=== PATIENT | male | born 1975 | race Caucasian/White ===

== ENCOUNTER → 2017-02-01 | Outpatient (CLI) | payer OTHER ==
[~2017-02-01] MED LIST: ACET-1311 PO; CHN/1 PO; NAPR1TAB9 PO
[2017-02-01 17:30] LABS: BASO % 0.5 %; BASO ABS # 0.05 K/uL (0-0.2); COMPLETE YES; EOS % 1.6 %; HEMATOCRIT 46.5 % (42-52); IG% 0.2 %; LYMPH % 27.4 %; LYMPH ABS # 2.63 K/uL (1.2-3.4); MEAN CELL VOLUME 86.4 fL (80-100); MEAN CORPUSCULAR HEMOGLOBIN 30.7 pg (25-34); MEAN CORPUSCULAR HGB CONC 35.5 g/dl (32-36); MEAN PLATELET VOLUME 9.1 fL (7.4-10.4); MONO % 5.1 %; NEUT % 65.2 %; PLATELET COUNT 224 K/uL (130-400); RED BLOOD COUNT 5.38 M/uL (4.7-6.1)
[2017-02-01 18:12] LABS: ALKALINE PHOSPHATASE 113 U/L (45-117); ALT/SGPT 120 U/L (12-78); AST/SGOT 64 U/L (15-37); BLOOD UREA NITROGEN 6 mg/dl (7-18); BUN/CREATININE RATIO 6.4 (10-20); CALCIUM 8.5 mg/dl (8.5-10.1); CARBON DIOXIDE 25 mmol/L (21-32); CHLORIDE 105 mmol/L (98-107); CREATININE 0.91 mg/dl (0.60-1.40); GLUCOSE 105 mg/dl (70-99); POTASSIUM 3.8 mmol/L (3.5-5.1); SODIUM 140 mmol/L (136-145)
[2017-02-01 18:35] LABS: C-REACTIVE PROTEIN 0.75 mg/dl (0-0.29)
[2017-02-04 04:39] LABS: IGA SERUM 239 mg/dL (81-463); TIS TRANS IGA 1 U/mL (<4)
== END ==
LOC: C.LAB1850 16:54
PROVIDERS: ATTEND Registered Nurse
DX: R19.7 Diarrhea, unspecified (principal)

== ENCOUNTER → 2017-02-15 | Day surgery (SDC) | payer OTHER ==
[2017-02-05 10:13] VITALS: Ht 177.8 cm; Wt 131.8 kg
[~2017-02-15] VITALS: Ht 177.8 cm; Wt 131.8 kg
[~2017-02-15] MED LIST changes: -ACET-1311 PO; +ATROPINE SULFATE 0.1 MG/ML 5ML SYR IV PRN; -CHN/1 PO; +EpHEDrine SULFATE INJ 50 MG/ML AMP IV PRN; +LIDOCAINE HCL 2% 2 ML VIAL (20MG/ML) ONE; -NAPR1TAB9 PO; +PROPOFOL IV EMULSION 10 MG/ML 20 ML VIAL IV ONE; +SODIUM CHLORIDE 0.9% 500ML 500 ML IV ONE
--- NOTE | 2017-02-15 11:56 | Endo History and Physical ---
History & Physical Date of Service: Feb 15, 2017. Chief Complaint: Diarrhea Referring Physician: Dr. Haney History of Present Illness 41 yo CM who presents for colonoscopy secondary to diarrhea. Past Surgical History Hx Cardiac Surgery: No Hx Internal Defibrillator: No Hx Pacemaker: No Hx Abdominal Surgery: No Hx of Implantable Prosthesis: No Hx Post-Op Nausea and Vomiting: No Hx Cancer Surgery: No Hx Thoracic Surgery: No Hx Orthopedic: No Hx Urinary Tract Surgery: Yes (VASECTOMY) Family History None Social History Smoking Status: Former Smoker Hx Substance Use: No Hx Alcohol Use: No Allergies Coded Allergies: No Known Allergies (Unverified , 02/15/17) Current Medications Reported Home Medications Medications Dose Route/Sig Max Daily Dose Days Date Category No Active Prescriptions or Reported Medications Rx Vital Signs Weight (Kilograms): 131.82 Height (Feet): 5 Height (Inches): 10 Date Time Temp Pulse Resp B/P (MAP) Pulse Ox O2 Delivery O2 Flow Rate FiO2 02/15/17 10:57 36.5 84 20 149/92 (111) 96 Room Air Physical Exam General Appearance: WD/WN, no apparent distress Respiratory/Chest: Auscultation: breath sounds normal Cardiovascular: Heart Auscultation: RRR Abdomen: Bowel Sounds: normal Inspection & Palpation: soft, non-distended, no tenderness, guarding & rebound Assessment and Plan Assessment: 41 yo CM who presents for colonoscopy secondary to diarrhea. Plan: Proceed with colonoscopy.
--- NOTE | 2017-02-15 12:35 | GI REPORT ---
Procedure Date: 02/15/2017 12:03 PM Procedure: Colonoscopy Indications: Chronic diarrhea Medicines: Monitored Anesthesia Care Complications: No immediate complications. Estimated Blood Loss: Estimated blood loss: none. Procedure: Pre-Anesthesia Assessment: - Prior to the procedure, a History and Physical was performed, and patient medications and allergies were reviewed. The patient's tolerance of previous anesthesia was also reviewed. The risks and benefits of the procedure and the sedation options and risks were discussed with the patient. All questions were answered, and informed consent was obtained. Prior Anticoagulants: The patient has taken no previous anticoagulant or antiplatelet agents. ASA Grade Assessment: III - A patient with severe systemic disease. After reviewing the risks and benefits, the patient was deemed in satisfactory condition to undergo the procedure. After I obtained informed consent, the scope was passed under direct vision. Throughout the procedure, the patient's blood pressure, pulse, and oxygen saturations were monitored continuously. The scope was introduced through the anus and advanced to the terminal ileum. The colonoscopy was performed without difficulty. The patient tolerated the procedure well. The quality of the bowel preparation was good. The terminal ileum, ileocecal valve, appendiceal orifice, and rectum were photographed. Findings: Two sessile polyps were found in the rectum and in the transverse colon. The polyps were 5 to 7 mm in size. These polyps were removed with a hot snare. Resection and retrieval were complete. Non-bleeding internal hemorrhoids were found during retroflexion. The hemorrhoids were small. Several random biopsies were obtained with cold forceps for histology in the entire colon. Fluid aspiration for cytology was performed in the entire colon. Impression: - Two 5 to 7 mm polyps in the rectum and in the transverse colon, removed with a hot snare. Resected and retrieved. - Non-bleeding internal hemorrhoids. - Several random biopsies were obtained in the entire colon. - Fluid aspiration was performed. Recommendation: - Resume previous diet. - Continue present medications. - Await pathology results. - Repeat colonoscopy for surveillance based on pathology results. - Return to primary care physician as previously scheduled. Douglas Walters DO 02/15/2017 12:34:47 PM This report has been signed electronically. Note Initiated On: 02/15/2017 12:03 PM I attest to the content of the Intraoperative Record and orders documented therein, exceptions below
--- NOTE | 2017-02-15 12:50 | Anesthesiology Progress Note ---
Anesthesia Post Op Note Date & Time Feb 15, 2017 at 12:50 Vital Signs Pain Intensity: 0 Vital Signs Past 12 Hours Date Time Temp Pulse Resp B/P (MAP) Pulse Ox O2 Delivery O2 Flow Rate FiO2 02/15/17 12:40 70 18 118/86 (97) 97 Room Air 02/15/17 12:25 76 18 119/65 (83) 95 Room Air 02/15/17 12:25 76 18 119/65 (83) 96 Room Air 02/15/17 10:57 36.5 84 20 149/92 (111) 96 Room Air Notes Mental Status: alert / awake / arousable, participated in evaluation Pt Amnestic to Procedure: Yes Nausea / Vomiting: adequately controlled Pain: adequately controlled Airway Patency, RR, SpO2: stable & adequate BP & HR: stable & adequate Hydration State: stable & adequate Anesthetic Complications: no major complications apparent
--- NOTE | 2017-02-15 12:58 | Discharge Instructions ---
Endoscopy Patient Instructions Date / Procedure(s) Performed Feb 15, 2017. Colonoscopy Allergy Information Coded Allergies: No Known Allergies (Unverified , 02/15/17) Discharge Date / Findings Feb 15, 2017. Colon polyps Internal Hemorrhoids Random colon biopsies Stool studies collected Medication Instructions OK to resume all medications today as prescribed Reported Home Medications Medications Dose Route/Sig Max Daily Dose Days Date Category No Active Prescriptions or Reported Medications Rx Provider Instructions Activity Restrictions - No exercising or heavy lifting for 24 hours. - Do not drink alcohol the day of the procedure. - Do not drive a car or operate machinery until the day after the procedure. - Do not make any important decisions or sign important papers in 24 hours after the procedure. Following Day: - Return to full activity which may include returning to work/school. Diet Start your diet with liquids and light foods (jello, soup, juice, toast). Then eat your usual diet if not nauseated. Treatment For Common After Affects For mild abdominal pain, bloating, or excessive gas: - Rest - Eat lightly - Lie on right side Follow-Up Information Follow-up with Dr. Haney as scheduled Anesthesia Information What You Should Know You have had a procedure that required some medicine to reduce anxiety and discomfort. This treatment is called moderate sedation. After receiving the treatment, you may be sleepy, but you will be able to breathe on your own. The effects of the treatment may last for several hours. Follow these instructions along with Activity/Diet recommendations noted above: * Do NOT do anything where dizziness or clumsiness would be dangerous. * Rest quietly at home today, then you can be up and about tomorrow. * Have a responsible person stay with you the rest of today. * You may have had an I.V. today. If so, you may take the dressing off later today. Recommendations Call your doctor if: * Trouble breathing * Continuous vomiting for more than 24 hours * Temperature above 101 degrees * Severe abdominal pain or bloating * Pain not relieved by pain medicine ordered * There is increased drainage or redness from any incision * A large amount of rectal bleeding greater than 2-3 tablespoons. (If you had a polyp/s removed or have hemorrhoids, a small amount of blood - from the rectum is to be expected.) * You have any unanswered questions or concerns. IN THE EVENT OF A SERIOUS EMERGENCY, GO TO THE NEAREST EMERGENCY ROOM Your discharge instructions were prepared by provider Douglas Walters. Patient Instructions Signature Page Kwaku Santiago Patient (or Guardian) Signature/Date: I have read and understand the instructions given to me by my caregivers. Caregiver/RN/Doctor Signature/Date: The above-named patient and/or guardian has received patient instructions on this date. + Original Patient Signature Page (only) stays with chart. Please make copy for patient.
[2017-02-15 13:00] VITALS: BP 127/72; PULSE 70; O2SAT 98
== END | disposition home or self-care (01) ==
LOC: C.GI 10:37
PROVIDERS: ATTEND Internal Medicine
DX: K52.9 Noninfective gastroenteritis and colitis, unspecified (principal); K62.1 Rectal polyp; D12.3 Benign neoplasm of transverse colon; K64.8 Other hemorrhoids; E78.5 Hyperlipidemia, unspecified; H40.9 Unspecified glaucoma; Z87.891 Personal history of nicotine dependence; Z98.52 Vasectomy status; Z98.818 Other dental procedure status; E66.9 Obesity, unspecified; Z68.41 Body mass index [BMI] 40.0-44.9, adult

== ENCOUNTER 2017-11-02 09:12 | Emergency (ER) | payer OTHER ==
[~2017-11-02] VITALS: Ht 177.8 cm; Wt 130.8 kg
[2017-11-02 09:27] VITALS: O2SAT 90
[2017-11-02 09:28] VITALS: TEMP 36.7; Ht 177.8 cm; Wt 130.8 kg
--- NOTE | 2017-11-02 09:42 | EMERGENCY ROOM VISIT NOTE ---
History Report prepared by Leeann: Mary Spence Under the Supervision of: Dr. Santhosh iSmpson D.O. First contact with patient: 09:23 Chief Complaint: CHEST PAIN Stated Complaint: CHEST PAIN Nursing Triage Summary: pt reports awaking around 0630 - 0700 and having episodes of severe chest pain lasting seconds coming every couple mins, center of chest non radiating pain takes breath away nausea with pain History of Present Illness The patient is a 41 year old male who presents to the Emergency Room with complaints of intermittent left chest pain since 0700 this morning. He feels short of breath. He reports nausea. He notes the chest pain went away and then came back. The pain does not radiate. He describes the pain as sharp. The pain is not worsened by any movement or breathing. He states that he has never had these symptoms before. He has not seen his PCP for these symptoms. He does not take any medications. He denies any history of HTN, DM, or history of cardiac problems. He denies any family history of CAD. He denies any issues with eating or drinking. He denies any alcohol use. He is a former smoker. Source of History: patient Onset: 0700 this morning Position: chest Quality: sharp Timing: intermittent Associated Symptoms: + nausea Review of Systems See HPI for pertinent positives & negatives. A total of 10 systems reviewed and were otherwise negative. Past Medical & Surgical Medical Problems: (1) No Known Active Medical Problems Family History No significant family history Social History Smoking Status: Former Smoker Smokeless Tobacco Use: No Alcohol Use: none Drug Use: none Occupation Status: employed Current/Historical Medications Scheduled Omeprazole (Prilosec), 20 MG PO DAILY Allergies Coded Allergies: BEE STING (Unverified Allergy, Unknown, SWELLING, 11/02/17) Physical Exam Vital Signs Date Time Temp Pulse Resp B/P (MAP) Pulse Ox O2 Delivery O2 Flow Rate FiO2 11/02/17 13:01 66 18 118/77 94 Room Air 11/02/17 11:41 65 18 138/76 93 Room Air 11/02/17 09:59 72 20 140/92 92 Room Air 11/02/17 09:34 82 11/02/17 09:28 Room Air 11/02/17 09:28 36.7 80 20 144/89 92 Room Air 11/02/17 09:27 90 Room Air Physical Exam GENERAL: Patient is awake, alert, and in no acute distress. Patient is resting comfortably and showing no signs of anxiety EYES: The conjunctivae are clear. The pupils are round and reactive. EARS, NOSE, MOUTH AND THROAT: The nose is without any evidence of any deformity. Mucous membranes are moist tongue is midline NECK: The neck is nontender and supple. RESPIRATORY: Normal respiratory effort is noted there is no evidence of wheezing rhonchi or rales CARDIOVASCULAR: Regular rate and rhythm noted there no murmurs rubs or gallops normal S1 normal S2 GASTROINTESTINAL: The abdomen is soft. Bowel sounds are present in all quadrants. Abdomen is nontender MUSCULOSKELETAL/EXTREMITIES: There is no evidence of gross deformity full range of motion is noted in the hips and shoulders SKIN: There is no obvious evidence of any rash. There are no petechiae, pallor or cyanosis noted. NEUROLOGIC: Patient is awake alert and oriented x3. Medical Decision & Procedures ER Provider Diagnostic Interpretation: Radiology results as stated below per my review and radiologist interpretation: CHEST ONE VIEW PORTABLE CLINICAL HISTORY: CHEST PAIN pain COMPARISON STUDY: 2013 FINDINGS: Mild cardiomegaly. Lungs are clear. Diaphragms smooth. IMPRESSION: Mild cardiomegaly. Otherwise negative study. The above report was generated using voice recognition software. It may contain grammatical, syntax or spelling errors. Electronically signed by: Pedro English M.D. 11/02/2017 10:00 AM Dictated Date/Time: 11/02/2017 10:00 AM Laboratory Results 11/02/17 09:25 Red Blood Count 5.75, Mean Corpuscular Volume 84.9, Mean Corpuscular Hemoglobin 30.6, Mean Corpuscular Hemoglobin Concent 36.1, Mean Platelet Volume 8.8, Neutrophils (%) (Auto) 62.2, Lymphocytes (%) (Auto) 28.6, Monocytes (%) (Auto) 5.7, Eosinophils (%) (Auto) 2.6, Basophils (%) (Auto) 0.7, Neutrophils # (Auto) 5.36, Lymphocytes # (Auto) 2.46, Monocytes # (Auto) 0.49, Eosinophils # (Auto) 0.22, Basophils # (Auto) 0.06 11/02/17 09:25 Test 11/02/17 09:25 11/02/17 11:40 White Blood Count 8.61 K/uL (4.8-10.8) Red Blood Count 5.75 M/uL (4.7-6.1) Hemoglobin 17.6 g/dL (14.0-18.0) Hematocrit 48.8 % (42-52) Mean Corpuscular Volume 84.9 fL (80-100) Mean Corpuscular Hemoglobin 30.6 pg (25-34) Mean Corpuscular Hemoglobin Concent 36.1 g/dl (32-36) Platelet Count 217 K/uL (130-400) Mean Platelet Volume 8.8 fL (7.4-10.4) Neutrophils (%) (Auto) 62.2 % Lymphocytes (%) (Auto) 28.6 % Monocytes (%) (Auto) 5.7 % Eosinophils (%) (Auto) 2.6 % Basophils (%) (Auto) 0.7 % Neutrophils # (Auto) 5.36 K/uL (1.4-6.5) Lymphocytes # (Auto) 2.46 K/uL (1.2-3.4) Monocytes # (Auto) 0.49 K/uL (0.11-0.59) Eosinophils # (Auto) 0.22 K/uL (0-0.5) Basophils # (Auto) 0.06 K/uL (0-0.2) RDW Standard Deviation 41.3 fL (36.4-46.3) RDW Coefficient of Variation 13.5 % (11.5-14.5) Immature Granulocyte % (Auto) 0.2 % Immature Granulocyte # (Auto) 0.02 K/uL (0.00-0.02) Prothrombin Time 10.7 SECONDS (9.0-12.0) Prothromb Time International Ratio 1.0 (0.9-1.1) Activated Partial Thromboplast Time 26.0 SECONDS (21.0-31.0) Partial Thromboplastin Ratio 1.0 D-Dimer 230 ug/L FEU (0-500) Anion Gap 6.0 mmol/L (3-11) Est Creatinine Clear Calc Drug Dose 128.2 ml/min Estimated GFR () 105.1 Estimated GFR (Non- 90.7 BUN/Creatinine Ratio 5.0 (10-20) Calcium Level 9.1 mg/dl (8.5-10.1) Total Bilirubin 0.5 mg/dl (0.2-1) Direct Bilirubin 0.1 mg/dl (0-0.2) Aspartate Amino Transf (AST/SGOT) 46 U/L (15-37) Alanine Aminotransferase (ALT/SGPT) 74 U/L (12-78) Alkaline Phosphatase 119 U/L (45-117) Total Protein 7.7 gm/dl (6.4-8.2) Albumin 4.0 gm/dl (3.4-5.0) Lipase 168 U/L (73-393) Troponin I < 0.015 ng/ml (0-0.045) Laboratory results per my review. ECG Per My Interpretation Indication: chest pain Rate (beats per minute): 83 Rhythm: normal sinus Findings: no acute ischemic change, no ectopy (No PVCs) Change: Repeat ECG: Normal Sinus Rhythm 66 bpm Findings: No ectopy. No acute ischemic changes. No changes from prior. ED Course 0936: The patient was evaluated in room A4B. A complete history and physical examination were performed. 1226: I reassessed the patient at this time. He is feeling better and resting comfortably. I discussed the results and treatment plan with the patient. I answered all pertaining questions that he had. He expressed understanding and verbalized agreement. The patient will be discharged home. Medical Decision Prior records/ancillary studies reviewed. Triage Nursing notes reviewed. The patient's history was concerning for chest pain. Differential diagnosis: Etiologies such as cardiac ischemia, aortic dissection, pulmonary embolism, pneumonia, pneumothorax, musculoskeletal, infections, pericarditis, myocarditis , esophageal rupture, gastrointestinal, as well as others were entertained. The patient is a 41-year-old male who presented to the emergency department for evaluation of chest pain. The patient has had ongoing chest pain through the day. The patient had serial EKGs as well as serial troponin measurements in the emergency department. I discussed the patient's laboratory and radiographic studies with him. I also discussed the limitations of the emergency department workup for chest pain with him. At this time I feel his likelihood of acute coronary syndrome is low. I have recommended that he rest and avoid any strenuous activity. He was also encouraged to continue all medications as prescribed and follow-up with his primary care physician as soon as possible. Otherwise he was encouraged to return the emergency department immediately if symptoms change worsen or the need arises. Medication Reconcilliation Current Medication List: was personally reviewed by me Blood Pressure Screening Patient's blood pressure: Elevated blood pressure Blood pressure disposition: Elevated BP felt to be situational Impression Primary Impression: Left sided chest pain Scribe Attestation The scribe's documentation has been prepared under my direction and personally reviewed by me in its entirety. I confirm that the note above accurately reflects all work, treatment, procedures, and medical decision making performed by me. Departure Information Dispostion Home / Self-Care Prescriptions Omeprazole (Prilosec) 20 Mg Capcr 20 MG PO DAILY, #30 CAP Prov: Santhosh Simpson, DO 11/02/17 Referrals Santhosh Haney M.D. (PCP) Forms Call Back Authorization, HOME CARE DOCUMENTATION FORM, IMPORTANT VISIT INFORMATION Patient Instructions ED Chest Pain Atypical Unkn Cause, My [facility] Additional Instructions Continue all medications as prescribed. Consider using Maalox or Mylanta as directed for symptomatic relief. Avoid any strenuous activity. Call your family doctor to schedule a follow-up appointment. You may require further studies such as a stress test to further evaluate the cause of your discomfort. Return to the emergency department immediately if symptoms change worsening the need arises.
[2017-11-02 09:44] LABS: BASO % 0.7 %; BASO ABS # 0.06 K/uL (0-0.2); EOS % 2.6 %; EOS ABS # 0.22 K/uL (0-0.5); HEMATOCRIT 48.8 % (42-52); HEMOGLOBIN 17.6 g/dL (14.0-18.0); IG# 0.02 K/uL (0.00-0.02); LYMPH % 28.6 %; LYMPH ABS # 2.46 K/uL (1.2-3.4); MEAN CELL VOLUME 84.9 fL (80-100); MEAN CORPUSCULAR HEMOGLOBIN 30.6 pg (25-34); MEAN CORPUSCULAR HGB CONC 36.1 g/dl (32-36); MEAN PLATELET VOLUME 8.8 fL (7.4-10.4); MONO % 5.7 %; MONO ABS # 0.49 K/uL (0.11-0.59); NEUT % 62.2 %; NEUT ABS # 5.36 K/uL (1.4-6.5); PLATELET COUNT 217 K/uL (130-400); RED CELL DISTRIBUTION WIDTH CV 13.5 % (11.5-14.5); RED CELL DISTRIBUTION WIDTH SD 41.3 fL (36.4-46.3); WHITE BLOOD COUNT 8.61 K/uL (4.8-10.8)
--- NOTE | 2017-11-02 10:01 | DIAGNOSTIC IMAGING REPORT ---
CHEST ONE VIEW PORTABLE CLINICAL HISTORY: CHEST PAIN pain COMPARISON STUDY: 2013 FINDINGS: Mild cardiomegaly. Lungs are clear. Diaphragms smooth. IMPRESSION: Mild cardiomegaly. Otherwise negative study. The above report was generated using voice recognition software. It may contain grammatical, syntax or spelling errors. Electronically signed by: Pedro English M.D. 11/02/2017 10:00 AM Dictated Date/Time: 11/02/2017 10:00 AM
[2017-11-02 10:08] LABS: CALCIUM 9.1 mg/dl (8.5-10.1); CREATININE 1.01 mg/dl (0.60-1.40); POTASSIUM 3.7 mmol/L (3.5-5.1)
[2017-11-02 10:10] LABS: TOTAL PROTEIN 7.7 gm/dl (6.4-8.2)
[2017-11-02] MEDS ORDERED: OMEP20CA59 PO (12:21)
[2017-11-02 13:01] VITALS: BP 118/77; PULSE 66; O2SAT 94
== END 2017-11-02 13:04 | disposition home or self-care (01) ==
LOC: C.EDB 09:13 → C.EDA 13:04
DX: R07.9 Chest pain, unspecified (principal); Z87.891 Personal history of nicotine dependence; Z91.030 Bee allergy status

== ENCOUNTER 2019-03-24 05:14 | Inpatient (IN) ==
[2019-03-24] MEDS ORDERED: SUCCINYLCHOLINE CHLORIDE 20 MG/ML 10 ML VIAL IV ONE (05:15)
[2019-03-24] MEDS ORDERED: LIDOCAINE 2% 20 MG/ML 5 ML SYR IV ONE (05:15)
[2019-03-24] MEDS ORDERED: VECURONIUM BROMIDE 10 MG VIAL IV ONE (05:15)
[2019-03-24] MEDS ORDERED: AMIODARONE HCL INJ 50 MG/ML 3 ML VIAL IV ONE (05:15)
[2019-03-24] MEDS ORDERED: ETOMIDATE 2 MG/ML 20 ML VIAL IV ONE (05:15)
[2019-03-24] MEDS ORDERED: fentaNYL citrate 100 MCG/2 ML CARP IV ONE (05:15)
[2019-03-24] MEDS ORDERED: MIDAZOLAM HCL 5 MG/ML VIAL IV ONE (05:15)
[2019-03-24] MEDS ORDERED: SODIUM BICARBONATE 8.4% INJ 50 MEQ/50 ML VIAL IV ONE (05:15)
[2019-03-24] MEDS ORDERED: MAG SULFATE 50% 1GM/2ML VIAL IV ONE (05:15)
[2019-03-24] MEDS ORDERED: NITROGLYCERIN SL 0.4 MG/TAB TAB SL PRN (05:17)
[2019-03-24] MEDS ORDERED: NITROGLYCERIN SL 0.4 MG/TAB TAB ONE (05:18)
[2019-03-24 05:23] LABS: Basophils # (auto) 0.08 K/uL (0-0.2); Basophils % (auto) 0.8 %; Eosinophils % (auto) 3.1 %; Hematocrit (blood only) 47.8 % (42-52); Hemoglobin 17.1 g/dL (14.0-18.0); Immature Granulocytes # (auto) 0.04 K/uL (0.00-0.02); Immature Granulocytes % (auto) 0.4 %; Lymphocytes # (auto) 3.54 K/uL (1.2-3.4); Lymphocytes % (auto) 36.4 %; Mean Corpuscular Hgb Conc 35.8 g/dL (32-36); Mean Corpuscular Volume 83.7 fL (80-100); Mean Platelet Volume 9.5 fL (7.4-10.4); Monocytes # (auto) 0.75 K/uL (0.11-0.59); Monocytes % (auto) 7.7 %; Neutrophils # (auto) 5.01 K/uL (1.4-6.5); Neutrophils % (auto) 51.6 %; Platelet Count 200 K/uL (130-400); RDW Coefficient of Variation 13.7 % (11.5-14.5); RDW Standard Deviation 41.8 fL (36.4-46.3); Red Blood Count 5.71 M/uL (4.7-6.1); White Blood Count 9.72 K/uL (4.8-10.8)
[2019-03-24] MEDS ORDERED: RAPID SEQUENCE INDUCTION BAG ONE ×2 (05:26→07:09)
[2019-03-24] MEDS ORDERED: AMIODARONE 360MG / 200ML D5W IV ONE (05:29)
[2019-03-24] MEDS ORDERED: HEPARIN (PORCINE) 1000 UNIT/ML 10 ML (CATH LAB USE ONLY) ONE ×2 (05:31→08:53)
[2019-03-24] MEDS ORDERED: fentaNYL citrate 100 MCG/2 ML VIAL ONE (05:31)
[2019-03-24] MEDS ORDERED: NiCARDipine HCL INJ 2.5 MG/ML 10 ML AMP ONE (05:31)
[2019-03-24] MEDS ORDERED: MIDAZOLAM HCL 1 MG/ML 2ML VIAL ONE (05:31)
[2019-03-24] MEDS ORDERED: NITROGLYCERIN/D5W 100MCG/ML 20ML SYR ONE (05:32)
[2019-03-24] MEDS ORDERED: MIDAZOLAM HCL 5 MG/ML 1 ML VIAL IV STA (05:39)
[2019-03-24] MEDS ORDERED: fentaNYL citrate 100 MCG/2 ML VIAL IV STA (05:39)
[2019-03-24] MEDS ORDERED: PROPOFOL IV EMULSION 10 MG/ML 100 ML VIAL IV ONE (05:40)
[2019-03-24] MEDS ORDERED: PROPOFOL 1,000 MG/100 ML VIAL IV SCH (05:45)
[2019-03-24 05:49] LABS: iSTAT Creatinine 1.1 mg/dl (0.6-1.3); iSTAT Hemoglobin 19.7 g/dl (14.0-18.0); iSTAT Ionized Calcium 1.07 mmol/l (1.12-1.32); iSTAT Potassium 3.1 mEq/L (3.3-5.0)
--- NOTE | 2019-03-24 05:52 | Pre Anesthesia Assessment ---
Date of Service March 24, 2019 Pre Sedation Assessment Vital Signs Temp Pulse Resp BP BP Pulse Ox 03/24/19 05:46 121 H 22 95/69 L 100 03/24/19 05:01 36.5 C 20 175/119 H 95 Cardiovascular RRR, no murmur, no edema Respiratory normal respiratory effort, lungs clear to auscultation Pre-Sedation Airway Assessment Smoking Status: Current every day smoker Hx Sleep Apnea: No Hx Difficult Intubation: No Short, Thick Neck: No Thyromental Distance: > or= 3.5 Finger Breadths Oral Cavity: + WNL Mallampati Class: III Procedure Planning Contraindications for Sedation: none Current Medications Reviewed: Yes Notes The planned sedation has been discussed with the patient. Informed Consent was obtained. I have identified the patient, determined the appropriateness of sedation and have assessed the patient immediately prior to the procedure. All medicine(s) and interventions are by my order.
--- NOTE | 2019-03-24 05:56 | Cardiology Consultation ---
Date of Consultation March 24, 2019 Assessment & Plan (1) STEMI (ST elevation myocardial infarction): Presentation consistent with inferior STEMI complicated by cardiac arrest in ED. Recommend proceeding with emergent cardiac catheterization and likely primary PCI. No apparent contraindications to procedure. Further recommendations pending findings of coronary angiography. History of Present Illness History of Present Illness 43-year-old man here with acute chest pain and ECG concerning for acute PA. Patient seen emergently in the ED after heart alert activated from the field. In the ED after receiving nitroglycerin had V. fib arrest requiring defibrillation x2. Subsequently intubated and started on amiodarone. No prior cardiac history. Cardiac risk factors include morbid obesity. No other known medical issues. Chest pain reportedly woke patient from sleep. Given aspirin in route. Chest pain at time of arrival 03/01. Initially hemodynamically stable. EKG showed inferior ST elevations. Allergies Allergy/AdvReac Type Severity Reaction Status Date / Time bee venom protein (honey bee) Allergy Unknown SWELLING Unverified 03/24/19 05:21 Home Medications Home Medications Medication Instructions Recorded Confirmed Type buspirone 10 mg tablet 10 mg PO Q12H 30 Days #60 tab 01/31/19 03/24/19 Rx Patient History Medical History No pertinent past medical history No significant past surgical history No chronic diseases present Family History Other Family history non-contributory Social History Preferred Language: Guamanian Feels Safe at Home: Yes Smoking Status: Current every day smoker Review of Systems Review of Systems: Not obtained as intubated, emergent situation Physical Exam Constitutional: Intubated Eyes: + anicteric sclerae Respiratory: + respiratory distress Auscultation: no crackles Cardiovascular: Rate/Rhythm: regular rhythm and + tachycardic Gastrointestinal (Abdomen): Inspection/Auscultation: + abdomen distended Skin: no rashes, warm and dry Psychiatric: Intubated sedated Results & Data Vital Signs (Past 12 Hours) Vital Signs Temp Pulse Resp BP BP Pulse Ox 03/24/19 05:46 121 H 22 95/69 L 100 03/24/19 05:01 36.5 C 20 175/119 H 95 PG Care Time/CCT Total # of Minutes Spent Total Time Spent with Patient: Total time spent is greater than 50% in coordination of care (as documented) at patient's floor/unit and/or counseling patient:
[2019-03-24 06:00] LABS: Partial Thromboplastin Time 27.5 Seconds (21.0-31.0); Prothrombin Time 10.6 Seconds (9.0-12.0)
[2019-03-24 06:00] LABS: Albumin Level 4.1 gm/dl (3.4-5.0); BUN Creatinine Ratio 7.6 (10-20); Calcium 8.8 mg/dl (8.5-10.1); Creatinine Clr Calc Pharmacy 117.7 ml/min; Est GFR (African American) 96.7; Est GFR (Non-African American) 83.4; Magnesium 1.9 mg/dl (1.8-2.4); Potassium 4.4 mmol/L (3.5-5.1)
[2019-03-24 06:12] LABS: Albumin Globulin Ratio 1.3 (0.9-2); Bilirubin,Total 0.5 mg/dl (0.2-1); Creatine Kinase MB 3.2 ng/ml (0.5-3.6); Globulin 3.1 gm/dl (2.5-4.0); Total Protein 7.2 gm/dl (6.4-8.2); Troponin I 0.019 ng/ml (0-0.045)
[2019-03-24] MEDS ORDERED: EPINEPHrine INJ 1 MG/ML AMP ONE (06:14)
--- NOTE | 2019-03-24 06:34 | XRay Report ---
XR chest 1V portable CLINICAL HISTORY: Atypical chest pain COMPARISON STUDY: 11/02/2017 FINDINGS: The heart is borderline enlarged. There is no failure. There is no focal pulmonary consolid ation. There are no pleural effusions.[ IMPRESSION: No active disease in the chest. Electronically signed by: Raleigh Morfin M.D. 03/24/2019 6:32 AM
--- NOTE | 2019-03-24 06:35 | XRay Report ---
XR chest 1V portable CLINICAL HISTORY: Respiratory failure COMPARISON STUDY: 03/24/2019 FINDINGS: There is an endotracheal tube position 51 mm above the dayna. The heart is borderline enla rged. There are bilateral pulmonary airspace opacities. Diagnostic considerations include pulmonary e arsen versus aspiration.[ IMPRESSION: 1. Interval development of bilateral pulmonary airspace opacities. Likely diagnostic considerations i nclude pulmonary edema versus aspiration 2. Endotracheal tube 51 mm above the dayna Electronically signed by: Raleigh Morfin M.D. 03/24/2019 6:33 AM
[2019-03-24] MEDS ORDERED: SODIUM BICARBONATE 8.4% 150 MEQ in DEXTROSE 5% 1,000 ML IV SCH ×2 (07:15→07:30)
--- NOTE | 2019-03-24 07:31 | Emergency Department Note ---
Entered by Camilla Solis acting as a scribe for Melanie Sheppard MD History of Present Illness General Chief complaint: Chest Pain Stated complaint: CHEST PAIN Time Seen by Provider: 03/24/19 05:17 Source: patient Mode of arrival: EMS History of Present Illness Onset (ago): hour(s) 1 Location: chest Radiation: extremity (left arm) Severity: severe Pain Consistency: + other (Sudden) Current Pain Intensity: 7 Quality: + other (Chest pain) Associated symptoms: + chest pain and + shortness of breath Treatments prior to arrival: aspirin The patient is a 43 year old male presenting to the Emergency Department via EMS complaining of sudden chest pain starting 1 hour ago. The patient reports that he has severe chest pain. He currently rates this pain 03/01. He states that he has never experienced this type of pain before. He notes that he regularly smokes about a pack of cigarettes per day. He adds that he has no cardiac hi story and that he has no family cardiac history. EMS reports that the patient was at rest and began to experience sudden chest pain. They state that this chest pain radiated to the patients left arm. They explain that the patient was short of breath. They note that the patient reported that he had no past medical history, past surgical history or allergies. They add that it is unknown if the patient follows with a PCP. Home Medications Home Medications Medication Instructions Recorded Confirmed Type buspirone 10 mg tablet 10 mg PO Q12H 30 Days #60 tab 01/31/19 03/24/19 Rx Allergies Allergy/AdvReac Type Severity Reaction Status Date / Time bee venom protein (honey bee) Allergy Unknown SWELLING Unverified 03/24/19 05:21 Past Med/Surg History Medical History No pertinent past medical history No significant past surgical history No chronic diseases present Family History Other Family history non-contributory Social History Preferred Language: Mauritian Feels Safe at Home: Yes Smoking Status: Current every day smoker Review of Systems See HPI for pertinent positives & negatives. and A total of 10 systems reviewed and were otherwise negative Physical Exam Vital Signs Vital Signs - 24 hr 03/24/19 05:01 08/02/19 05:46 03/24/19 06:57 Temperature 36.5 C Temperature Source Oral Sepsis Recent Fever Within 48 Hours No Sepsis Action Taken by Nursing No Action Required Pulse Rate [Left Apical] 121 H Pulse Rhythm Regular Respiratory Rate 20 22 24 Respiratory Effort / Characteristics Normal for Patient Blood Pressure 175/119 H Blood Pressure [Left Arm] 95/69 L Blood Pressure Mean 137 Blood Pressure Mean [Left Arm] 77 Blood Pressure Position Lying Blood Pressure Position [Left Arm] Lying Pulse Oximetry 95 100 Oxygen Delivery Method Room Air Fraction of Inspired Oxygen 100 Vital signs reviewed. General: Critically ill-appearing 43 year old male. HEENT: No scleral icterus, PERRLA, neck supple. Atraumatic. Cardiovascular: Regular rate and rhythm, no extra sounds. Pulmonary: Clear to auscultation bilaterally, normal work of breathing. Abdomen: Soft, nontender, nondistended, positive bowel sounds. Obese abdomen. Musculoskeletal: Atraumatic, no peripheral edema. Neurologic: Patient awake alert and oriented x 3. Skin: Warm, dry, no rash Procedures Intubation Time out performed: Yes sedative: Etomidate Mg Given: 20 paralytic: Succinylcholine Mg Given: 100 Laryngoscope: fiber optic video scope ET Tube Size: 7.5 ET Tube Uncuffed: No Tube Secured Depth (cm): 23 Tube Secured Location: lips Tube Placement Confirmation: visualized tube passing through cords, equal breath sounds bilaterally and no breath sounds over epigastrium Patient Tolerated Procedure: well Course 0513: The patient was evaluated in room B1, and a complete history and physical examination were performed. 0519: The patient went into cardiac arrest at this time. 0521: Shock administered at this time. 0522: Epinephrine administered. 0523: Shock administered at this time. 0524: The patient regained his pulse at this time. 0525: Magnesium 2g IV 0526: Patient's rhythm V. fib, 88% O2 saturation 0527: The patients case was discussed with Dr. Horn interventional cardiology at the bedside, patient will be taken to the Armature Inspector. 0530: Etomidate 20 mg and 100 mg of succinylcholine IV 0531: I intubated the patient at this time. 0541: Fentanyl 100 mcg IV 0543: Versed 4mg IV 0548: The patient left the Emergency Department at this time and was taken to the cardiac catheterization lab. 0630: I called the patient's at this time and informed her of the patient's situation. Consultations Consultation #1: I discussed the patients case with Dr. Horn Evening Sitter. He will evaluate the patient for further admission. Time: 05:27 Administered Medications Discontinued Medications Amiodarone HCl/Dextrose (Nexterone / D5w) Confirm Administered Dose 360 mg IV .STK-MED ONE Stop: 03/24/19 05:30 Last Admin: 03/24/19 05:38 Dose: 360 mg Documented by: [id number] Cosigned by: [id number] Miscellaneous () Confirm Administered Dose 1 ea .ROUTE .STK-MED ONE Stop: 03/24/19 05:27 Last Admin: 03/24/19 05:37 Dose: 1 ea Documented by: [id number] Nitroglycerin (Nitrostat) Confirm Administered Dose 1.2 mg .ROUTE .STK-MED ONE Stop: 03/24/19 05:19 Last Admin: 03/24/19 05:36 Dose: 0.4 mg Documented by: [id number] Propofol (Diprivan) Confirm Administered Dose 1,000 mg IV .STK-MED ONE Stop: 03/24/19 05:41 Last Admin: 03/24/19 05:48 Dose: 1,000 mg Documented by: [id number] Cosigned by: [id number] Medical Decision Making Differential Diagnosis Differential diagnoses includes acute coronary syndrome, pulmonary embolus, aortic dissection, musculoskeletal pain, pneumonia, pleural effusion, pneumothorax, gastritis, peptic ulcer disease amongst others. Medical Records Attestation: I reviewed the patient's medical records. Home Medications Current Medication List: was personally reviewed by wv Laboratory Data Attestation: I reviewed the patient's lab results. Result diagrams: 03/24/19 05:05 03/24/19 05:05 Lab Results 03/24/19 03/24/19 03/24/19 Range/Units 05:05 05:05 05:34 WBC 9.72 (4.8-10.8) K/uL RBC 5.71 (4.7-6.1) M/uL Hgb 17.1 (14.0-18.0) g/dL POC Hgb 19.7 H (14.0-18.0) g/dl Hct 47.8 (42-52) % POC Hct 58 H (42-52) % MCV 83.7 (80-100) fL MCH 29.9 (25-34) pg MCHC 35.8 (32-36) g/dL RDW Std Deviation 41.8 (36.4-46.3) fL RDW Coeff of Mynor 13.7 (11.5-14.5) % Plt Count 200 (130-400) K/uL MPV 9.5 (7.4-10.4) fL Immature Gran % (Auto) 0.4 % Neut % (Auto) 51.6 % Lymph % (Auto) 36.4 % Hettinger % (Auto) 7.7 % Eos % (Auto) 3.1 % Baso % (Auto) 0.8 % Immature Gran # (Auto) 0.04 H (0.00-0.02) K/uL Neut # (Auto) 5.01 (1.4-6.5) K/uL Lymph # (Auto) 3.54 H (1.2-3.4) K/uL Hettinger # (Auto) 0.75 H (0.11-0.59) K/uL Eos # (Auto) 0.30 (0-0.5) K/uL Baso # (Auto) 0.08 (0-0.2) K/uL PT (9.0-12.0) Seconds INR (0.9-1.1) APTT (21.0-31.0) Seconds PTT Ratio POC Sodium 139 (135-144) mEq/L Sodium 137 (136-145) mmol/L POC Potassium 3.1 L (3.3-5.0) mEq/L Potassium 4.4 (3.5-5.1) mmol/L POC Chloride 103 (101-112) mEq/L Chloride 103 (98-107) mmol/L Carbon Dioxide 25 (21-32) mmol/L POC Total CO2 14 L (24-31) mEq/l Anion Gap 9.0 (3-11) POC Anion Gap 25.0 (16-25) mmol/L POC BUN 9 (7-18) mg/dl BUN 8 (7-18) mg/dl Creatinine 1.07 (0.6-1.4) mg/dl POC Creatinine 1.1 (0.6-1.3) mg/dl Est Cr Clr Drug Dosing 117.7 ml/min Est GFR ( Amer) 96.7 Est GFR (Non-Af Amer) 83.4 BUN/Creatinine Ratio 7.6 L (10-20) Glucose 152 H (70-99) mg/dl POC Glucose (other) 166 H (70-99) mg/dl Calcium 8.8 (8.5-10.1) mg/dl POC Ioniz Calcium Nino 1.07 L (1.12-1.32) mmol/l Magnesium 1.9 (1.8-2.4) mg/dl Total Bilirubin 0.5 (0.2-1) mg/dl AST 20 (15-37) U/L ALT 28 (12-78) U/L Alkaline Phosphatase 143 H (45-117) U/L Total Creatine Kinase 178 (39-308) U/L CK-MB (CK-2) 3.2 (0.5-3.6) ng/ml CK/CKMB % Calc 1.8 (0-3.0) POC Troponin I (0-0.045) ng/ml Troponin I 0.019 (0-0.045) ng/ml Total Protein 7.2 (6.4-8.2) gm/dl Albumin 4.1 (3.4-5.0) gm/dl Globulin 3.1 (2.5-4.0) gm/dl Albumin/Globulin Ratio 1.3 (0.9-2) Lipase 196 (73-393) U/L TSH 3.220 (0.300-4.500) uIu/ml Specimen Hemolysis 03/24/19 03/24/19 Range/Units 05:36 05:40 WBC (4.8-10.8) K/uL RBC (4.7-6.1) M/uL Hgb (14.0-18.0) g/dL POC Hgb (14.0-18.0) g/dl Hct (42-52) % POC Hct (42-52) % MCV (80-100) fL MCH (25-34) pg MCHC (32-36) g/dL RDW Std Deviation (36.4-46.3) fL RDW Coeff of Mynor (11.5-14.5) % Plt Count (130-400) K/uL MPV (7.4-10.4) fL Immature Gran % (Auto) % Neut % (Auto) % Lymph % (Auto) % Hettinger % (Auto) % Eos % (Auto) % Baso % (Auto) % Immature Gran # (Auto) (0.00-0.02) K/uL Neut # (Auto) (1.4-6.5) K/uL Lymph # (Auto) (1.2-3.4) K/uL Hettinger # (Auto) (0.11-0.59) K/uL Eos # (Auto) (0-0.5) K/uL Baso # (Auto) (0-0.2) K/uL PT 10.6 (9.0-12.0) Seconds INR 1.0 (0.9-1.1) APTT 27.5 (21.0-31.0) Seconds PTT Ratio 1.0 POC Sodium (135-144) mEq/L Sodium (136-145) mmol/L POC Potassium (3.3-5.0) mEq/L Potassium (3.5-5.1) mmol/L POC Chloride (101-112) mEq/L Chloride (98-107) mmol/L Carbon Dioxide (21-32) mmol/L POC Total CO2 (24-31) mEq/l Anion Gap (3-11) POC Anion Gap (16-25) mmol/L POC BUN (7-18) mg/dl BUN (7-18) mg/dl Creatinine (0.6-1.4) mg/dl POC Creatinine (0.6-1.3) mg/dl Est Cr Clr Drug Dosing ml/min Est GFR ( Amer) Est GFR (Non-Af Amer) BUN/Creatinine Ratio (10-20) Glucose (70-99) mg/dl POC Glucose (other) (70-99) mg/dl Calcium (8.5-10.1) mg/dl POC Ioniz Calcium Nino (1.12-1.32) mmol/l Magnesium (1.8-2.4) mg/dl Total Bilirubin (0.2-1) mg/dl AST (15-37) U/L ALT (12-78) U/L Alkaline Phosphatase (45-117) U/L Total Creatine Kinase (39-308) U/L CK-MB (CK-2) (0.5-3.6) ng/ml CK/CKMB % Calc (0-3.0) POC Troponin I < 0.03 (0-0.045) ng/ml Troponin I (0-0.045) ng/ml Total Protein (6.4-8.2) gm/dl Albumin (3.4-5.0) gm/dl Globulin (2.5-4.0) gm/dl Albumin/Globulin Ratio (0.9-2) Lipase (73-393) U/L TSH (0.300-4.500) uIu/ml Specimen Hemolysis Imaging Data Radiologist's Impression: Radiology results as stated below per my review and the radiologist's interpretation: XR chest 1V portable CLINICAL HISTORY: Atypical chest pain COMPARISON STUDY: 11/02/2017 FINDINGS: The heart is borderline enlarged. There is no failure. There is no focal pulmonary consolidation. There are no pleural effusions.[ IMPRESSION: No active disease in the chest. Electronically signed by: Raleigh Morfin M.D. 03/24/2019 6:32 AM XR chest 1V portable CLINICAL HISTORY: Respiratory failure COMPARISON STUDY: 03/24/2019 FINDINGS: There is an endotracheal tube position 51 mm above the dayna. The heart is borderline enlarged. There are bilateral pulmonary airspace opacities. Diagnostic considerations include pulmonary edema versus aspiration.[ IMPRESSION: 1. Interval development of bilateral pulmonary airspace opacities. Likely diagnostic considerations include pulmonary edema versus aspiration 2. Endotracheal tube 51 mm above the dayna Electronically signed by: Raeligh Morfin M.D. 03/24/2019 6:33 AM ECG Data Attestation: I personally reviewed and interpreted this ECG as follows: Indication: chest pain Rate (beats per minute): 87 Rhythm: normal sinus Findings: + ST depression (anteriorly) and + ST elevation (in inferior leads) Blood Pressure Blood Pressure Findings: Low blood pressure Blood Pressure Disposition: further management by hospitalist TRIP Thorne This patient was evaluated and appeared to be in no significant distress. IV access was obtained and laboratory work was drawn. The patient was placed on a raw material planner. Patient did receive aspirin prior to arrival. EKG prehospital and on arrival confirms an inferior ST elevation IA. Patient was given 1 sublingual tablet of nitroglycerin. He had a sudden V. fib cardiac arrest witnessed in the emergency department. CPR was initiated immediately. Patient was given 1 amp of epi and placed on the defibrillator. Patient was shocked x2 and converted to a sinus tachycardia with significant irregularity. Patient did receive 2 g of IV magnesium. Patient had palpable pulses. He was given 150 mg of IV amiodarone and placed on a drip. After intubation, patient was sedated with IV Versed and fentanyl. He was placed on a propofol drip and given a 50 mg bolus by myself. Patient was taken to the catheterization lab by Dr. Horn. I did contact the patient's letting her know his critical state. She states she is on her way to the hospital. RAMÍREZ URRUTIA was called in the Armature Inspector. I responded and was asked to help arrange transfer to [facility]. Dr. Horn was at the patient's side continuing his interventions and ACLS protocols. Compressions were in progress. Another call was made to the patient's , Joselien, advising her of the plans for transfer to [facility]. Impression & Plan STEMI (ST elevation myocardial infarction), Cardiac arrest with ventricular fibrillation Critical Care Time Critical Care Time: Yes Total Critical Care Time: 60 I have personally spent 80 minutes of critical care time in the direct management of this patient. This includes bedside care, interpretation of diagnostic studies, and testing, discussion with consultants, patient, and family members, and other required patient management activities. This 80 minutes is in excess of all separately billable procedures. Discharge Plan Visit Data *Final* Discharge Date/Time: 03/24/19 05:50 Chief Complaint: Chest Pain Stated Complaint: CHEST PAIN ED Provider: Melanie Sheppard Discharge Problem: STEMI (ST elevation myocardial infarction), Cardiac arrest with ventricular fibrillation Patient Disposition: Admitted As Inpatient Discharge Instructions Interventions: ED Discharge Assessment Last Done: 03/24/19 05:50 Forms Stand Alone Forms: Call Back Authorization, [facility] Prescriptions Prescriptions: No Action buspirone 10 mg tablet 10 mg PO Q12H 30 Days Qty: 60 RF: 3 Referrals Referrals: Santhosh Haney MD [Primary Care Provider] - Discharge Problem: STEMI (ST elevation myocardial infarction) Qualifiers: Involved coronary artery: unspecified coronary artery Qualified Code(s): I21.3 - ST elevation (STEMI) myocardial infarction of unspecified site The scribe's documentation has been prepared under my direction and personally reviewed by me in its entirety. I confirm that the note above accurately reflects all work, treatment, procedures, and medical decision making performed by me.
--- NOTE | 2019-03-24 07:36 | Critical Care Consultation ---
Date of Consultation March 24, 2019 Assessment & Plan (1) Cardiac arrest with ventricular fibrillation: Reason Critically Ill: Mr. Kwaku Santiago is a 43 y/o male with ECG STEMI consistent with inferior infarct, cardiac arrest from cardiogenic shock with ventricular fibrillation, CPR/ALCS performed, PCI performed with stent placed to 100% occluded RCA with return to spontaneous circulation. Patient was transferred to [facility] by helicopter transport. Neuro: Sedation was given Midazolam Also received fentanyl Patient is also under neuromuscular blockade with rocuronium Patient packed in ice to neck, axilla, groin. Cardiac Hx of smoking and obesity for cardiac risk factors. Had ASA in route and NTG in ED STEMI consistent with inferior infarct Cardiac cath Findings: * LM -large caliber vessel no significant disease * LAD -moderate caliber vessel, proximal mid luminal irregularities, mild distal diffuse disease and extends to apex * Circumflex -moderate caliber vessel, luminal irregularities, 30-40% proximal OM 2 * RCA -dominant, 100% proximal RCA occlusion Cardiac arrest in ED with CPR/ALCS that was refractory to multiple shocks and epi. Received a total of 15 shocks. On Epi, Norepi, Amio drips echocardio performed at bedside in cardiac cardiac cath tech Heparin and Ticagrelor was started in ED. Resp Intubated in ED with mechanical ventilation PEEP 10, FiO2 80% 749 peep dropped to 5 Renal/lytes Lytes ordered at bedside Endo: No known history of DM or thyorid dz GI No active concerns No active concerns Heme No obvious source of bleeding outside of iatrogenic surgical access sites ID No current concerns Lines: 14 Fr right common femoral artery, 6 Fr right common femoral vein, 6 Fr left common femoral artery, 7 Fr left common femoral vein Catheters: JR4 guide, diagnostic JL4 (2) STEMI (ST elevation myocardial infarction): Supervising Physician Co-Signing Physician Notes Dr. Ashton was resident physician during care of patient. I separately evaluated patient for mckeon portions of the history and the exam. I was present during the critical portion of medical decision making, and I discussed the case with the resident. I generally agree with the findings and plan. Patient critically ill due to acute ST elevation PA with subsequent ventricular fibrillation, respiratory failure. I arrived at the cardiac Hospital Supervisor at 0700 and managed the ventilator and vasoactive medication until 0745 Patient is being transferred to [facility]. We have initiated cooling procedures with ice in the axilla groin and neck area. He had an extended episode of ventricular fibrillation of at least 30 minutes to approximately 60 minutes, he likely will require continuous EEG monitoring for concern of status epilepticus secondary to anoxic brain injury. History of Present Illness Reason for Consultation: Cardiac Arrest History of Present Illness Mr. Kwaku Santiago is a 43 y/o male who presented to [facility] ED with complaints of chest pain. According to ER report, patient woke up around 4am with sudden onset of chest pain that radiated to left arm. Patient arrived to [facility] ED by EMS. ASA received en route. Chest pain was described as severe according to report. He is a current smoker. But had no cardiac history or family history. An ECG showed stemi consistent with inferior infarct. He was given NTG in ED. Then had cardiac arrest with v. fib at approximately 0519. CPR/ALCS was started and received defibrillation x2. He was given IV heparin and Ticagrelor 180mg in ED. He was taken to cardiac cardiac cath tech for PCI with 100% occlusion. VF refractory to multiple shocks and rounds of epinephrine. Stent was placed to RCA which then patient developed perfusing wide-complex rhythm and CPR stopped. He was then placed on epinephrine, nor epi drips. In total received 15 shock. Maintained adequate maps with Impella support and pressors weaned off. Allergies Allergy/AdvReac Type Severity Reaction Status Date / Time bee venom protein (honey bee) Allergy Unknown SWELLING Unverified 03/24/19 05:21 Home Medications Home Medications Medication Instructions Recorded Confirmed Type buspirone 10 mg tablet 10 mg PO Q12H 30 Days #60 tab 01/31/19 03/24/19 Rx Patient History Medical History No pertinent past medical history No significant past surgical history No chronic diseases present Family History Other Family history non-contributory Social History Preferred Language: Cypriot Feels Safe at Home: Yes Smoking Status: Current every day smoker Review of Systems Review of Systems: Unobtainable due to endotracheal tube Physical Exam Constitutional: + mechanically ventilated Eyes: + eyelid abnormality (edema bilaterally) Neck: trachea midline Respiratory: mechanical ventilation Cardiovascular: Rate/Rhythm: + tachycardic Extremities: + vascular access device Musculoskeletal: Head/Neck/Chest: normocephalic and head atraumatic Extremities: extremities normal to inspection Skin: no rashes, warm and dry Neurologic: + not awake unable to assess Psychiatric: unable to assess Results & Data Vital Signs (Past 12 Hours) Vital Signs Temp Pulse Resp BP BP Pulse Ox 03/24/19 06:57 24 03/24/19 05:46 121 H 22 95/69 L 100 03/24/19 05:01 36.5 C 20 175/119 H 95 Laboratory Results Laboratory Results - last 24 hr 03/24/19 03/24/19 03/24/19 05:05 05:05 05:34 WBC 9.72 RBC 5.71 Hgb 17.1 POC Hgb 19.7 H Hct 47.8 POC Hct 58 H MCV 83.7 MCH 29.9 MCHC 35.8 RDW Std Deviation 41.8 RDW Coeff of Mynor 13.7 Plt Count 200 MPV 9.5 Immature Gran % (Auto) 0.4 Neut % (Auto) 51.6 Lymph % (Auto) 36.4 [place] % (Auto) 7.7 Eos % (Auto) 3.1 Baso % (Auto) 0.8 Immature Gran # (Auto) 0.04 H Neut # (Auto) 5.01 Lymph # (Auto) 3.54 H [place] # (Auto) 0.75 H Eos # (Auto) 0.30 Baso # (Auto) 0.08 PT INR APTT PTT Ratio Activ Coag Time Kaolin POC pH POC pCO2 POC pO2 POC HCO3 POC Base Excess POC ABG O2 Sat POC Sodium 139 Sodium 137 POC Potassium 3.1 L Potassium 4.4 POC Chloride 103 Chloride 103 Carbon Dioxide 25 POC Total CO2 14 L Anion Gap 9.0 POC Anion Gap 25.0 POC BUN 9 BUN 8 Creatinine 1.07 POC Creatinine 1.1 Est Cr Clr Drug Dosing 117.7 Est GFR ( Amer) 96.7 Est GFR (Non-Af Amer) 83.4 BUN/Creatinine Ratio 7.6 L Glucose 152 H POC Glucose (other) 166 H Calcium 8.8 POC Ioniz Calcium Nino 1.07 L Magnesium 1.9 Total Bilirubin 0.5 AST 20 ALT 28 Alkaline Phosphatase 143 H Total Creatine Kinase 178 CK-MB (CK-2) 3.2 CK/CKMB % Calc 1.8 POC Troponin I Troponin I 0.019 Total Protein 7.2 Albumin 4.1 Globulin 3.1 Albumin/Globulin Ratio 1.3 Lipase 196 TSH 3.220 Specimen Hemolysis 03/24/19 03/24/19 03/24/19 05:36 05:40 06:17 WBC RBC Hgb POC Hgb Hct POC Hct MCV MCH MCHC RDW Std Deviation RDW Coeff of Mynor Plt Count MPV Immature Gran % (Auto) Neut % (Auto) Lymph % (Auto) [place] % (Auto) Eos % (Auto) Baso % (Auto) Immature Gran # (Auto) Neut # (Auto) Lymph # (Auto) [place] # (Auto) Eos # (Auto) Baso # (Auto) PT 10.6 INR 1.0 APTT 27.5 PTT Ratio 1.0 Activ Coag Time Kaolin 191 H POC pH POC pCO2 POC pO2 POC HCO3 POC Base Excess POC ABG O2 Sat POC Sodium Sodium POC Potassium Potassium POC Chloride Chloride Carbon Dioxide POC Total CO2 Anion Gap POC Anion Gap POC BUN BUN Creatinine POC Creatinine Est Cr Clr Drug Dosing Est GFR ( Amer) Est GFR (Non-Af Amer) BUN/Creatinine Ratio Glucose POC Glucose (other) Calcium POC Ioniz Calcium Nino Magnesium Total Bilirubin AST ALT Alkaline Phosphatase Total Creatine Kinase CK-MB (CK-2) CK/CKMB % Calc POC Troponin I < 0.03 Troponin I Total Protein Albumin Globulin Albumin/Globulin Ratio Lipase TSH Specimen Hemolysis 03/24/19 03/24/19 03/24/19 06:48 07:03 07:43 WBC RBC Hgb POC Hgb Hct POC Hct MCV MCH MCHC RDW Std Deviation RDW Coeff of Mynor Plt Count MPV Immature Gran % (Auto) Neut % (Auto) Lymph % (Auto) [place] % (Auto) Eos % (Auto) Baso % (Auto) Immature Gran # (Auto) Neut # (Auto) Lymph # (Auto) [place] # (Auto) Eos # (Auto) Baso # (Auto) PT INR APTT PTT Ratio Activ Coag Time Kaolin 307 H POC pH 7.05 L* 7.08 L* POC pCO2 66 H 68 H POC pO2 114 H 51 L POC HCO3 18 L 20 POC Base Excess -12.0 L -10.0 L POC ABG O2 Sat 96.0 H 70.0 L POC Sodium Sodium POC Potassium Potassium POC Chloride Chloride Carbon Dioxide POC Total CO2 20 L 22 L Anion Gap POC Anion Gap POC BUN BUN Creatinine POC Creatinine Est Cr Clr Drug Dosing Est GFR ( Amer) Est GFR (Non-Af Amer) BUN/Creatinine Ratio Glucose POC Glucose (other) Calcium POC Ioniz Calcium Nino Magnesium Total Bilirubin AST ALT Alkaline Phosphatase Total Creatine Kinase CK-MB (CK-2) CK/CKMB % Calc POC Troponin I Troponin I Total Protein Albumin Globulin Albumin/Globulin Ratio Lipase TSH Specimen Hemolysis 03/24/19 03/24/19 08:26 08:31 WBC RBC Hgb POC Hgb 16.3 Hct POC Hct 48 MCV MCH MCHC RDW Std Deviation RDW Coeff of Mynor Plt Count MPV Immature Gran % (Auto) Neut % (Auto) Lymph % (Auto) [place] % (Auto) Eos % (Auto) Baso % (Auto) Immature Gran # (Auto) Neut # (Auto) Lymph # (Auto) [place] # (Auto) Eos # (Auto) Baso # (Auto) PT INR APTT PTT Ratio Activ Coag Time Kaolin POC pH 7.25 L POC pCO2 52 H POC pO2 64 L POC HCO3 23 POC Base Excess -4.0 POC ABG O2 Sat 88.0 L POC Sodium 140 Sodium POC Potassium 3.5 Potassium POC Chloride 99 L Chloride Carbon Dioxide POC Total CO2 24 22 L Anion Gap POC Anion Gap 24.0 POC BUN 8 BUN Creatinine POC Creatinine 1.1 Est Cr Clr Drug Dosing Est GFR ( Amer) Est GFR (Non-Af Amer) BUN/Creatinine Ratio Glucose POC Glucose (other) 439 H* Calcium POC Ioniz Calcium Nino 1.04 L Magnesium Total Bilirubin AST ALT Alkaline Phosphatase Total Creatine Kinase CK-MB (CK-2) CK/CKMB % Calc POC Troponin I Troponin I Total Protein Albumin Globulin Albumin/Globulin Ratio Lipase TSH Specimen Hemolysis PG Care Time/CCT Total # of Minutes Spent Total Time Spent with Patient: Total time spent is greater than 50% in production cook rdination of care (as documented) at patient's floor/unit and/or counseling patient: Critical Care Time: Yes Total Critical Care Time: 45 Resident Activity Tracking Resident Involvement: Resident Care Provided Care Provided: Adult Hospital Medicine (ICU) (1) STEMI (ST elevation myocardial infarction) Involved coronary artery: unspecified coronary artery Qualified Code(s): I21.3 - ST elevation (STEMI) myocardial infarction of unspecified site
--- NOTE | 2019-03-24 07:36 | Cardiac Catheterization ---
[facility] Data: Physician Relations Representative Cardiac Status Clinical evaluation leading to the procedure CAD Presenation: STEMI Anginal Classification: CCS IV Heart Failure: No Cardiogenic Shock within 24 Hours: Yes Cardiac Arrest within 24 Hours: Yes Diagnostic Physicians Name: Jack Horn MD Status: Emergency Closure Device Percutaneous Entry Location: Radial Closure Device: Radial Band Recommendations: None PCI Indication: Immediate PCI for STEMI First Noted: First EKG Reason For Delay in PCI:: Difficult vascular access Lesion Segment Name: proximal RCA Culprit Artery: Yes Stenosis Prior to Rx (%): 100 Pre-Procedure CHARLA Flow: 0 Previously Treated Lesion: No Lesion Complexity: Non-High/Non-C Lesion Length (mm): 15 Thrombus Present: Yes Bifurcation Lesion: No Guidewire Across Lesion: Stenosis Post-Procedure (%): 0 Post-Procedure CHARLA Flow: 3 Devices(s) Deployed: Yes Yes Intraprocedure Events Significant Disection: No Perforation: No
[2019-03-24] MEDS ORDERED: TICAGRELOR 90 MG TAB PO ONE (07:59)
[2019-03-24] MEDS ORDERED: HEPARIN 25000 UNIT/500 ML D5W IV ONE (08:02)
--- NOTE | 2019-03-24 08:25 | Cardiac Catheterization ---
ACC Data: Director Translational Cardiac Status Clinical evaluation leading to the procedure Diagnostic Physicians Name: Jack Horn MD Closure Device Recommendations: None
--- NOTE | 2019-03-24 08:27 | Post Operative Brief Note ---
Cardiology Brief Post Op Date of Surgery March 24, 2019 Pre & Post Diagnosis Operation Date: 03/24/19 17:25 <No data on this case meets the specified criteria> Procedure -- Log Snaker Jack Horn MD Product Safety Technical Assistant Deshaun Estimated Blood Loss 30 Findings Consistent with Post-Op Diagnosis Indication: STEMI/Heart Alert Access: 14 Fr right common femoral artery, 6 Fr right common femoral vein, 6 Fr left common femoral artery, 7 Fr left common femoral vein Catheters: JR4 guide, diagnostic JL4 Findings: LM -large caliber vessel no significant disease LAD -moderate caliber vessel, proximal mid luminal irregularities, mild distal diffuse disease and extends to apex Circumflex -moderate caliber vessel, luminal irregularities, 30-40% proximal OM 2 RCA -dominant, 100% proximal RCA occlusion Hospital course Patient brought to ED via EMS with inferior ST elevations on EKG in route Endorsed 7-10 chest pain on arrival prior to VF arrest requiring defibrillation x2 with ROSC. Patient intubated in ED. Upon arrival to Truck Trailer Mechanic patient had VF arrest. CPR begun, VF refractory to multiple shocks and rounds of epinephrine. Right common femoral artery access under ultrasound guidance with confirmation of suitable iliac for Impella Impella placed and started P8. Cardiac arrest continued with ongoing compressions, Holger device Left common femoral artery access obtained and RCA accessed with JR4 guide Occluded proximal RCA crossed with BMW wire Proximal RCA dilated with 2.5 balloon with reestablished flow RCA stented with 3.0 x 22 mm [place] drug-eluting stent With reestablish flow developed perfusing wide-complex rhythm and CPR stopped Patient placed on epinephrine, nor epi drips In total received 15 shocks Post procedure maintaining adequate maps with Impella support and pressors weaned off 6 Fr left JACQUARD TWINE POLISHER OPERATOR sheath kinked and removed. Radial artery catheter placed for monitoring. Sheath sutured in place Ticagrelor administered Summary: 1. Inferior STEMI STEMI/Occluded proximal RCA 2. Cardiac arrest, cardiogenic shock 3. Successful PCI of proximal RCA with single drug-eluting stent (3.0 x 22 Donnie) Recommendations: Transfer to [facility] for continued hemodynamic support
[2019-03-24] MEDS ORDERED: EPINEPHrine 4 MG in DEXTROSE 5% BRADYCARDIA IV SCH (08:45)
[2019-03-24] MEDS ORDERED: SODIUM BICARB 8.4% INJ 50 MEQ/50 ML SYR ONE (08:48)
[2019-03-24 09:05] LABS: iSTAT Arterial Blood Gas HCO3 18 meg/L (19-24); iSTAT Arterial Blood Gas pCO2 66 mmHg (35-46); iSTAT Arterial Blood Gas pH 7.05 (7.35-7.45); iSTAT Carbon Dioxide 20 mEq/l (24-31)
[2019-03-24 09:05] LABS: iSTAT Arterial Blood Gas HCO3 23 meg/L (19-24); iSTAT Arterial Blood Gas pCO2 52 mmHg (35-46); iSTAT Arterial Blood Gas pH 7.25 (7.35-7.45); iSTAT Carbon Dioxide 24 mEq/l (24-31)
[2019-03-24 09:05] LABS: iSTAT Creatinine 1.1 mg/dl (0.6-1.3); iSTAT Hemoglobin 16.3 g/dl (14.0-18.0); iSTAT Ionized Calcium 1.04 mmol/l (1.12-1.32); iSTAT Potassium 3.5 mEq/L (3.3-5.0)
[2019-03-24 09:05] LABS: iSTAT Arterial Blood Gas HCO3 20 meg/L (19-24); iSTAT Arterial Blood Gas pCO2 68 mmHg (35-46); iSTAT Arterial Blood Gas pH 7.08 (7.35-7.45); iSTAT Carbon Dioxide 22 mEq/l (24-31)
--- NOTE | 2019-03-24 11:35 | Cardiac Catheterization ---
[facility] Data: Gre Instructor Cardiac Status Clinical evaluation leading to the procedure CAD Presenation: STEMI Anginal Classification: CCS IV Heart Failure: NYHA Class: CCS II Cardiogenic Shock within 24 Hours: Yes Cardiac Arrest within 24 Hours: Yes Imaging Studies Past 6 Months: No Stress Studies Past 6 Months: No Diagnostic Physicians Name: Jack Horn MD Status: Emergency Closure Device Percutaneous Entry Location: Femoral Recommendations: None PCI Indication: Immediate PCI for STEMI First Noted: First EKG Reason For Delay in PCI:: Difficult vascular access Lesion Segment Name: proximal RCA Culprit Artery: Yes Stenosis Prior to Rx (%): 100 Chronic Total Occlusion: No IVUS: No FFR: No Pre-Procedure CHARLA Flow: 0 Previously Treated Lesion: No Lesion Complexity: Non-High/Non-C Lesion Length (mm): 12 Thrombus Present: Yes Bifurcation Lesion: No Guidewire Across Lesion: Stenosis Post-Procedure (%): 0 Post-Procedure CHARLA Flow: 3 Devices(s) Deployed: Yes Yes Intraprocedure Events Significant Disection: No Perforation: No Cardiac Cath Procedure Full Procedure Date March 24, 2019 Pre-Procedure Diagnosis Pre-Procedure Diagnosis: STEMI AUC Score AUC Score: 9 Post-Procedure Diagnosis Post-Procedure Diagnosis: Severe CAD, Successful PCI, Decreased LV Systolic Function and Normal Intracardiac Pressures Procedure(s) Performed Procedure(s) Performed: Coronary Angiography, Left Heart Cath, Right Heart Cath, Drug Eluting Stent, Temporary Pacemaker, Ultrasound Guided Vascular Access, CPR, Defibrillation, Femoral Artery Angiography and Procedure (Impella) Title Vehicle Service Attendant Jack Horn MD Aligner Barrel And Receiver(s) eDshaun Estimated Blood Loss Estimated Blood Loss: 25 Medication(s) Medication(s): Epinephrine, Fentanyl, Heparin, Lidocaine 1% and Norepinephrine Medication(s): Ticagrelor Summary of Findings Indication: STEMI/Heart Alert Access: 14 Fr right common femoral artery (impella), 6 Fr right common femoral vein (transvenous pacer), 6 Fr left common femoral artery (PCI), 7 Fr left common femoral vein (swan). Catheters: JR4 guide, diagnostic JL4 Findings: LM -large caliber vessel no significant disease LAD -moderate caliber vessel, proximal mid luminal irregularities, mild distal diffuse disease and extends to apex Circumflex -moderate caliber vessel, luminal irregularities, 30-40% proximal OM 2 RCA -dominant, 100% proximal RCA occlusion Hospital course Patient brought to ED via EMS with inferior ST elevations on EKG in route Endorsed 7/10 chest pain on arrival before VF arrest in ED requiring defibrillation x2 with ROSC. Patient intubated in ED. Upon arrival to Gre Instructor patient had VF arrest. CPR begun, VF refractory to multiple shocks and rounds of epinephrine. Right common femoral artery access under ultrasound guidance with confirmation of suitable iliac for Impella Impella placed and started P8. Cardiac arrest continued with ongoing CPR and eventual Holger device Left common femoral artery access obtained under ultrasound guidance and RCA accessed with JR4 guide Occluded proximal RCA crossed with BMW wire Proximal RCA dilated with 2.5 balloon with reestablished flow. In total received 15 shocks before ROSC RCA stented with 3.0 x 22 mm [place] drug-eluting stent With reestablished flow developed slow, perfusing wide-complex rhythm and CPR stopped. Transvenous pacemaker placed via R CFV Patient placed on epinephrine, nor epi drips JL4 used to cannulate LM. No significant left system disease with CHARLA 3 flow throughout. [place] placed via 7Fr sheath in LT CFV PA 30/20(29); PCW 18; PaSat 72% Post procedure maintaining adequate maps with Impella support and pressors weaned off 6 Fr left DEPUTY BUILDING GUARD sheath kinked and removed. RT Radial artery catheter placed for monitoring. Sheaths sutured in place Ticagrelor administered Summary: 1. Inferior STEMI STEMI/Occluded proximal RCA 2. VF Cardiac arrest 3. Cardiogenic shock 4. Successful PCI of proximal RCA with single drug-eluting stent (3.0 x 22 Donnie) 5. Successful Impella CP mechanical support catheter placement Recommendations: Transfer to [facility] for continued hemodynamic support Hemodynamics Rest Ao:: Final Ao: 110/78 LV: -- Recommendations Recommendations: None Specimens Specimens: None Radiation Exposure (mGy) 2369 Contrast (mls) 60 Fluids (cc crystalloids) Fluids (cc crystalloids): 1800 Drains Drains: none Anesthesia moderate Procedural Complication(s) None Disposition To [facility] via [facility]
--- NOTE | 2019-03-24 11:53 | Discharge Summary ---
Date of Service March 24, 2019 Discharge Data Consultations 03/24/19 06:41 ED Decision to Admit Stat Procedures Performed Operation Date: 03/24/19 17:25 Actual Procedures p Aspiration/PCI w/ANA for Stemi - MD migdalia Mg Impella Insertion - MD migdalia Mg Cardiopulmonary Resuscitation(Not Applicable) - MD migdalia Mg Ultrasound Vascular Access - MD migdalia Mg Insert/Replace Temorary Pacemaker - MD migdalia Mg Cath, Right Heart with Cors - Preston Horn MD Hospital Course (1) STEMI (ST elevation myocardial infarction): Patient brought to ED via EMS with inferior ST elevations on EKG in route Endorsed 7/10 chest pain on arrival before VF arrest in ED requiring defibrillation x2 with ROSC. Patient intubated in ED. Upon arrival to Java Tech patient had VF arrest. CPR begun, VF refractory to multiple shocks and rounds of epinephrine. Right common femoral artery access under ultrasound guidance with confirmation of suitable iliac for Impella Impella placed and started P8. Cardiac arrest continued with ongoing CPR and eventual Holger device Left common femoral artery access obtained under ultrasound guidance and RCA accessed with JR4 guide Occluded proximal RCA crossed with BMW wire Proximal RCA dilated with 2.5 balloon with reestablished flow. In total received 15 shocks before ROSC RCA stented with 3.0 x 22 mm Donnie drug-eluting stent With reestablished flow developed slow, perfusing wide-complex rhythm and CPR stopped. Transvenous pacemaker placed via R CFV Patient placed on epinephrine, norepinephrine JL4 used to cannulate LM. No significant left system disease with CHARLA 3 flow throughout. [place] placed via 7Fr sheath in LT CFV PA 30/20(29); PCW 18; PaSat 72% Post procedure maintaining adequate maps with Impella support and pressors weaned off [address] REPORTER sheath kinked and removed. RT Radial artery catheter placed for monitoring. Sheaths sutured in place [facility].
[2019-03-27 06:51] LABS: iSTAT Arterial Blood Gas HCO3 13 meg/L (19-24); iSTAT Arterial Blood Gas pCO2 74 mmHg (35-46); iSTAT Arterial Blood Gas pH 6.85 (7.35-7.45); iSTAT Carbon Dioxide 15 mEq/l (24-31)
[2019-03-27 06:52] LABS: iSTAT Arterial Blood Gas HCO3 20 meg/L (19-24); iSTAT Arterial Blood Gas pCO2 74 mmHg (35-46); iSTAT Arterial Blood Gas pH 7.03 (7.35-7.45); iSTAT Carbon Dioxide 22 mEq/l (24-31)
[2019-03-27 06:52] LABS: iSTAT Creatinine 1.2 mg/dl (0.6-1.3); iSTAT Hemoglobin 15.3 g/dl (14.0-18.0); iSTAT Ionized Calcium 1.11 mmol/l (1.12-1.32); iSTAT Potassium 3.7 mEq/L (3.3-5.0)
== END 2019-03-24 08:50 | disposition short-term general hospital (02) | DRG 215 ==
LOC: ED 05:14 → 1E 07:10
PROC: CLB.CPR (2019-03-24 17:25)

== ENCOUNTER 2024-10-27 10:33 | Inpatient (IN) ==
--- NOTE | 2024-10-27 11:33 | Emergency Department Note ---
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 Patient states that he has been having intermittent episodes over the past 2 to 3 weeks time. Patient states that it was in his lower extremities. Patient states now over the past 2 to 3 days that has been constant just above his bellybutton down throughout both legs bilaterally. Patient states it feels like someone injected Novocain into his skin. Patient denies any recent illnesses in the past month's time. Patient denies any trauma. Patient denies any current headache or back pain. Patient seen by primary care physician 2 to 3 days prior had screening blood work and was referred to neurology but patient has not been able to see them yet. PAST MEDICAL HISTORY: See Below PAST SURGICAL HISTORY: See Below SOCIAL HISTORY: See Below HOME MEDICATIONS: See Below ALLERGIES: See Below VITALS: See Below PHYSICAL EXAMINATION: GENERAL: Well appearing, well nourished, NAD, non-toxic. EYE EXAM: Normal conjunctiva. OROPHARYNX: Moist mucus membranes. Grossly normal dentition. NECK: Supple, LUNGS: Clear to auscultation. Normal chest wall mechanics. HEART: NSR ABDOMEN: Abdomen soft, non-tender, normo-active bowel sounds, no masses, no rebound or guarding BACK: No tenderness of cervical thoracic or lumbar spine SKIN: No rashes and no bruising. UPPER EXTREMITIES: Upper extremities are grossly normal LOWER EXTREMITIES: Grossly normal, no edema. NEURO EXAM: A&O x3,, patient cranial nerves II through XII intact, patient has 5 out of 5 muscle strength of the upper extremities with intact sensation in the upper extremities bilaterally, patient about 4 to 5 cm above the umbilicus down to the lower extremities has numbness present with decreased sensation but no decrease in muscle strength. Patient claims he feels like his legs are heavier than usual. PSYCH: Cooperative MEDICAL DECISION MAKING: History obtained from: Patient ER Course: Patient is a 48-year-old male presenting with complaint of numbness from upper abdomen down both legs. Patient states the symptoms were intermittent for the past 2 to 3 weeks time. Patient states over the past 2 to 3 days time they have become constant. Approximately 5 cm above his umbilicus is where numbness starts. Patient denies any recent trauma. Patient denies any back pain. Patient denies any rashes or fevers. Patient states over the past 2 to 3 weeks time he has been having shortness of breath or chest pain with exertion. Patient does have a history of a prior [place]. Patient's EKG shows left bundle branch block today. Patient has elevated troponin. Patient has no active chest pain on exam. Patient had CT scan of the head which is negative for intracranial hemorrhage or mass. Patient had MRIs of cervical and thoracic spine. Patient's MRI cervical spine clear. Patient's MRI thoracic spine shows lipamatosis at T7 with mild to moderate central canal stenosis. After discussion with on-call spine patient ordered IV Decadron. Patient admitted to hospital service for further treatment and evaluation. Labs (independently interpreted) are significant for: elevated troponin x'2, МАРИНА Imaging results (independently interpreted): Chest x-ray without pneumonia EKG interpretation (independently interpreted): Normal sinus rhythm left bundle branch block no ST segment elevation Medications given: Normal saline bolus Consultants: [facility] neurology team, discussed patient's presentation and upon arrival in the emergency room to get guidance on further workup. Recommended MRI with and without contrast of the thoracic spine. If normal could be discharged home with follow-up outpatient if abnormal admission to hospital Dr. Felipe of spine, discussed patient's MRI of thoracic spine with T7 abnormality. Recommends giving IV Decadron and will see patient in consult. Discussion with hospitalist service who agreed to accept the patient to their service further treatment and evaluation Triage Nursing notes reviewed and agree them. Vital Signs: reviewed and remarkable for: no significant abnormalities Past Med/Surg History Problem List (Updated 10/27/24 @ 17:53 by Camden Marin DO) Abnormal MRI, thoracic spine (Acute) Numbness (Acute) МАРИНА (acute kidney injury) (Acute) Elevated troponin (Acute) Elevated troponin Acute kidney injury Bilateral leg weakness Bilateral leg paresthesia Bilateral leg numbness Current use of proton pump inhibitor Bloating Gastric ulcer Esophageal dysphagia Nocturia Urinary frequency History of colon polyps Obesity Abnormal finding on lung imaging Hypersomnia Marijuana use Exertional shortness of breath COPD with emphysema Ex-smoker Screening for colon cancer Anxiety Elevated LFTs Type 2 diabetes mellitus Abscess of right thigh Back pain (Acute) Back pain (Acute) S/P right coronary artery (RCA) stent placement (Acute) [facility] 1 STENT 03/24/2019 CAD (coronary atherosclerotic disease) (Acute) follows with Dr. Pandey Medical History Gastric ulcer Acid reflux Anxiety History of COVID-19 08/2021 > resolved Diabetes mellitus, type 2 Seizure hx as child, none since age 8 Chronic obstructive pulmonary disease no recent use of inhaler, controlled Cerebral hemorrhage HX-03/2019 CAD (coronary atherosclerotic disease) follows with Dr. Pandey STEMI (ST elevation myocardial infarction) 2019 Surgical History History of colonoscopy History of esophagogastroduodenoscopy (EGD) S/P vasectomy H/O oral surgery Family History Mother Brain cancer Other Family history non-contributory Denies family history of Prostate cancer Colorectal cancer Social History Smoking Status: Current every day smoker Tobacco Type: E-cigarettes / Vaping Second Hand Exposure: No; Do You Dip or Chew Tobacco: No; Hx Alcohol Use: No Hx Substance Use: Yes Last Used Substance Other:: 10/13/2023 Substance Use Type Other:: medical card >2x per week approx Preferred Language: Estonian Communication Ability: Effective Visual Impairment: No Limitations Hearing Ability: Normal Trimming Inspector Required: No Beliefs That Will Affect Care: None marital status: Current Living Situation: Spouse current occupational status: employed current occupation: Nurse [employer] Feels Safe at Home: Yes Assistive Devices: CPAP, Denture - Upper and Glasses Allergies Allergies Allergy/AdvReac Type Severity Reaction Status Date / Time bee venom protein (honey bee) Allergy Intermediate SWELLING Verified 10/23/24 15:41 Home Meds Home Medications Medication Instructions Recorded Confirmed aspirin 81 mg chewable tablet 81 mg PO QAM 05/24/19 10/27/24 tamsulosin 0.4 mg capsule 0.4 mg PO HS 10/13/23 10/27/24 Medical Marijuana 1 dose PO DIRECTED PRN Anxiety 12/06/23 10/27/24 omeprazole 20 mg tablet,delayed 20 mg PO DAILY 10/27/24 10/27/24 release Previous Rx's Medication Instructions Recorded semaglutide 0.25 mg or 0.5 mg (2 0.5 mg (0.736 mL) subcut WK #3 mL 12/29/23 mg/3 mL) subcutaneous pen injector (Ozempic) metoclopramide HCl 5 mg tablet 5 mg PO TID #90 tabs 08/28/24 (Reglan) epinephrine 0.3 mg/0.3 mL 0.3 mg (0.3 mL) IM Q4H PRN 10/23/24 injection, auto-injector anaphylaxis #2 ea losartan 25 mg tablet 12.5 mg (1/2 x 25 mg) PO QAM #30 10/23/24 tabs metoprolol succinate 25 mg 12.5 mg (1/2 x 25 mg) PO HS #30 10/23/24 tablet,extended release 24 hr tabs Results & Data (ED) Vital Signs Vital Signs - 24 hr 10/27/24 10:38 10/27/24 11:22 10/27/24 11:22 Temperature 36.6 C Temperature Source Skin Pulse Rate 107 H Pulse Rate [Apical] 102 H Pulse Rhythm Pulse Rhythm [Apical] Regular Pulse Strength [Apical] Normal Respiratory Rate 20 18 Respiratory Effort / Characteristics Non-Labored Spontaneous Non-Labored Spontaneous Respiratory Depth Normal Normal Respiratory Pattern Regular Regular Blood Pressure 132/70 Blood Pressure [Right Arm] 116/44 L Blood Pressure Mean 90 Blood Pressure Mean [Right Arm] 68 Blood Pressure Position [Right Arm] Lying Pulse Oximetry 97 96 95 Oxygen Delivery Method Room Air Room Air Room Air Oxygen Flow Rate Sepsis Recent Fever Within 48 Hours No Sepsis New/Unexplained Change in Mental Status N/A Sepsis Action Taken by Nursing No Action Required 10/27/24 11:26 10/27/24 11:56 10/27/24 14:09 Temperature Temperature Source Pulse Rate 101 H 96 H Pulse Rate [Apical] 95 H Pulse Rhythm Pulse Rhythm [Apical] Regular Pulse Strength [Apical] Normal Respiratory Rate 20 24 Respiratory Effort / Characteristics Non-Labored Spontaneous Respiratory Depth Normal Respiratory Pattern Regular Blood Pressure Blood Pressure [Right Arm] 117/41 L Blood Pressure Mean Blood Pressure Mean [Right Arm] 66 Blood Pressure Position [Right Arm] Sitting Pulse Oximetry 95 91 Oxygen Delivery Method Room Air Room Air Oxygen Flow Rate Sepsis Recent Fever Within 48 Hours Sepsis New/Unexplained Change in Mental Status Sepsis Action Taken by Nursing 10/27/24 14:34 10/27/24 14:35 10/27/24 15:17 Temperature 36.8 C Temperature Source Oral Pulse Rate 93 H 93 H Pulse Rate [Apical] 93 H Pulse Rhythm Regular Pulse Rhythm [Apical] Regular Pulse Strength [Apical] Normal Respiratory Rate 30 H 32 H 23 Respiratory Effort / Characteristics Non-Labored Spontaneous Respiratory Depth Normal Respiratory Pattern Regular Blood Pressure Blood Pressure [Right Arm] 112/51 L Blood Pressure Mean Blood Pressure Mean [Right Arm] 71 Blood Pressure Position [Right Arm] Sitting Pulse Oximetry 88 L 94 97 Oxygen Delivery Method Room Air Nasal Cannula Nasal Cannula Oxygen Flow Rate 2 2 Sepsis Recent Fever Within 48 Hours Sepsis New/Unexplained Change in Mental Status Sepsis Action Taken by Nursing 10/27/24 15:55 10/27/24 17:00 Temperature Temperature Source Pulse Rate 93 H Pulse Rate [Apical] 89 Pulse Rhythm Pulse Rhythm [Apical] Regular Pulse Strength [Apical] Normal Respiratory Rate 18 Respiratory Effort / Characteristics Non-Labored Spontaneous Respiratory Depth Normal Respiratory Pattern Regular Blood Pressure Blood Pressure [Right Arm] 119/64 Blood Pressure Mean Blood Pressure Mean [Right Arm] 82 Blood Pressure Position [Right Arm] Lying Pulse Oximetry 93 Oxygen Delivery Method Room Air Oxygen Flow Rate Sepsis Recent Fever Within 48 Hours Sepsis New/Unexplained Change in Mental Status Sepsis Action Taken by Nursing Laboratory Data 10/27/24 10:56 10/27/24 10:56 Lab Results 10/27/24 10/27/24 10/27/24 Range/Units 10:56 14:13 16:45 WBC 9.51 (4.8-10.8) K/ul RBC 4.64 L (4.70-6.10) M/uL Hgb 13.5 L (14.0-18.0) g/dl Hct 40.3 L (42.0-52.0) % MCV 86.9 (80.0-100.0) fL MCH 29.1 (25.0-34.0) pg MCHC 33.5 (32.0-36.0) g/dL RDW Std Deviation 42.5 (36.4-46.3) fL RDW Coeff of Mynor 13.5 (11.5-14.5) % Plt Count 269 (130-400) K/uL MPV 9.1 L (9.4-12.4) fL Immature Gran % (Auto) 0.4 % Neut % (Auto) 75.8 % Lymph % (Auto) 13.9 % [place] % (Auto) 7.9 % Eos % (Auto) 1.3 % Baso % (Auto) 0.7 % Neut # (Auto) 7.21 H (1.40-6.50) K/uL Lymph # (Auto) 1.32 (1.20-3.40) K/uL [place] # (Auto) 0.75 H (0.11-0.59) K/uL Eos # (Auto) 0.12 (0.00-0.50) K/uL Baso # (Auto) 0.07 (0.00-0.20) K/uL Immature Gran # (Auto) 0.04 (0.01-0.20) K/uL ESR 14 (0-20) mm/hr Sodium 133 L (136-145) mmol/L Potassium 4.2 (3.5-5.1) mmol/L Chloride 102 (98-107) mmol/L Carbon Dioxide 17 L (21-32) mmol/L Anion Gap 14 H (3-11) BUN 13 (6-23) mg/dl Creatinine 1.48 H (0.6-1.4) mg/dl Est Cr Clr Drug Dosing 74.9 ml/min eGFR 57.28 BUN/Creatinine Ratio 8.8 L (10-20) Glucose 151 H (70-99(Fasting)) mg/dl Calcium 10.1 (8.6-10.3) mg/dl Total Bilirubin 0.8 (0.2-1.0) mg/dl AST 43 H (13-39) U/L ALT 32 (7-52) U/L Alkaline Phosphatase 68 (34-104) U/L Troponin I High Sens 38.9 H 67.6 H* D (0-20) pg/ml C-Reactive Protein 0.62 H (0-0.5) mg/dl Total Protein 7.6 (6.0-8.3) gm/dl Albumin 4.6 (3.4-5.0) gm/dl Globulin 3.0 (2.5-4.0) gm/dl Albumin/Globulin Ratio 1.5 (0.9-2) Vitamin B12 290 (180-914) pg/ml Folate 4.51 L (>5.38) ng/ml TSH 1.942 (0.300-4.500) uIu/ml Urine Color Yellow Urine Appearance Clear (Clear) Urine pH 5.0 (4.5-7.5) Ur Specific [place] 1.025 (1.000-1.030) Urine Protein Negative (Negative) Urine Glucose (UA) Negative (Negative) Urine Ketones Negative (Negative) Urine Blood Negative (Negative) Urine Nitrite Negative (Negative) Urine Bilirubin Negative (Negative) Urine Urobilinogen Negative (Negative) Ur Leukocyte Esterase Negative (Negative) Administered Medications Discontinued Medications Dexamethasone (Dexamethasone Sod Inj 4 Mg/Ml Vial) 10 mg IV NOW STA Stop: 10/27/24 15:18 Last Admin: 10/27/24 15:26 Dose: 10 mg Documented By: CLAUDETTE Gadobutrol (Gadobutrol 30ml Vial) 11 ml IV ONCE ONE Stop: 10/27/24 14:11 Last Admin: 10/27/24 14:10 Dose: 11 ml Documented By: CLAYTON Imaging Data Radiologist's Impression: Chest X-Ray 10/27/24 11:26 XR chest 1V portable CLINICAL HISTORY: sob w/ exertion COMPARISON STUDY: 06/30/2023 FINDINGS: Stable mild cardiomegaly without pulmonary vascular congestion. There are faint reticular and patchy opacities at the left mid and lower lung. No other consolidation or pleural effusion. No pneumothorax. IMPRESSION: Faint opacities at the left lung could represent artifact or early pneumonia. ACT 112: Negative or not required by law. Electronically signed by: Kwaku Bailey M.D. 10/27/2024 11:49 AM Cervical Spine MRI 10/27/24 11:39 MR cervical spine wo/w con CLINICAL HISTORY: Numbness just above umbilicus down b/l LE's COMPARISON STUDY: Neck CT of 12/11/2018 FINDINGS: There is motion artifact. Spinal cord has normal signal and contour. No fracture or subluxation. No significant disc bulge seen. No significant central canal or neuroforaminal narrowing. No abnormal enhancement seen. IMPRESSION: Motion limited exam with no significant finding seen. ACT 112: Negative or not required by law. Electronically signed by: Kwaku Bailey M.D. 10/27/2024 2:[address] 10/27/24 11:39 CT OF THE HEAD WITHOUT CONTRAST CLINICAL HISTORY: numbness from just above umbilicus down COMPARISON STUDY: No previous studies for comparison. CT DOSE: 625.8 mGy.cm TECHNIQUE: Helical axial images of the head were obtained without IV contrast. Automated exposure control was utilized for the study. A dose lowering technique was utilized adhering to the principles of ALARA. FINDINGS: No acute intracranial hemorrhage, midline shift or mass effect is present. The ventricular system is unremarkable. The basal cisterns are patent. No extra-axial collections are present. There are no findings to suggest acute dural sinus thrombosis or acute territorial infarct. No significant calvarial abnormalities are present. Visualized portions of the sinuses and mastoid air cells are clear. IMPRESSION: No acute intracranial findings. ACT 112: Negative or not required by law. Electronically signed by: Gómez Moreno M.D. 10/27/2024 12:28 PM Thoracic Spine MRI 10/27/24 11:39 MR thoracic spine wo/w con HISTORY: 48 years-old Male Numbness from just above umbilicus down lower ext acute mid to low back pain. No reported trauma COMPARISON: MRI cervical spine of same day, CTA chest 03/27/2014 TECHNIQUE: Multiplanar multisequence MRI of the thoracic spine was obtained with and without IV contrast. FINDINGS: Mild to moderate spondylitic spurring of the mid to lower thoracic spine. Multilevel intervertebral disc space narrowing, moderate at T6-T7, T7-T8, T8-T9 and T9-T10. There is a subcentimeter T8 vertebral body hemangioma. No acute fracture, subluxation, endplate erosion or marrow replacing process. Normal signal within the thoracic spinal cord. Study is motion degraded which limits evaluation of the central canal and neural foramen. Posterior epidural lipomatosis, most pronounced in the mid thoracic spine. T7-T8: Posterior annular disc bulge. Right paracentral disc protrusion measures 10 x 3 mm on image 13 series 24. AP dimension of the thecal sac measures 7 mm. There is mild deformity upon the thoracic spinal cord resulting in mild to moderate central canal stenosis. No significant neural foraminal narrowing identified. T8-T9: Posterior epidural lipomatosis with post renal disc bulge. The central canal and left neural foramen are generally patent. Mild right foraminal narrowing. IMPRESSION: 1. Motion degraded exam without acute fracture, subluxation or bone marrow edema. 2. No abnormal enhancement. 3. Posterior epidural lipomatosis is most pronounced within the mid thoracic spine. 4. Disc protrusion at T7-T8 in conjunction with the epidural lipomatosis causes mild to moderate central canal stenosis. 5. Normal signal of the thoracic spinal cord. ACT 112: Negative or not required by law. The above report was generated using voice recognition software. It may contain grammatical, syntax or spelling errors. Electronically signed by: Brooks Meneses M.D. 10/27/2024 2:37 PM Discharge Plan Visit Data Chief Complaint: Neuro Symptoms/Deficit Stated Complaint: NUMBNESS IN LEGS, SOB WHEN WALKING ED Provider: Camden Marin Discharge Problem: Elevated troponin, МАРИНА (acute kidney injury), Numbness, Abnormal MRI, thoracic spine Forms Stand Alone Forms: My [facility] [employer] Prescriptions Prescriptions: No Action Ozempic 0.25 mg or 0.5 mg (2 mg/3 mL) pen injector 0.5 mg SUBCUT WK Qty: 3 3RF Patient Comments: takes on Fridays, last dose was 12/03/23 > pt not taking more till after dos Rx Instructions: FRIDAYS metoclopramide HCl [Reglan] 5 mg tablet 5 mg PO TID Qty: 90 2RF Hold Instructions: Home Medication placed on hold at Doctor's office aspirin 81 mg tablet,chewable 81 mg PO QAM metoprolol succinate 25 mg tablet extended release 24 hr 12.5 mg PO HS Qty: 30 1RF losartan 25 mg tablet 12.5 mg PO QAM Qty: 30 1RF epinephrine 0.3 mg/0.3 mL auto-injector 0.3 mg IM Q4H PRN (Reason: anaphylaxis) Qty: 2 0RF Medical Marijuana 1 dose PO DIRECTED PRN (Reason: Anxiety) omeprazole 20 mg Tablet,Delayed Release (Dr/Ec) 20 mg PO DAILY tamsulosin 0.4 mg capsule 0.4 mg PO HS Referrals Referrals: Pro,Santhosh Kelley MD [Primary Care Provider] -
[2024-10-27 11:45] LABS: Basophils # (auto) 0.07 K/uL (0.00-0.20); Basophils % (auto) 0.7 %; Eosinophils # (auto) 0.12 K/uL (0.00-0.50); Eosinophils % (auto) 1.3 %; Hematocrit (blood only) 40.3 % (42.0-52.0); Hemoglobin 13.5 g/dl (14.0-18.0); Immature Granulocytes # (auto) 0.04 K/uL (0.01-0.20); Immature Granulocytes % (auto) 0.4 %; Lymphocytes # (auto) 1.32 K/uL (1.20-3.40); Lymphocytes % (auto) 13.9 %; Mean Corpuscular Hemoglobin 29.1 pg (25.0-34.0); Mean Corpuscular Hgb Conc 33.5 g/dL (32.0-36.0); Mean Corpuscular Volume 86.9 fL (80.0-100.0); Mean Platelet Volume 9.1 fL (9.4-12.4); Monocytes # (auto) 0.75 K/uL (0.11-0.59); Monocytes % (auto) 7.9 %; Neutrophils # (auto) 7.21 K/uL (1.40-6.50); Neutrophils % (auto) 75.8 %; Platelet Count 269 K/uL (130-400); RDW Coefficient of Variation 13.5 % (11.5-14.5); RDW Standard Deviation 42.5 fL (36.4-46.3); Red Blood Count 4.64 M/uL (4.70-6.10); White Blood Count 9.51 K/ul (4.8-10.8)
--- NOTE | 2024-10-27 11:51 | XRay Report ---
XR chest 1V portable CLINICAL HISTORY: sob w/ exertion COMPARISON STUDY: 06/30/2023 FINDINGS: Stable mild cardiomegaly without pulmonary vascular congestion. There are faint reticular a nd patchy opacities at the left mid and lower lung. No other consolidation or pleural effusion. No pn eumothorax. IMPRESSION: Faint opacities at the left lung could represent artifact or early pneumonia. ACT 112: Negative or not required by law. Electronically signed by: Kwaku Bailey M.D. 10/27/2024 11:49 AM
[2024-10-27 11:58] LABS: Albumin Level 4.6 gm/dl (3.4-5.0); Bilirubin,Total 0.8 mg/dl (0.2-1.0); Calcium 10.1 mg/dl (8.6-10.3); Potassium 4.2 mmol/L (3.5-5.1)
[2024-10-27 12:04] LABS: Albumin Globulin Ratio 1.5 (0.9-2); BUN Creatinine Ratio 8.8 (10-20); Creatinine Clr Calc Pharmacy 74.9 ml/min; Total Protein 7.6 gm/dl (6.0-8.3)
[2024-10-27 12:07] LABS: Troponin I High Sensitivity 38.9 pg/ml (0-20)
[2024-10-27 12:16] LABS: Thyroid Stimulating Hormone 1.942 uIu/ml (0.300-4.500)
--- NOTE | 2024-10-27 12:24 | Electrocardiogram Report ---
Test Reason : Blood Pressure : */* mmHG Vent. Rate : 106 BPM Atrial Rate : 106 BPM P-R Int : 146 ms QRS Dur : 114 ms QT Int : 358 ms P-R-T Axes : 37 1 150 degrees QTcB Int : 475 ms Sinus tachycardia Left bundle branch block Abnormal ECG When compared with ECG of 13-Oct-2023 12:06, Vent. rate has increased by 41 bpm Confirmed by Isael Ferrell ([id number]) on 10/27/2024 12:24:15 PM Referred By: REFERRED SELF Confirmed By: Isael Ferrell
--- NOTE | 2024-10-27 12:29 | CT Scan Report ---
CT OF THE HEAD WITHOUT CONTRAST CLINICAL HISTORY: numbness from just above umbilicus down COMPARISON STUDY: No previous studies for comparison. CT DOSE: 625.8 mGy.cm TECHNIQUE: Helical axial images of the head were obtained without IV contrast. Automated exposure con trol was utilized for the study. A dose lowering technique was utilized adhering to the principles o f ALARA. FINDINGS: No acute intracranial hemorrhage, midline shift or mass effect is present. The ventricular system is unremarkable. The basal cisterns are patent. No extra-axial collections are present. There are no findings to suggest acute dural sinus thrombosis or acute territorial infarct. No significant calvarial abnormalities are present. Visualized portions of the sinuses and mastoid air cells are [place] ar. IMPRESSION: No acute intracranial findings. ACT 112: Negative or not required by law. Electronically signed by: Gómez Moreno M.D. 10/27/2024 12:28 PM
[2024-10-27 12:31] LABS: C Reactive Protein 0.62 mg/dl (0-0.5)
[2024-10-27 12:41] LABS: Folate (Folic Acid),Ser orPlas 4.51 ng/ml (>5.38)
[2024-10-27] MEDS: GADOBUTROL 30ML VIAL IV ONE (14:10)
--- NOTE | 2024-10-27 14:27 | Magnetic Resonance Report ---
MR cervical spine wo/w con CLINICAL HISTORY: Numbness just above umbilicus down b/l LE's COMPARISON STUDY: Neck CT of 12/11/2018 FINDINGS: There is motion artifact. Spinal cord has normal signal and contour. No fracture or subluxa tion. No significant disc bulge seen. No significant central canal or neuroforaminal narrowing. No ab normal enhancement seen. IMPRESSION: Motion limited exam with no significant finding seen. ACT 112: Negative or not required by law. Electronically signed by: Kwaku Bailey M.D. 10/27/2024 2:26 PM
--- NOTE | 2024-10-27 14:39 | Magnetic Resonance Report ---
MR thoracic spine wo/w con HISTORY: 48 years-old Male Numbness from just above umbilicus down lower ext acute mid to low back p ain. No reported trauma COMPARISON: MRI cervical spine of same day, CTA chest 03/27/2014 TECHNIQUE: Multiplanar multisequence MRI of the thoracic spine was obtained with and without IV contr ast. FINDINGS: Mild to moderate spondylitic spurring of the mid to lower thoracic spine. Multilevel intervertebral d isc space narrowing, moderate at T6-T7, T7-T8, T8-T9 and T9-T10. There is a subcentimeter T8 vertebra l body hemangioma. No acute fracture, subluxation, endplate erosion or marrow replacing process. Norm al signal within the thoracic spinal cord. Study is motion degraded which limits evaluation of the ce ntral canal and neural foramen. Posterior epidural lipomatosis, most pronounced in the mid thoracic s pine. T7-T8: Posterior annular disc bulge. Right paracentral disc protrusion measures 10 x 3 mm on image 13 series 24. AP dimension of the thecal sac measures 7 mm. There is mild deformity upon the thoracic s catina cord resulting in mild to moderate central canal stenosis. No significant neural foraminal narr owing identified. T8-T9: Posterior epidural lipomatosis with post renal disc bulge. The central canal and left neural f oramen are generally patent. Mild right foraminal narrowing. IMPRESSION: 1. Motion degraded exam without acute fracture, subluxation or bone marrow edema. 2. No abnormal enhancement. 3. Posterior epidural lipomatosis is most pronounced within the mid thoracic spine. 4. Disc protrusion at T7-T8 in conjunction with the epidural lipomatosis causes mild to moderate cent ral canal stenosis. 5. Normal signal of the thoracic spinal cord. ACT 112: Negative or not required by law. The above report was generated using voice recognition software. It may contain grammatical, syntax o r spelling errors. Electronically signed by: Brooks Meneses M.D. 10/27/2024 2:37 PM
[2024-10-27] MEDS: DEXAMETHASONE SOD INJ 4 MG/ML VIAL IV STA (15:26)
--- NOTE | 2024-10-27 17:12 | History & Physical Report ---
Date of Service October 27, 2024 Assessment & Plan (1) Bilateral leg numbness: Plan: Acute and progressive over the past 2-3 weeks, unclear etiology - Admit to med tele - Diabetic diet - VS per unit protocol - MRI thoracic spine with T7 lipomatosis, suspicious that this could be contributing to symptoms, given dose of Decadron 10mg IV x1 - Consult orthospine, Dr. Felipe, appreciate assistance - PT/OT eval - Fall precautions - May require neurology consult depending on eval by Dr. Felipe - Vitamin B12 low at 290, folate 4.5. Ordered dose of cyanocobalamin 1000mg IM x1 (2) Acute kidney injury: Plan: Acute - Baseline creatinine 1.1, today 1.48 - Hydate with 500 cc of NSS x1 - Hold losartan - Trend creatinine in AM (3) Elevated troponin: Plan: Acute - No chest pain, EKG without acute ST-T wave changes - First trop 38.9 and repeat 67.6 - Repeat another 4 hour HS trop - Obtain echocardiogram - Continue aspirin and metoprolol - Will be on monitored unit, obtain EKG prn chest pain (4) Type 2 diabetes mellitus: Plan: Chronic - On ozempic chronically as outpatient - Diabetic diet ordered, ha1c 5.4% on 10/23/24 - Accuchecks ac and hs ordered in setting of IV steroid administration, may require insulin coverage if continues on IV steroids Plan Other chronic medical problems: 1. Gastric ulcer history - change omeprazole to protonix per hospital formulary 2. BPH - continue tamsulosin Lovenox has been ordered for DVT ppx. AM labs ordered. Above plan of care has been d/w Dr. Lou. Further orders will be implemented as clinically warranted. History of Present Illness Chief Complaint: Numbness of both legs Primary Care Provider: Santhosh Haney MD Kwaku is a 48 yo M with a pmhx of obesity, CAD s/p [place] in 2019 s/p PCI and stenting, COPD, HTN, DMT2, GERD, and BPH who presents to the ER today c/o 2-3 weeks of progressively worsening sensory changes and heaviness in his bilateral lower extremities. He denies any history of recent viral illnesses or recent vaccinations. He states that he feels as if someone injected novocaine in his legs and just about the level of his umbilicus. He denies back pain or injury. He reports legs feel heavy but doesn't necessarily endorse weakness. He denies any falls. While walking to work today, he began feeling increasingly short of breath. He denies any chest pain. He does have a cough which is "slight" denies fever or other URI symptoms. He contacted his PCP who referred him to neurology but was informed if his symptoms became constant to come to the ER. He has not yet been able to get in with neurology but the symptoms continue to get worse and he sought care in the ER today when he began experiencing the increased dyspnea. His w/u in the ER demonstrated a normal CBC, slightly low Na of 133 which is his baseline, bumped creatinine of 1.48 which is new for him and an elevated troponin of 38.9 with a repeat of 67.6. He is also noted to have a vitamin b12 of 290 and a folate of 4.5. Incidentally, on his CXR, he had a left lower lobe opacity. Case was d/w neurology who did not feel his symptoms represented GBS. MRI of thoracic spine noted a lipomatosis at T7 with mild to moderate central canal stenosis. Case d/w Dr. Felipe who will see patient in consult and recommended Decadron. Pt received a dose of IV dexamethasone 10mg x1 in the ER and has been referred for hospital admission. Allergies Allergy/AdvReac Type Severity Reaction Status Date / Time bee venom protein (honey bee) Allergy Intermediate SWELLING Verified 10/23/24 15:41 Home Medications Medication Instructions Recorded Confirmed Type aspirin 81 mg chewable tablet 81 mg PO QAM 05/24/19 10/27/24 History tamsulosin 0.4 mg capsule 0.4 mg PO HS 10/13/23 10/27/24 History Medical Marijuana 1 dose PO DIRECTED PRN Anxiety 12/06/23 10/27/24 History semaglutide 0.25 mg or 0.5 mg (2 0.5 mg (0.736 mL) subcut WK #3 mL 12/29/23 10/27/24 Rx mg/3 mL) subcutaneous pen injector (Ozempic) metoclopramide HCl 5 mg tablet 5 mg PO TID #90 tabs 08/28/24 10/27/24 Rx (Reglan) epinephrine 0.3 mg/0.3 mL 0.3 mg (0.3 mL) IM Q4H PRN 10/23/24 10/27/24 Rx injection, auto-injector anaphylaxis #2 ea losartan 25 mg tablet 12.5 mg (1/2 x 25 mg) PO QAM #30 10/23/24 10/27/24 Rx tabs metoprolol succinate 25 mg 12.5 mg (1/2 x 25 mg) PO HS #30 10/23/24 10/27/24 Rx tablet,extended release 24 hr tabs omeprazole 20 mg tablet,delayed 20 mg PO DAILY 10/27/24 10/27/24 History release Past Med/Surg History Problem List (Updated 10/27/24 @ 17:53 by Camden Marin DO) Abnormal MRI, thoracic spine (Acute) Numbness (Acute) МАРИНА (acute kidney injury) (Acute) Elevated troponin (Acute) Elevated troponin Acute kidney injury Bilateral leg weakness Bilateral leg paresthesia Bilateral leg numbness Current use of proton pump inhibitor Bloating Gastric ulcer Esophageal dysphagia Nocturia Urinary frequency History of colon polyps Obesity Abnormal finding on lung imaging Hypersomnia Marijuana use Exertional shortness of breath COPD with emphysema Ex-smoker Screening for colon cancer Anxiety Elevated LFTs Type 2 diabetes mellitus Abscess of right thigh Back pain (Acute) Back pain (Acute) S/P right coronary artery (RCA) stent placement (Acute) [facility] 1 STENT 03/24/2019 CAD (coronary atherosclerotic disease) (Acute) follows with Dr. Pandey Medical History Gastric ulcer Acid reflux Anxiety History of COVID-19 08/2021 > resolved Diabetes mellitus, type 2 Seizure hx as child, none since age 8 Chronic obstructive pulmonary disease no recent use of inhaler, controlled Cerebral hemorrhage HX-03/2019 CAD (coronary atherosclerotic disease) follows with Dr. Pandey STEMI (ST elevation myocardial infarction) 2019 Surgical History History of colonoscopy History of esophagogastroduodenoscopy (EGD) S/P vasectomy H/O oral surgery Family History Mother Brain cancer Other Family history non-contributory Denies family history of Prostate cancer Colorectal cancer Social History Smoking Status: Current every day smoker Tobacco Type: E-cigarettes / Vaping Second Hand Exposure: No; Do You Dip or Chew Tobacco: No; Hx Alcohol Use: No Hx Substance Use: Yes Last Used Substance Other:: 10/13/2023 Substance Use Type Other:: medical card >2x per week approx Preferred Language: Indonesian Communication Ability: Effective Visual Impairment: No Limitations Hearing Ability: Normal Lapel Baster Required: No Beliefs That Will Affect Care: None marital status: Current Living Situation: Spouse current occupational status: employed current occupation: Nurse [employer] Feels Safe at Home: Yes Assistive Devices: CPAP, Denture - Upper and Glasses Review of Systems 2 Review of Systems: All systems reviewed and are unremarkable except as noted in HPI and below. Denies fever, chills, fatigue, headache, nasal congestion, sore throat, cough, chest pain, shortness of breath, palpitations, orthopnea, PND, abdominal pain, n/v/d, constipation, dysuria, hematuria, frequency, back pain, joint pain or swelling, easy bruising or bleeding, skin lesions or rashes. Physical Exam 2 Physical Exam: GENERAL: 48 yo obese middle aged WM. No distress. EYES: EOMI. PERRLA. Anicteric. HENT: Moist mucous membranes. No cervical lymphadenopathy. LUNGS: Clear to auscultation bilaterally. No accessory muscle use. Crackles LLL. No wheezes or rhonchi. CARDIOVASCULAR: Regular rate and rhythm. No M/G/R. No JVD. ABDOMEN: Soft, non-tender and non-distended. Bowel sounds normoactive x 4 quad. EXTREMITIES: No edema. Non-tender. Peripheral pulses +2/4. +2 to 3/5 strength bilateral LE. NEUROLOGIC: A&O x3. Sensorineural changes noted anteriorly at level of middle of abdomen and below. PSYCHIATRIC: Cooperative. Appropriate mood and affect. SKIN: Warm, dry, intact. No rashes or lesions. Results & Data Results & Data Vital Signs (Past 12 Hours) Vital Signs Temp Pulse Pulse Resp BP BP Pulse Ox 10/27/24 15:55 93 H 10/27/24 15:17 36.8 C 93 H 23 112/51 L 97 10/27/24 14:35 93 H 32 H 94 10/27/24 14:34 93 H 30 H 88 L 10/27/24 14:09 95 H 24 117/41 L 91 10/27/24 11:56 96 H 10/27/24 11:26 101 H 20 95 10/27/24 11:22 102 H 18 116/44 L 95 10/27/24 11:22 96 10/27/24 10:38 36.6 C 107 H 20 132/70 97 O2 Del Method O2 Flow Rate 10/27/24 15:55 10/27/24 15:17 Nasal Cannula 2 10/27/24 14:35 Nasal Cannula 2 10/27/24 14:34 Room Air 10/27/24 14:09 Room Air 10/27/24 11:56 10/27/24 11:26 Room Air 10/27/24 11:22 Room Air 10/27/24 11:22 Room Air 10/27/24 10:38 Room Air Laboratory Results 10/27/24 10:56 10/27/24 10:56 Diagnostic Findings Chest X-Ray 10/27/24 11:26 XR chest 1V portable CLINICAL HISTORY: sob w/ exertion COMPARISON STUDY: 06/30/2023 FINDINGS: Stable mild cardiomegaly without pulmonary vascular congestion. There are faint reticular and patchy opacities at the left mid and lower lung. No other consolidation or pleural effusion. No pneumothorax. IMPRESSION: Faint opacities at the left lung could represent artifact or early pneumonia. ACT 112: Negative or not required by law. Electronically signed by: Kwaku Bailey M.D. 10/27/2024 11:49 AM Cervical Spine MRI 10/27/24 11:39 MR cervical spine wo/w con CLINICAL HISTORY: Numbness just above umbilicus down b/l LE's COMPARISON STUDY: Neck CT of 12/11/2018 FINDINGS: There is motion artifact. Spinal cord has normal signal and contour. No fracture or subluxation. No significant disc bulge seen. No significant central canal or neuroforaminal narrowing. No abnormal enhancement seen. IMPRESSION: Motion limited exam with no significant finding seen. ACT 112: Negative or not required by law. Electronically signed by: Kwaku Bailey M.D. 10/27/2024 2:[address] 10/27/24 11:39 CT OF THE HEAD WITHOUT CONTRAST CLINICAL HISTORY: numbness from just above umbilicus down COMPARISON STUDY: No previous studies for comparison. CT DOSE: 625.8 mGy.cm TECHNIQUE: Helical axial images of the head were obtained without IV contrast. Automated exposure control was utilized for the study. A dose lowering technique was utilized adhering to the principles of ALARA. FINDINGS: No acute intracranial hemorrhage, midline shift or mass effect is present. The ventricular system is unremarkable. The basal cisterns are patent. No extra-axial collections are present. There are no findings to suggest acute dural sinus thrombosis or acute territorial infarct. No significant calvarial abnormalities are present. Visualized portions of the sinuses and mastoid air cells are clear. IMPRESSION: No acute intracranial findings. ACT 112: Negative or not required by law. Electronically signed by: Gómez Moreno M.D. 10/27/2024 12:28 PM Thoracic Spine MRI 10/27/24 11:39 MR thoracic spine wo/w con HISTORY: 48 years-old Male Numbness from just above umbilicus down lower ext acute mid to low back pain. No reported trauma COMPARISON: MRI cervical spine of same day, CTA chest 03/27/2014 TECHNIQUE: Multiplanar multisequence MRI of the thoracic spine was obtained with and without IV contrast. FINDINGS: Mild to moderate spondylitic spurring of the mid to lower thoracic spine. Multilevel intervertebral disc space narrowing, moderate at T6-T7, T7-T8, T8-T9 and T9-T10. There is a subcentimeter T8 vertebral body hemangioma. No acute fracture, subluxation, endplate erosion or marrow replacing process. Normal signal within the thoracic spinal cord. Study is motion degraded which limits evaluation of the central canal and neural foramen. Posterior epidural lipomatosis, most pronounced in the mid thoracic spine. T7-T8: Posterior annular disc bulge. Right paracentral disc protrusion measures 10 x 3 mm on image 13 series 24. AP dimension of the thecal sac measures 7 mm. There is mild deformity upon the thoracic spinal cord resulting in mild to moderate central canal stenosis. No significant neural foraminal narrowing identified. T8-T9: Posterior epidural lipomatosis with post renal disc bulge. The central canal and left neural foramen are generally patent. Mild right foraminal narrowing. IMPRESSION: 1. Motion degraded exam without acute fracture, subluxation or bone marrow edema. 2. No abnormal enhancement. 3. Posterior epidural lipomatosis is most pronounced within the mid thoracic spine. 4. Disc protrusion at T7-T8 in conjunction with the epidural lipomatosis causes mild to moderate central canal stenosis. 5. Normal signal of the thoracic spinal cord. ACT 112: Negative or not required by law. The above report was generated using voice recognition software. It may contain grammatical, syntax or spelling errors. Electronically signed by: Brooks Meneses M.D. 10/27/2024 2:37 PM Code Status & VTE Plan Code Status Full code VTE Prophylaxis Plan VTE Prophylaxis will be ordered: Yes PG Care Time/CCT Total # of Minutes Spent Total Time Spent with Patient: Total time spent is greater than 50% in coordination of care (as documented) at patient's floor/unit and/or counseling patient: 80 minutes Coding Level of Care Code 67223 INT INP/OBS CARE 3/75MIN Diagnoses Bilateral leg numbness R20.0 Acute kidney injury N17.9 Elevated troponin R79.89 Type 2 diabetes mellitus E11.9
[2024-10-27 17:38] LABS: Appearance Urine Clear (Clear); Bilirubin Urine Negative (Negative); Blood Urine Negative (Negative); Color Urine Yellow; Glucose Urine UA Negative (Negative); Ketones Urine Negative (Negative); Leukocyte Esterase Urine Negative (Negative); Nitrite Urine Negative (Negative); Protein Urine Negative (Negative); Specific Gravity Urine 1.025 (1.000-1.030); Urobilinogen Urine Negative (Negative)
[2024-10-27 18:01] LABS: Amphetamines+Metham, Urine Neg (Neg); Barbiturates, Urine Neg (Neg); Benzodiazepine, Urine Neg (Neg); Cocaine, Urine Neg (Neg); Fentanyl, Urine Neg (Neg); MDMA (Ecstacy), Urine Neg (Neg); Marijuana, Urine Pos (Neg); Methadone, Urine Neg (Neg); Opiate, Urine Neg (Neg); Phencyclidine, Urine Neg (Neg)
--- NOTE | 2024-10-27 18:17 | Orthopedic Consultation ---
Date of Service October 27, 2024 History of Present Illness Reason for Consultation: Numbness lower extremities. Thoracic stenosis. Requesting Physician: . 48 yo M with a pmhx of obesity, CAD s/p [place] in 2019 s/p PCI and stenting, COPD, HTN, DMT2, GERD, and BPH who presents to the ER today c/o 2-3 weeks of progressively worsening sensory changes and heaviness in his bilateral lower extremities. He denies any history of recent viral illnesses or recent vaccinations. He states that he feels as if someone injected novocaine in his legs and just about the level of his umbilicus. He denies back pain or injury. He reports legs feel heavy but doesn't necessarily endorse weakness. He denies any falls. While walking to work today, he began feeling increasingly short of breath. He denies any chest pain. He does have a cough which is "slight" denies fever or other URI symptoms. He contacted his PCP who referred him to neurology but was informed if his symptoms became constant to come to the ER. He has not yet been able to get in with neurology but the symptoms continue to get worse and he sought care in the ER today when he began experiencing the increased dyspnea. His w/u in the ER demonstrated a normal CBC, slightly low Na of 133 which is his baseline, bumped creatinine of 1.48 which is new for him and an elevated troponin of 38.9 with a repeat of 67.6. He is also noted to have a vitamin b12 of 290 and a folate of 4.5. Incidentally, on his CXR, he had a left lower lobe opacity. Case was d/w neurology who did not feel his symptoms represented GBS. MRI of thoracic spine noted a lipomatosis at T7 with mild to moderate central canal stenosis. In talking with the patient, he relates that he did not really feel any significant change in the strength in his legs until in the last week and it was subtle and its appearance. He denies any significant axial symptomatology. Exam reveals the patient to not have demonstrated any pain to palpation lumbar spine. Motor exam reveals him to have what I thought was relatively symmetric EHL strength, perhaps slightly weaker on the left with 4+, plantarflexion was intact 5/5, bilateral knee extension strength was in the 4+ range, rest knee flexion appeared to be intact at 5/5 as was hip flexion. No notable reflexes for knee or ankle, no clonus. Sensation to light touch demonstrated change just above the umbilicus and roughly diffuse throughout the remainder of the lower abdomen and lower extremities. MR thoracic spine wo/w con October 27, 2024 HISTORY: 48 years-old Male Numbness from just above umbilicus down lower ext acute mid to low back pain. No reported trauma COMPARISON: MRI cervical spine of same day, CTA chest 03/27/2014 TECHNIQUE: Multiplanar multisequence MRI of the thoracic spine was obtained with and without IV contrast. FINDINGS: Mild to moderate spondylitic spurring of the mid to lower thoracic spine. Multilevel intervertebral disc space narrowing, moderate at T6-T7, T7-T8, T8-T9 and T9-T10. There is a subcentimeter T8 vertebral body hemangioma. No acute fracture, subluxation, endplate erosion or marrow replacing process. Normal signal within the thoracic spinal cord. Study is motion degraded which limits evaluation of the central canal and neural foramen. Posterior epidural lipomatosis, most pronounced in the mid thoracic spine. T7-T8: Posterior annular disc bulge. Right paracentral disc protrusion measures 10 x 3 mm on image 13 series 24. AP dimension of the thecal sac measures 7 mm. There is mild deformity upon the thoracic spinal cord resulting in mild to moderate central canal stenosis. No significant neural foraminal narrowing identified. T8-T9: Posterior epidural lipomatosis with post renal disc bulge. The central canal and left neural foramen are generally patent. Mild right foraminal narr owing. IMPRESSION: 1. Motion degraded exam without acute fracture, subluxation or bone marrow edema. 2. No abnormal enhancement. 3. Posterior epidural lipomatosis is most pronounced within the mid thoracic spine. 4. Disc protrusion at T7-T8 in conjunction with the epidural lipomatosis causes mild to moderate central canal stenosis. 5. Normal signal of the thoracic spinal cord. Review of cervical and thoracic MRI images from October 27, 2024, this is my separate review, this reveals the patient to have some limited changes involving the distance he 6 7, T7-8 and T8-9, there is central right disc protrusion at T7-8 resulting in moderate canal stenosis, there is no signal change in the cord, there is an increase in epidural lipomatosis posteriorly at T7 and T8. Impression: Development of numbness from the lower abdomen inferiorly involving both lower extremities and some lower extremity symptomatology from a motor aspect as noted, no recent trauma, findings as noted with stenosis at the T7-8 level due to a combination of disc protrusion in combination with epidural lipomatosis. Plan: I talked with the patient at length and explained the findings on the imaging studies, and explained that at this time I think the origin of the symptoms is from the T7-8 findings. I relayed to the patient that certainly we can pursue some medical management with a trial of steroids, but with this we will monitor how he is doing over the next day or 2. I related though that surgical considerations should be made relative to addressing the areas of stenosis, specifically I discussed with him the surgical plan of posterior decompression at T7 and T8 along with posterior instrumentation and fusion T6- T9. I discussed with him the technical details of how surgery is performed, potential risk complication including but not exclusive chances of infection, neurologic injury, and postoperative healing. At this time we have agreed upon monitoring his situation over the next day or 2 depending on any changes in his exam and then plan accordingly. Recommend continue Decadron every 8 4 more doses along with some pregabalin 75 mg every 8. Will reassess over the weekend with potential surgery next week. Allergies Allergy/AdvReac Type Severity Reaction Status Date / Time bee venom protein (honey bee) Allergy Intermediate SWELLING Verified 10/23/24 15:41 Home Medications Medication Instructions Recorded Confirmed Type aspirin 81 mg chewable tablet 81 mg PO QAM 05/24/19 10/27/24 History tamsulosin 0.4 mg capsule 0.4 mg PO HS 10/13/23 10/27/24 History Medical Marijuana 1 dose PO DIRECTED PRN Anxiety 12/06/23 10/27/24 History semaglutide 0.25 mg or 0.5 mg (2 0.5 mg (0.736 mL) subcut WK #3 mL 12/29/23 10/27/24 Rx mg/3 mL) subcutaneous pen injector (Ozempic) metoclopramide HCl 5 mg tablet 5 mg PO TID #90 tabs 08/28/24 10/27/24 Rx (Reglan) epinephrine 0.3 mg/0.3 mL 0.3 mg (0.3 mL) IM Q4H PRN 10/23/24 10/27/24 Rx injection, auto-injector anaphylaxis #2 ea losartan 25 mg tablet 12.5 mg (1/2 x 25 mg) PO QAM #30 10/23/24 10/27/24 Rx tabs metoprolol succinate 25 mg 12.5 mg (1/2 x 25 mg) PO HS #30 10/23/24 10/27/24 Rx tablet,extended release 24 hr tabs omeprazole 20 mg tablet,delayed 20 mg PO DAILY 10/27/24 10/27/24 History release Past Med/Surg History Problem List (Updated 10/27/24 @ 17:53 by Camden Marin DO) Abnormal MRI, thoracic spine (Acute) Numbness (Acute) МАРИНА (acute kidney injury) (Acute) Elevated troponin (Acute) Elevated troponin Acute kidney injury Bilateral leg weakness Bilateral leg paresthesia Bilateral leg numbness Current use of proton pump inhibitor Bloating Gastric ulcer Esophageal dysphagia Nocturia Urinary frequency History of colon polyps Obesity Abnormal finding on lung imaging Hypersomnia Marijuana use Exertional shortness of breath COPD with emphysema Ex-smoker Screening for colon cancer Anxiety Elevated LFTs Type 2 diabetes mellitus Abscess of right thigh Back pain (Acute) Back pain (Acute) S/P right coronary artery (RCA) stent placement (Acute) [facility] 1 STENT 03/24/2019 CAD (coronary atherosclerotic disease) (Acute) follows with Dr. Pandey Medical History Gastric ulcer Acid reflux Anxiety History of COVID-19 08/2021 > resolved Diabetes mellitus, type 2 Seizure hx as child, none since age 8 Chronic obstructive pulmonary disease no recent use of inhaler, controlled Cerebral hemorrhage HX-03/2019 CAD (coronary atherosclerotic disease) follows with Dr. Pandey STEMI (ST elevation myocardial infarction) 2019 Surgical History History of colonoscopy History of esophagogastroduodenoscopy (EGD) S/P vasectomy H/O oral surgery Family History Mother Brain cancer Other Family history non-contributory Denies family history of Prostate cancer Colorectal cancer Social History Smoking Status: Former smoker Tobacco Type: E-cigarettes / Vaping Second Hand Exposure: No; Do You Dip or Chew Tobacco: No; Hx Alcohol Use: No Hx Substance Use: No Preferred Language: Tajik Communication Ability: Effective Visual Impairment: No Limitations Hearing Ability: Normal Mysql Database Developer Required: No Beliefs That Will Affect Care: None marital status: Current Living Situation: Spouse current occupational status: employed current occupation: Nurse [employer] Feels Safe at Home: Yes Safety Concerns: Feels Safe At This Time Assistive Devices: Denture - Upper and Glasses Review of Systems All systems reviewed & are unremarkable except as noted in HPI & below. Physical Exam . Results & Data Results & Data Laboratory Results . Diagnostic Findings . PG Care Time/CCT Total # of Minutes Spent Total Time Spent with Patient: Total time spent is greater than 50% in coordination of care (as documented) at patient's floor/unit and/or counseling patient: Coding Level of Care Code 23498 IN/OBS CONSULT LVL 5,80M
[2024-10-27] MEDS ORDERED: ONDANSETRON INJ 2 MG/ML 2 ML VIAL IV PRN (19:19)
[2024-10-27] MEDS ORDERED: MAGNESIUM HYDROXIDE SUSP 30 ML UDC PO PRN (19:19)
[2024-10-27] MEDS ORDERED: CARBOHYDRATES FOR HYPOGLYCEMIA PO PRN (19:19)
[2024-10-27] MEDS ORDERED: GLUCAGON FOR INJ 1 MG VIAL SQ PRN (19:19)
[2024-10-27] MEDS ORDERED: POLYETHYLENE (MIRALAX) 17 GM PACK PO PRN (19:19)
[2024-10-27] MEDS ORDERED: GLUCOSE 40% GEL 15 GM TUBE PO PRN (19:19)
[2024-10-27] MEDS ORDERED: GLUCOSE 10 TAB/TUBE PO PRN (19:19)
[2024-10-27] MEDS ORDERED: ALUMINUM/MAGNESIUM SUSP 30 ML UDC PO PRN (19:19)
[2024-10-27] MEDS ORDERED: DEXTROSE 50% 50 ML SYRINGE IV PRN (19:19)
[2024-10-27] MEDS: SODIUM CHLORIDE 0.9% 500 ML IV SCH (19:33)
[2024-10-27] MEDS: CYANOCOBALAMIN 1000 MCG/ML VIAL IM SCH (19:39)
[2024-10-27] MEDS: ENOXAPARIN INJ 40 MG/0.4 ML SYR SQ SCH (20:50)
[2024-10-27] MEDS: PREGABALIN 75 MG CAP PO SCH (20:50)
[2024-10-27] MEDS: METOPROLOL SUCC 25MG EXT REL TAB PO SCH (20:51)
[2024-10-27] MEDS: METOCLOPRAMIDE HCL 5 MG TABLET PO SCH (20:51)
[2024-10-27] MEDS: TAMSULOSIN HCL 0.4 MG CAP PO SCH (20:51)
[2024-10-27] MEDS: dexAMETHasone 10 MG in SYRINGE 0 ML IV SCH (23:34)
[2024-10-28 06:26] LABS: Basophils # (auto) 0.01 K/uL (0.00-0.20); Basophils % (auto) 0.2 %; Eosinophils # (auto) 0.01 K/uL (0.00-0.50); Eosinophils % (auto) 0.2 %; Hematocrit (blood only) 39.2 % (42.0-52.0); Hemoglobin 13.1 g/dl (14.0-18.0); Immature Granulocytes # (auto) 0.02 K/uL (0.01-0.20); Immature Granulocytes % (auto) 0.3 %; Lymphocytes # (auto) 0.69 K/uL (1.20-3.40); Lymphocytes % (auto) 11.4 %; Mean Corpuscular Hemoglobin 28.9 pg (25.0-34.0); Mean Corpuscular Hgb Conc 33.4 g/dL (32.0-36.0); Mean Corpuscular Volume 86.5 fL (80.0-100.0); Mean Platelet Volume 9.2 fL (9.4-12.4); Monocytes # (auto) 0.09 K/uL (0.11-0.59); Monocytes % (auto) 1.5 %; Neutrophils # (auto) 5.25 K/uL (1.40-6.50); Neutrophils % (auto) 86.4 %; Platelet Count 241 K/uL (130-400); RDW Coefficient of Variation 13.5 % (11.5-14.5); Red Blood Count 4.53 M/uL (4.70-6.10); White Blood Count 6.07 K/ul (4.8-10.8)
[2024-10-28 06:44] LABS: BUN Creatinine Ratio 10.4 (10-20); Calcium 9.4 mg/dl (8.6-10.3); Creatinine Clr Calc Pharmacy 71.5 ml/min; Magnesium 1.9 mg/dl (1.7-2.4); Potassium 4.8 mmol/L (3.5-5.1)
[2024-10-28] MEDS: ASPIRIN 81 MG CHEW PO SCH (08:05)
[2024-10-28] MEDS: PANTOprazole 40 MG TAB PO SCH (08:05)
[2024-10-28] MEDS ORDERED: ENOXAPARIN INJ 40 MG/0.4 ML SYR SQ SCH (09:00)
--- NOTE | 2024-10-28 09:55 | Orthopedic Progress Note ---
Date of Service October 28, 2024 Subjective Patient reports no change in his symptoms, does not have any progression in weakness or numbness. No changes in examination relative to motor strength. Impression/plan: I talked with the patient related that we will see how he does overnight, there are cardiac issues still being addressed with him having undergone an echo. We rediscussed the possibility of surgical intervention relative to the thoracic stenosis, he is in agreement with this plan. Review of Systems All systems reviewed & are unremarkable except as noted in HPI & below. Physical Exam . Results & Data Results & Data Laboratory Results . Diagnostic Findings . PG Care Time/CCT Total # of Minutes Spent Total Time Spent with Patient: Total time spent is greater than 50% in coordination of care (as documented) at patient's floor/unit and/or counseling patient: Coding Level of Care Code 52936 SUB INP/OBS CARE 09/16MIN
--- NOTE | 2024-10-28 10:50 | XCELERA ---
[id number]
[2024-10-28] MEDS ORDERED: PHARMACY GLYCEMIC MGMT CONSULT PRN (12:43)
[2024-10-28] MEDS: LANTUS PER UNIT CHARGE SC ONE (13:23)
[2024-10-28] MEDS: SODIUM CHLORIDE 0.9% 500 ML IV SCH (13:23)
--- NOTE | 2024-10-28 13:32 | Pharmacy Report ---
Pharmacy Glycemic Short Note 2 - Date of Service October 28, 2024 - Glycemic Short BSG Results (Last 24 hours): 10/27/24 10/28/24 10/28/24 20:09 05:54 07:05 Glucose 173 H POC Glucose 174 H 242 H 10/28/24 11:06 Glucose POC Glucose 197 H OUTPATIENT ANTIDIABETIC REGIMEN: * Ozempic 0.5mg SQ weekly HbA1c: 5.4% on 10-23-24 ASSESSMENT: * 48year old male admitted 10/27 for bilateral LE numbness. Pharmacy has been consulted for glycemic management while he is admitted as he was started on routine iv steroids * Fasting BSG was 242mg/dL this morning and was 197mg/dL at lunch today. Lantus 10 units SQ x 1 was ordered for this afternoon. A weight based (using adjusted body weight) bolus insulin regimen with a stress between 1 and 2 was also ordered. * Steroids are scheduled to stop after the dose this evening, so it is expected that he will require much less insulin tomorrow. PLAN FOR INPATIENT GLYCEMIC CONTROL: * Hold outpatient diabetes medications * Basal insulin * Lantus 10 units SQ x 1, further need will be assessed with additional BSGs * Bolus insulin * NovoLog per scale ACHS or Q6hrs while NPO * Goal Range: Low 110 mg/dL - High 140 mg/dL * Correction Factor: 35 mg/dL/unit * Nutritional / Prandial insulin per carb ratio of 1 unit per 20 grams CHO consumed
[2024-10-28] MEDS: INSULIN ASPART PER UNIT CHARGE SC SCH (13:57)
--- NOTE | 2024-10-28 15:19 | Hospitalist Progress Note ---
Date of Service October 28, 2024 Assessment & Plan (1) Bilateral leg numbness: Plan: Acute and progressive over the past 2-3 weeks, unclear etiology - Diabetic diet - VS per unit protocol - MRI thoracic spine with T7 lipomatosis, suspicious that this could be contributing to symptoms -Orthospine involved. Anticipating tentative surgery next week. Until then, treat with Decadron - PT/OT eval - Fall precautions - Vitamin B12 low at 290, folate 4.5. Ordered dose of cyanocobalamin 1000mg IM x1 (2) Acute kidney injury: Plan: Acute - Baseline creatinine 1.1, today 1.5 - Hydate further with IV fluids - Hold losartan - Trend creatinine (3) Elevated troponin: Plan: Acute - No chest pain, EKG without acute ST-T wave changes -Troponin peaked at 67 -Echocardiogram shows hypokinesis of inferior wall which is old. Likely demand ischemia - Continue aspirin and metoprolol - Will be on monitored unit, obtain EKG prn chest pain (4) Type 2 diabetes mellitus: Plan: Chronic - On ozempic chronically as outpatient - Diabetic diet ordered, ha1c 5.4% on 10/23/24 - Accuchecks ac and hs ordered in setting of IV steroid administration, Fingersticks running high. Will add sliding scale insulin. Pharmacy consulted Plan Other chronic medical problems: 1. Gastric ulcer history - change omeprazole to protonix per hospital formulary 2. BPH - continue tamsulosin Lovenox has been ordered for DVT ppx. Admission and Anticipated Discharge Date Admission Date: October 27, 2024 Subjective Patient was seen and examined at 11:55 AM. He was accompanied by his significant other at the bedside. Denied chest pain or shortness of breath. Says that his legs still feel like rubber. The nurse informed me that his sugars are running high and he does not have any covering insulin written for. Review of Systems Review of Systems: All systems reviewed & are unremarkable except as noted in Subjective Physical Exam Physical Exam: General: Awake, conversant. Obese patient Heart: S1, S2/regular rate and rhythm, no murmur rubs or gallops Lungs: Clear to auscultation bilaterally. Normal effort Abdomen: Soft/nontender/nondistended. No hepatosplenomegaly Extremities: No clubbing/cyanosis. No edema Behavior: Appropriate, cooperative Results & Data Results & Data Vital Signs (Past 12 Hours) Vital Signs Temp Pulse Pulse Resp BP Pulse Ox O2 Del Method 10/28/24 14:03 91 H 10/28/24 10:58 37.2 C 87 18 94/53 L 95 Room Air 10/28/24 07:00 36.8 C 89 20 132/54 L 91 Room Air PG Care Time/CCT Total # of Minutes Spent Total Time Spent with Patient: Total time spent is greater than 50% in coordination of care (as documented) at patient's floor/unit and/or counseling patient: Coding Level of Care Code 21250 SUB INP/OBS CARE 2/35MIN Diagnoses Bilateral leg numbness R20.0 Acute kidney injury N17.9 Elevated troponin R79.89 Type 2 diabetes mellitus E11.9
[2024-10-28] MEDS: SODIUM CHLORIDE 0.9% 1,000 ML IV SCH (16:44)
[2024-10-29] MEDS: LANTUS PER UNIT CHARGE SC ONE (09:10)
[2024-10-29] MEDS: dexAMETHasone 10 MG in SYRINGE 0 ML IV SCH (09:11)
--- NOTE | 2024-10-29 11:39 | Orthopedic Progress Note ---
Date of Service October 29, 2024 Subjective Patient seen and examined, he notes no improvement with the steroid treatment that was employed relative to his symptomatology. He feels similar weakness, perhaps slightly worse with numbness not improved. Exam reveals some weakness with knee extension strength bilaterally hip flexion still in the 4+ range. Impression/plan: Thoracic spinal stenosis. Patient is scheduled for operative posterior decompression fusion instrumentation tomorrow. I reviewed with him the nature of the operation hospital postoperative course noting that he might need rehab postoperatively, he is in agreement with this plan. Review of Systems All systems reviewed & are unremarkable except as noted in HPI & below. Physical Exam . Results & Data Results & Data Laboratory Results . Diagnostic Findings . PG Care Time/CCT Total # of Minutes Spent Total Time Spent with Patient: Total time spent is greater than 50% in coordination of care (as documented) at patient's floor/unit and/or counseling patient: Coding Level of Care Code 28387 SUB INP/OBS CARE 2/35MIN
--- NOTE | 2024-10-29 14:59 | Hospitalist Progress Note ---
Date of Service October 29, 2024 Assessment & Plan (1) Bilateral leg numbness: Plan: Acute and progressive over the past 2-3 weeks, unclear etiology - Diabetic diet - VS per unit protocol - MRI thoracic spine with T7 lipomatosis, suspicious that this could be contributing to symptoms -Orthospine involved. Scheduled for OR tomorrow. Until then, treat with Decadron. Stop Decadron after today - PT/OT eval - Fall precautions - Vitamin B12 low at 290, folate 4.5. Ordered dose of cyanocobalamin 1000mg IM x1 (2) Acute kidney injury: Plan: Acute - Baseline creatinine 1.1, 1.5 on admission - Hydate further with IV fluids - Hold losartan -Check BMP stat (3) Elevated troponin: Plan: Acute - No chest pain, EKG without acute ST-T wave changes -Troponin peaked at 67 -Echocardiogram shows hypokinesis of inferior wall which is an old finding. Likely demand ischemia - Continue aspirin and metoprolol - Will be on monitored unit, obtain EKG prn chest pain (4) Type 2 diabetes mellitus: Plan: Chronic - On ozempic chronically as outpatient - Diabetic diet ordered, ha1c 5.4% on 10/23/24 - Accuchecks ac and hs ordered in setting of IV steroid administration, Fingersticks running high. Will add sliding scale insulin. Pharmacy consulted Plan Other chronic medical problems: 1. Gastric ulcer history - change omeprazole to protonix per hospital formulary 2. BPH - continue tamsulosin Lovenox has been ordered for DVT ppx. Admission and Anticipated Discharge Date Admission Date: October 27, 2024 Subjective Patient was seen and examined at 11:25 AM. Denies chest pain or shortness of breath. He tells me that he has been scheduled for OR tomorrow Review of Systems Review of Systems: All systems reviewed & are unremarkable except as noted in Subjective Physical Exam Physical Exam: General: Awake, conversant. Obese patient Heart: S1, S2/regular rate and rhythm, no murmur rubs or gallops Lungs: Clear to auscultation bilaterally. Normal effort Abdomen: Soft/nontender/nondistended. No hepatosplenomegaly Extremities: No clubbing/cyanosis. No edema Behavior: Appropriate, cooperative Results & Data Results & Data Vital Signs (Past 12 Hours) Vital Signs Temp Pulse Resp BP Pulse Ox O2 Del Method 10/29/24 10:55 36.3 C L 92 H 20 125/67 98 Room Air 10/29/24 07:00 36.6 C 98 H 16 113/63 94 Room Air 10/29/24 04:03 36.7 C 74 18 123/67 94 Room Air Laboratory Results Abnormal lab results 10/28/24 10/28/24 10/28/24 Range/Units 16:04 17:34 20:23 POC Glucose 141 H 160 H 138 H (70-99) mg/dl 10/29/24 10/29/24 Range/Units 07:00 11:05 POC Glucose 179 H 163 H (70-99) mg/dl PG Care Time/CCT Total # of Minutes Spent Total Time Spent with Patient: Total time spent is greater than 50% in coordination of care (as documented) at patient's floor/unit and/or counseling patient: Coding Level of Care Code 15917 SUB INP/OBS CARE 2/35MIN Diagnoses Bilateral leg numbness R20.0 Acute kidney injury N17.9 Elevated troponin R79.89 Type 2 diabetes mellitus E11.9
[2024-10-29 15:42] LABS: BUN Creatinine Ratio 21.3 (10-20); Calcium 8.8 mg/dl (8.6-10.3); Creatinine Clr Calc Pharmacy 54.5 ml/min; Potassium 4.8 mmol/L (3.5-5.1)
[2024-10-29] MEDS: SODIUM CHLORIDE 0.9% 500 ML IV ONE (17:02)
--- NOTE | 2024-10-29 17:41 | Ultrasound Report ---
EXAM: US Retroperitoneal Limited Renal INDICATION: Acute renal insufficiency. TECHNIQUE: Real-time limited ultrasound of the kidneys and bladder with image documentation. COMPARISON: No relevant prior studies available. FINDINGS: Right kidney: 11.4 cm long. Cortical thickness and echotexture maintained. No stones. No solid mass. No hydronephrosis. Left kidney: 12.2 cm long. Cortical thickness and echotexture maintained. No stones. No solid mass. No hydronephrosis. Bladder: No significant abnormality noted. IMPRESSION: Normal sonographic appearance of the kidneys and bladder. ACT 112: N/A Electronically signed by Sally Valderrama 10-29-2024 5:40 PM
[2024-10-29] MEDS: ACETAMINOPHEN 325 MG TAB PO PRN (21:01)
[2024-10-30] MEDS: LORazepam 2 MG/1 ML VIAL IV PRN (01:00)
[2024-10-30] MEDS ORDERED: Nursing to Pharmacy Communication SCH (05:00)
[2024-10-30] MEDS: INSULIN ASPART PER UNIT CHARGE SC SCH (06:07)
[2024-10-30 06:22] LABS: Hematocrit (blood only) 39.1 % (42.0-52.0); Hemoglobin 13.2 g/dl (14.0-18.0); Mean Corpuscular Hemoglobin 28.7 pg (25.0-34.0); Mean Corpuscular Hgb Conc 33.8 g/dL (32.0-36.0); Mean Platelet Volume 8.8 fL (9.4-12.4); Platelet Count 346 K/uL (130-400); RDW Coefficient of Variation 13.7 % (11.5-14.5); RDW Standard Deviation 41.5 fL (36.4-46.3); White Blood Count 18.32 K/ul (4.8-10.8)
[2024-10-30 06:41] LABS: Anion Gap 17 (3-11); BUN Creatinine Ratio 23.9 (10-20); Blood Urea Nitrogen 56 mg/dl (6-23); Calcium 8.4 mg/dl (8.6-10.3); Carbon Dioxide 12 mmol/L (21-32); Chloride 96 mmol/L (98-107); Creatinine Clr Calc Pharmacy 47.1 ml/min; Glucose 177 mg/dl (70-99(Fasting)); Sodium 125 mmol/L (136-145)
[2024-10-30] MEDS ORDERED: fentaNYL citrate PF 100 MCG/2 ML VIAL ONE ×2 (08:49→13:52)
[2024-10-30] MEDS ORDERED: MIDAZOLAM HCL 1 MG/ML 2ML VIAL ONE ×3 (08:49→20:51)
[2024-10-30] MEDS ORDERED: GLYCOPYRROLATE 0.2 MG/ML VIAL ONE (08:50)
[2024-10-30] MEDS ORDERED: DEXAMETHASONE SOD INJ 4 MG/ML VIAL ONE (08:50)
[2024-10-30] MEDS ORDERED: ONDANSETRON INJ 2 MG/ML 2 ML VIAL ONE (08:50)
[2024-10-30] MEDS ORDERED: ROCURONIUM BROMIDE 10 MG/ML 5 ML VIAL IV ONE ×3 (08:51→20:49)
[2024-10-30] MEDS ORDERED: PROPOFOL IV EMULSION 10 MG/ML 20 ML VIAL IV ONE (08:51)
[2024-10-30] MEDS ORDERED: LANTUS PER UNIT CHARGE SC SCH (09:00)
[2024-10-30] MEDS ORDERED: STAT IV/IM STA ×2 (09:41→23:23)
--- NOTE | 2024-10-30 09:56 | Nephrology Consultation ---
Date of Consultation October 30, 2024 Assessment & Plan (1) МАРИНА (acute kidney injury): (2) Metabolic acidosis with increased anion gap and reduced excretion of inorganic acids: (3) Acute hyponatremia: (4) Abnormal MRI, thoracic spine: (5) Bilateral leg paresthesia: Plan 48-year old with baseline decent kidney function admitted to the hospital with 2 to 3 weeks history of worsening numbness and weakness of bilateral lower extremity and MRI of spine showed lipomatosis and mild to moderate central canal stenosis at T7-T8 and disc protrusion at T7-T8. Baseline creatinine 1.1-1.2 mg/dl, on admission creatinine was 1.5 mg/dl which has been rapidly worsening, creatinine up to 2.3 mg/dl this morning with worsening electrolyte abnormality including acute hyponatremia and Metabolic acidosis. Sodium down to 125, urine osmolality 450. Urinalysis and renal ultrasound unremarkable. Blood pressure has been slightly variable but no profound hypotension. No evidence of volume depletion. Unclear etiology for МАРИНА and critical electrolyte abnormality, question some contribution from high-dose steroid or hemodynamically mediated МАРИНА. Sodium dropped further to 125 associated with metabolic acidosis and worsening kidney function. Has been having decent urine output. Volume status stable. --200 mL of 3% saline bolus now and then start on bicarb drip at 200 mL/h --Repeat kidney function and electrolyte at 1 PM. if serum sodium and bicarbonate improved, okay to go ahead with spine surgery this afternoon but if progressive worsening of kidney function and electrolyte, may need to hold surgery till tomorrow unless there is any urgency and concern for serious neurological dysfunction. Discussed in detail with Mr Santiago and the care team. Thank you for allowing me to participate in your patient's care. History of Present Illness Reason for Consultation: МАРИНА, electrolyte abnormalities Attending Physician: Buddy Ponce MD History of Present Illness Mr. Kwaku Santiago is a 48 yo M with PMH of of HTN, DM, CAD s/p [place] in 2019 s/p PCI and stenting, COPD, GERD, and BPH admitted to hospital on 10/27/2024 with weakness of bilateral lower extremity. Nephrology consult was requested as he developed МАРИНА and multiple electrolyte abnormality since admission. EMR records were reviewed in detail during patient's visit. Kwaku presented to the ER on 10/27/24 with 2-3 weeks of progressively numbness and heaviness in his bilateral lower extremities which was getting worse prompting him to come to ER for further evaluation. His vital signs are normal and he was otherwise asymptomatic on admission. Workup in ER showed his creatinine of 1.4 mg/dl with baseline decent kidney function and creatinine 1.1-1.2 mg/dl. CBC showed normal CBC and white cell count. Electrolytes are notable for mildly low serum sodium at 133 and bicarbonate 18 with normal anion gap. Troponin was mildly elevated but serial troponin stabilized. chest x-ray was notable for left lower lobe opacity. He was evaluated by neurology and did not feel his symptoms suggestive of GBS. MRI of spine noted a lipomatosis at T7 with mild to moderate central canal stenosis, disc protrusion at T7-T8.on he was seen by spine surgery, initially started on Decadron and plan to monitor for 2 days but over the weekend his symptoms of lower extremity weakness slightly worsened and plan was to do decompression surgery this morning. Lab yesterday afternoon was notable for further worsening of kidney function, creatinine was 2.0 associated multiple electrolyte abnormality including drop in serum sodium to 126, bicarbonate 16. He received IV NS did not have any nausea, vomiting or diarrhea. which was stopped daily for yesterday. Yesterday he received another 500 mL of IV fluid boluses. Blood pressure has been decent although variable with occasional relatively low blood pressure. His p.o. intake has been normal, has been voiding normally. No nephrotoxic medication exposure. Losartan 12.5 mg was stopped on admission. Urinalysis yesterday afternoon was negative for proteinuria, hematuria or pyuria. Renal ultrasound showed bilateral otherwise normal size kidney no postrenal obstruction. Urine osmolality was 450. Past medical history significant for hypertension, diabetes, coronary artery disease status post PCI and stent in 2019. Blood pressure and diabetes both seem to be well-controlled. Was on losartan 12.5 mg which was stopped on admission. Previously was on Ozempic. Has not been on SGLT2 inhibitors. Current smoker/Vape. No known family history of CKD or ESKD. RN, works at [employer]. Lab this morning showed further worsening of kidney function, creatinine up to 2.3 mg/dl, sodium 125, bicarb 12 with high anion gap. He reports otherwise feeling well, denies SOB, F/C/V/V, no diarrhea. Po intake has been decent, NPO overnight. Allergies Allergy/AdvReac Type Severity Reaction Status Date / Time bee venom protein (honey bee) Allergy Intermediate SWELLING Verified 10/23/24 15:41 Home Medications Medication Instructions Recorded Confirmed Type aspirin 81 mg chewable tablet 81 mg PO QAM 05/24/19 10/27/24 History tamsulosin 0.4 mg capsule 0.4 mg PO HS 10/13/23 10/27/24 History Medical Marijuana 1 dose PO DIRECTED PRN Anxiety 12/06/23 10/27/24 History semaglutide 0.25 mg or 0.5 mg (2 0.5 mg (0.736 mL) subcut WK #3 mL 12/29/23 10/27/24 Rx mg/3 mL) subcutaneous pen injector (Ozempic) metoclopramide HCl 5 mg tablet 5 mg PO TID #90 tabs 08/28/24 10/27/24 Rx (Reglan) epinephrine 0.3 mg/0.3 mL 0.3 mg (0.3 mL) IM Q4H PRN 10/23/24 10/27/24 Rx injection, auto-injector anaphylaxis #2 ea losartan 25 mg tablet 12.5 mg (1/2 x 25 mg) PO QAM #30 10/23/24 10/27/24 Rx tabs metoprolol succinate 25 mg 12.5 mg (1/2 x 25 mg) PO HS #30 10/23/24 10/27/24 Rx tablet,extended release 24 hr tabs omeprazole 20 mg tablet,delayed 20 mg PO DAILY 10/27/24 10/27/24 History release Patient History Medical History Gastric ulcer Acid reflux Anxiety History of COVID-19 08/2021 > resolved Diabetes mellitus, type 2 Seizure hx as child, none since age 8 Chronic obstructive pulmonary disease no recent use of inhaler, controlled Cerebral hemorrhage HX-03/2019 CAD (coronary atherosclerotic disease) follows with Dr. Pandey STEMI (ST elevation myocardial infarction) 2019 Surgical History History of colonoscopy History of esophagogastroduodenoscopy (EGD) S/P vasectomy H/O oral surgery Family History Mother Brain cancer Other Family history non-contributory Denies family history of Prostate cancer Colorectal cancer Social History Smoking Status: Former smoker Tobacco Type: E-cigarettes / Vaping Second Hand Exposure: No; Do You Dip or Chew Tobacco: No; Hx Alcohol Use: No Hx Substance Use: No Preferred Language: Romansh Communication Ability: Effective Visual Impairment: No Limitations Hearing Ability: Normal Knock Out Hand Required: No Beliefs That Will Affect Care: None marital status: Current Living Situation: Spouse current occupational status: employed current occupation: Nurse [employer] Feels Safe at Home: Yes Safety Concerns: Feels Safe At This Time Assistive Devices: Denture - Upper and Glasses Review of Systems Review of Systems: Detailed review of system was done and pertinent positives and negatives are mentioned above. Physical Exam Constitutional: WD/WN, vitals as above no acute distress Eyes: + anicteric sclerae Neck: normal visual inspection Respiratory: Auscultation: lungs clear to auscultation bilaterally Gastrointestinal (Abdomen): Inspection/Auscultation: abdomen normal to inspection Musculoskeletal: Extremities: extremities normal to inspection Neurologic: + confused Motor/Sensory: no tremor b/l LE weakness Psychiatric: Orientation: alert and oriented x 3 Affect: euthymic affect Results & Data Vital Signs (Past 12 Hours) Vital Signs Temp Pulse Pulse Resp BP Pulse Ox O2 Del Method 10/30/24 08:53 Room Air 10/30/24 08:14 36.6 C 95 H 20 126/47 L 100 Room Air 10/30/24 08:03 36.5 C 95 H 24 114/63 98 Room Air 10/30/24 03:17 36.3 C L 93 H 16 106/55 L 95 Room Air 10/29/24 22:40 98 H 10/29/24 22:20 36.6 C 104 H 20 119/55 L 97 Room Air PG Care Time/CCT Total # of Minutes Spent Total Time Spent with Patient: Total time spent is greater than 50% in coordination of care (as documented) at patient's floor/unit and/or counseling patient: Coding Level of Care Code 74865 INT INP/OBS CARE 3/75MIN Diagnoses МАРИНА (acute kidney injury) N17.9 Metabolic acidosis with increased anion gap and reduced excretion of inorganic acids E87.20 Acute hyponatremia E87.1 Abnormal MRI, thoracic spine R93.7 Bilateral leg paresthesia R20.2
--- NOTE | 2024-10-30 10:10 | Orthopedic Progress Note ---
Date of Service October 30, 2024 Subjective Patient seen and examined, notes roughly similar symptoms as on Wednesday, more so in terms left leg being affected than the right. Patient is able to flex the left hip, extend left knee, remainder motor unchanged, right leg half grade stronger than left in the 4+ to 5 range. Impression: Current electrolyte imbalance, discussed with anesthesia, medicine and nephrology, our plan will be to wait several hours and treat acidosis with new labs tween 12:01 PM and then reassess for potential surgery today. These aspects were discussed and explained to the patient along with a rediscussion of the overall surgical plan. Review of Systems All systems reviewed & are unremarkable except as noted in HPI & below. Physical Exam . Results & Data Results & Data Laboratory Results . Diagnostic Findings . PG Care Time/CCT Total # of Minutes Spent Total Time Spent with Patient: Total time spent is greater than 50% in coordination of care (as documented) at patient's floor/unit and/or counseling patient: Coding Level of Care Code 84354 SUB INP/OBS CARE 3/50MIN
[2024-10-30] MEDS: BUPIVACAINE/EPINEPHRINE 0.5% MPF 1:200,000 30 ML VIAL ONE (10:14)
[2024-10-30] MEDS: GELATIN SPONGE 12-7MM ONE (10:14)
[2024-10-30] MEDS: VANCOMYCIN HCL 1000MG/20ML VIAL ONE (10:14)
[2024-10-30] MEDS: SODIUM BICARBONATE 8.4% 150 MEQ in DEXTROSE 5% 1,000 ML IV SCH ×2 (10:16→11:29)
[2024-10-30] MEDS: THROMBIN 5000 UNITS KIT ONE (10:16)
[2024-10-30] MEDS: SODIUM CHLORIDE 3 % 100mL BOLUS (from 3% 500mL bag) IV SCH (10:41)
--- NOTE | 2024-10-30 10:48 | XRay Report ---
XR thoracic spine 3V routine CLINICAL HISTORY: disc herniation COMPARISON STUDY: No prior radiographs FINDINGS: AP and lateral views of the thoracic spine demonstrate multilevel degenerative change in th e mid and lower thoracic spine manifested by disc space narrowing and anterior osteophytes. There is no evidence of acute compression fracture. There is no paraspinous mass or swelling. There are pedicl es are intact. IMPRESSION: Multilevel degenerative change in the mid and lower thoracic spine. ACT 112: Negative or not required by law. Electronically signed by: Philly Cameron M.D. 10/30/2024 10:46 AM
--- NOTE | 2024-10-30 10:52 | XRay Report ---
XR lumbar spine 2-3V CLINICAL HISTORY: weakness lower extremities COMPARISON STUDY: None FINDINGS: 3 views of the lumbar spine demonstrate a very mild levoscoliosis centered at L2-L3. There are rudimentary 12th ribs. The last vertebral body is transitional which I will designate as a sacral ized L5 with a cyst incompletely developed disc space and a unilateral left-sided transverse process fusion with the sacrum. There is evidence of degenerative disc disease of mild severity throughout the lumbar spine primarily manifested by anterior osteophytes. There is also a slight degenerative retrolisthesis of L2 on L3 a ssociated with mild disc space narrowing. IMPRESSION: Transitional vertebra which can result in back pain. Mild degenerative disc disease note d at multiple levels most pronounced at L2-3. ACT 112: Negative or not required by law. Electronically signed by: Philly Cameron M.D. 10/30/2024 10:50 AM
[2024-10-30] MEDS: LORazepam 2 MG/1 ML VIAL IV STA (11:27)
--- NOTE | 2024-10-30 12:21 | Hospitalist Progress Note ---
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 Trying to optimize him medically for surgery Decadron did not help Decadron has been discontinued today. Managing metabolic acidosis, hyponatremia, acute kidney injury with clinical resource nurse [facility] been informed that if the surgery is emergent, he can be taken to the OR at any time and the medical team along with nephrology will take care of the medical problems at a later time. However if the surgery can wait we would like to try to treat the metabolic acidosis and hyponatremia noted to medically optimize him for surgery. Plan is to treat him with bicarb drip 3% saline and to repeat labs at 1 PM. Surgery now tentatively planned for 2 PM (2) Acute kidney injury: Plan: - Baseline creatinine 1.1, 1.5 on admission Patient did not respond to hydration Creatinine worse at 2.3 now Metabolic acidosis due to acute kidney injury Nephrology involved Treating with bicarb drip and attempt to optimize prior to surgery Nephrology ordered repeat labs at 1 PM Hyponatremia being treated with hypertonic saline per nephrology Patient is not oliguric or anuric Renal ultrasound was negative (3) Elevated troponin: Plan: Acute - No chest pain, EKG without acute ST-T wave changes -Troponin peaked at 67 -Echocardiogram shows hypokinesis of inferior wall which is an old finding. Patient has known coronary artery disease with history of ST elevation [place] in 2019 with drug-eluting stent in RCA. Likely demand ischemia - Continue aspirin and metoprolol - Will be on monitored unit, obtain EKG prn chest pain (4) Type 2 diabetes mellitus: Plan: Chronic - On ozempic chronically as outpatient - Diabetic diet ordered, ha1c 5.4% on 10/23/24 - Accuchecks ac and hs ordered in setting of IV steroid administration, Fingersticks running high. Will add sliding scale insulin. Pharmacy consulted Plan Other chronic medical problems: 1. Gastric ulcer history - change omeprazole to protonix per hospital formulary 2. BPH - continue tamsulosin [facility] team has been informed that if his neurological condition demands emergent surgery, he can be taken to the OR at any time. If it can wait, we would like to be able to optimize him for surgery by treating his metabolic acidosis, hyponatremia and metabolic acidosis. Admission and Anticipated Discharge Date Admission Date: October 27, 2024 Subjective Patient was seen and examined at 10:55 AM. He went to the OR and was sent back to his room because of lab abnormalities. He is now getting drips per n ephrology. The patient is accompanied by his significant other in the room. He is very anxious and is requesting Ativan. He says that his leg weakness is slightly worse today. Noted that his creatinine went up from 2 yesterday to 2.3 today. His sodium went down from 126-125 today. He also has a bicarb level of 12 today. I got a call from the clinical resource nurse at 8:29 AM who had ordered 3% saline in hopes of administering prior to OR. However, we were informed that the patient was already taken to the OR before the orders were placed. I was later informed that the patient was sent back from the OR so we can work on his labs. Review of Systems Review of Systems: All systems reviewed & are unremarkable except as noted in Subjective Physical Exam Physical Exam: General: Awake, conversant. Very anxious appearing. Heart: S1, S2/regular rate and rhythm, no murmur rubs or gallops Lungs: Clear to auscultation bilaterally. Normal effort Abdomen: Soft/nontender/nondistended. No hepatosplenomegaly Extremities: No clubbing/cyanosis. No edema Behavior: Appropriate, cooperative Results & Data Results & Data Vital Signs (Past 12 Hours) Vital Signs Temp Pulse Resp BP Pulse Ox O2 Del Method 10/30/24 11:23 36.8 C 64 20 102/67 97 Nasal Cannula 10/30/24 08:53 Room Air 10/30/24 08:14 36.6 C 95 H 20 126/47 L 100 Room Air 10/30/24 08:03 36.5 C 95 H 24 114/63 98 Room Air 10/30/24 03:17 36.3 C L 93 H 16 106/55 L 95 Room Air Laboratory Results Abnormal lab results 10/29/24 10/29/24 10/29/24 Range/Units 15:14 16:07 20:06 WBC (4.8-10.8) K/ul RBC (4.70-6.10) M/uL Hgb (14.0-18.0) g/dl Hct (42.0-52.0) % MPV (9.4-12.4) fL Sodium 126 L (136-145) mmol/L Chloride (98-107) mmol/L Carbon Dioxide 17 L (21-32) mmol/L Anion Gap (3-11) BUN 43 H D (6-23) mg/dl Creatinine 2.02 H D (0.6-1.4) mg/dl BUN/Creatinine Ratio 21.3 H (10-20) Glucose 165 H (70-99(Fasting)) mg/dl POC Glucose 164 H 165 H (70-99) mg/dl Calcium (8.6-10.3) mg/dl Urine Osmolality (500-800) mOsm/kg 10/29/24 10/30/24 10/30/24 Range/Units Unknown 05:59 06:04 WBC 18.32 H (4.8-10.8) K/ul RBC 4.60 L (4.70-6.10) M/uL Hgb 13.2 L (14.0-18.0) g/dl Hct 39.1 L (42.0-52.0) % MPV 8.8 L (9.4-12.4) fL Sodium 125 L (136-145) mmol/L Chloride 96 L (98-107) mmol/L Carbon Dioxide 12 L (21-32) mmol/L Anion Gap 17 H (3-11) BUN 56 H (6-23) mg/dl Creatinine 2.34 H D (0.6-1.4) mg/dl BUN/Creatinine Ratio 23.9 H (10-20) Glucose 177 H (70-99(Fasting)) mg/dl POC Glucose 179 H (70-99) mg/dl Calcium 8.4 L (8.6-10.3) mg/dl Urine Osmolality 471 L (500-800) mOsm/kg 10/30/24 10/30/24 Range/Units 08:37 12:01 WBC (4.8-10.8) K/ul RBC (4.70-6.10) M/uL Hgb (14.0-18.0) g/dl Hct (42.0-52.0) % MPV (9.4-12.4) fL Sodium (136-145) mmol/L Chloride (98-107) mmol/L Carbon Dioxide (21-32) mmol/L Anion Gap (3-11) BUN (6-23) mg/dl Creatinine (0.6-1.4) mg/dl BUN/Creatinine Ratio (10-20) Glucose (70-99(Fasting)) mg/dl POC Glucose 176 H 158 H (70-99) mg/dl Calcium (8.6-10.3) mg/dl Urine Osmolality (500-800) mOsm/kg PG Care Time/CCT Total # of Minutes Spent Total Time Spent with Patient: Total time spent is greater than 50% in coordination of care (as documented) at patient's floor/unit and/or counseling patient: Coding Level of Care Code 60960 SUB INP/OBS CARE 2/35MIN Diagnoses Bilateral leg numbness R20.0 Acute kidney injury N17.9 Elevated troponin R79.89 Type 2 diabetes mellitus E11.9
[2024-10-30 13:13] LABS: Marijuana Quant, GCMS Urine 1025 ng/mL (<5)
[2024-10-30 13:41] LABS: Albumin Level 4.3 gm/dl (3.4-5.0); BUN Creatinine Ratio 24.3 (10-20); Calcium 8.3 mg/dl (8.6-10.3); Creatinine Clr Calc Pharmacy 42.5 ml/min; Phosphorus 5.1 mg/dl (2.5-4.9); Potassium 4.9 mmol/L (3.5-5.1)
[2024-10-30] MEDS ORDERED: PROMETHAZINE HCL 6.25 MG in SODIUM CHLORIDE 0.9% 50 ML IV PRN (14:06)
[2024-10-30] MEDS ORDERED: ONDANSETRON INJ 2 MG/ML 2 ML VIAL IV PRN ×2 (14:06→22:01)
[2024-10-30] MEDS ORDERED: ePHEDrine sulfate 50 MG/ML AMP IV PRN (14:06)
[2024-10-30] MEDS ORDERED: fentaNYL citrate PF 100 MCG/2 ML VIAL IV PRN (14:06)
[2024-10-30] MEDS ORDERED: HYDROmorphone INJ 2 MG/ML SYR/VIAL IV PRN (14:06)
[2024-10-30] MEDS ORDERED: ATROPINE SULFATE 0.1 MG/ML 10ML SYR IV PRN (14:06)
--- NOTE | 2024-10-30 14:15 | Anesthesiology Consultation ---
Date of Service October 30, 2024 Assessment & Plan (1) Encounter for pre-operative examination: Chart Review Chart Review: Acceptable Risk for Surgery and Patient NOT seen in Pre Admission Testing Consults Requested none History Surgery Operation Date: 10/30/24 07:00 Proposed Procedures p T6-T9 Instrumention and Fusion with Navigation,T7-T8 Decompression - Sriram Felipe MD Height/Weight Height: 5 ft 10 in Weight: 110.81 kg Allergies Allergy/AdvReac Type Severity Reaction Status Date / Time bee venom protein (honey bee) Allergy Intermediate SWELLING Verified 10/23/24 15:41 Medications Home Medications Medication Instructions Recorded Confirmed Last Taken aspirin 81 mg chewable tablet 81 mg PO QAM 05/24/19 10/27/24 10/27/24 tamsulosin 0.4 mg capsule 0.4 mg PO HS 10/13/23 10/27/24 12/16/23 Medical Marijuana 1 dose PO DIRECTED PRN Anxiety 12/06/23 10/27/24 12/11/23 semaglutide 0.25 mg or 0.5 mg (2 0.5 mg (0.736 mL) subcut WK #3 mL 12/29/23 10/27/24 Unknown mg/3 mL) subcutaneous pen injector (Ozempic) metoclopramide HCl 5 mg tablet 5 mg PO TID #90 tabs 08/28/24 10/27/24 Unknown (Reglan) epinephrine 0.3 mg/0.3 mL 0.3 mg (0.3 mL) IM Q4H PRN 10/23/24 10/27/24 Unknown injection, auto-injector anaphylaxis #2 ea losartan 25 mg tablet 12.5 mg (1/2 x 25 mg) PO QAM #30 10/23/24 10/27/24 Unknown tabs metoprolol succinate 25 mg 12.5 mg (1/2 x 25 mg) PO HS #30 10/23/24 10/27/24 Unknown tablet,extended release 24 hr tabs omeprazole 20 mg tablet,delayed 20 mg PO DAILY 10/27/24 10/27/24 Unknown release Active Medications Generic Name Dose Route Start Last Admin Trade Name Freq PRN Reason Stop Dose Admin Acetaminophen 650 mg 10/27/24 19:19 10/29/24 21:01 Acetaminophen 325 Mg Tab PO 11/26/24 19:18 650 mg Q4H PRN Administration Pain or Fever Aspirin 81 mg 10/28/24 09:00 10/30/24 07:30 Aspirin 81 Mg Chew PO 11/27/24 08:59 Not Given QAM MATTHEW Enoxaparin Sodium 40 mg 10/27/24 21:00 10/29/24 22:02 Enoxaparin Inj 40 Mg/0.4 Ml Syr SQ 11/26/24 20:59 Not Given QPM MATTHEW Sodium Bicarbonate 150 meq/ 1,150 mls @ 200 mls/hr 10/30/24 10:15 10/30/24 11:29 Dextrose IV 10/30/24 15:59 200 mls/hr .Q5H45M MATTHEW Administration Insulin Aspart 0 units 10/30/24 06:00 10/30/24 12:11 Insulin Aspart Per Unit Charge SC 11/29/24 05:59 Not Given Q6 MATTHEW Lorazepam 0.5 mg 10/30/24 00:26 10/30/24 01:00 Lorazepam 2 Mg/1 Ml Vial IV 11/29/24 00:25 0.5 mg HS PRN Administration Insomnia Metoclopramide HCl 5 mg 10/27/24 21:00 10/30/24 12:47 Metoclopramide Hcl 5 Mg Tablet PO 11/26/24 20:59 Not Given TID MATTHEW Metoprolol Succinate 12.5 mg 10/27/24 21:00 10/29/24 21:04 Metoprolol Succ 25mg Ext Rel Tab PO 11/26/24 20:59 12.5 mg HS MATTHEW Administration Pantoprazole Sodium 40 mg 10/28/24 09:00 10/30/24 07:30 Pantoprazole 40 Mg Tab PO 11/27/24 08:59 Not Given DAILY MATTHEW Pregabalin 75 mg 10/27/24 20:00 10/30/24 12:47 Pregabalin 75 Mg Cap PO 11/26/24 19:59 Not Given Q8H MATTHEW Tamsulosin HCl 0.4 mg 10/27/24 21:00 10/29/24 21:03 Tamsulosin Hcl 0.4 Mg Cap PO 11/26/24 20:59 0.4 mg HS MATTHEW Administration NPO Date Last Intake of Fluids: 10/29/24 Time Last Intake of Fluids: 23:45 Date Last Intake of Solids: 10/29/24 Time Last Intake of Solids: 21:00 Past Medical History Medical History (Updated 10/30/24 @ 14:10 by Jhon Sin MD) Acute hyponatremia Metabolic acidosis with increased anion gap and reduced excretion of inorganic acids Numbness МАРИНА (acute kidney injury) Elevated troponin Bilateral leg weakness Bilateral leg paresthesia Obesity Gastric ulcer Acid reflux Anxiety History of COVID-19 08/2021 > resolved Diabetes mellitus, type 2 Seizure hx as child, none since age 8 Chronic obstructive pulmonary disease no recent use of inhaler, controlled Cerebral hemorrhage HX-03/2019 STEMI (ST elevation myocardial infarction) 2019 CAD s/p VA in 2019 s/p PCI and stenting Sodium dropped further to 125 associated with metabolic acidosis and worsening kidney function. Has been having decent urine output. Volume status stable. --200 mL of 3% saline bolus now and then start on bicarb drip at 200 mL/h --Repeat kidney function and electrolyte at 1 PM. if serum sodium and bicarbonate improved, okay to go ahead with spine surgery this afternoon but if progressive worsening of kidney function and electrolyte, may need to hold surgery till tomorrow unless there is any urgency and concern for serious neurological dysfunction. (surgeon states case is urgent given his progressive neurological decline). 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 Trying to optimize him medically for surgery Decadron did not help Decadron has been discontinued today. Managing metabolic acidosis, hyponatremia, acute kidney injury with community assistant [facility] been informed that if the surgery is emergent, he can be taken to the OR at any time and the medical team along with nephrology will take care of the medical problems at a later time. However if the surgery can wait we would like to try to treat the metabolic acidosis and hyponatremia noted to medically optimize him for surgery. Plan is to treat him with bicarb drip 3% saline and to repeat labs at 1 PM. Surgery now tentatively planned for 2 PM (2) Acute kidney injury: Plan: - Baseline creatinine 1.1, 1.5 on admission Patient did not respond to hydration Creatinine worse at 2.3 now Metabolic acidosis due to acute kidney injury Nephrology involved Treating with bicarb drip and attempt to optimize prior to surgery Nephrology ordered repeat labs at 1 PM Hyponatremia being treated with hypertonic saline per nephrology Patient is not oliguric or anuric Renal ultrasound was negative (3) Elevated troponin: Plan: Acute - No chest pain, EKG without acute ST-T wave changes -Troponin peaked at 67 -Echocardiogram shows hypokinesis of inferior wall which is an old finding. Patient has known coronary artery disease with history of ST elevation VA in 2019 with drug-eluting stent in RCA. Likely demand ischemia - Continue aspirin and metoprolol - Will be on monitored unit, obtain EKG prn chest pain Past Family History Family History Mother Brain cancer Other Family history non-contributory Denies family history of Prostate cancer Colorectal cancer Past Surgical History Surgical History History of colonoscopy History of esophagogastroduodenoscopy (EGD) S/P vasectomy H/O oral surgery Social History Smoking Status: Former smoker tobacco type: cigarettes Do You Dip or Chew Tobacco: No Hx Alcohol Use: No Hx Substance Use: No substance use type: marijuana Substance Use Type Other:: medical card >2x per week approx Last Used Substance Other:: 10/13/2023 Physical Exam Vital Signs Last Vital Signs Temp 36.8 C 10/30/24 11:23 Pulse 64 10/30/24 11:23 Resp 20 10/30/24 11:23 BP 102/67 10/30/24 11:23 Pulse Ox 97 10/30/24 11:23 O2 Del Method Nasal Cannula 10/30/24 11:23 O2 Flow Rate 2 10/27/24 15:17 Testing Laboratory Results 10/30/24 06:04 10/30/24 13:13 Urine Color Yellow 10/27/24 16:45 Urine Appearance Clear (Clear) 10/27/24 16:45 Urine pH 5.0 (4.5-7.5) 10/27/24 16:45 Ur Specific [place] 1.025 (1.000-1.030) 10/27/24 16:45 Urine Protein Negative (Negative) 10/27/24 16:45 Urine Glucose (UA) Negative (Negative) 10/27/24 16:45 Urine Ketones Negative (Negative) 10/27/24 16:45 Urine Nitrite Negative (Negative) 10/27/24 16:45 Ur Leukocyte Esterase Negative (Negative) 10/27/24 16:45 Blood Type A Positive 10/30/24 07:53 Antibody Screen NEGATIVE 10/30/24 07:53 10/30/24 10/30/24 10/30/24 12:01 08:37 05:59 POC Glucose 158 H 176 H 179 H Electrocardiogram Date: 10/27/24 DICTATED BY: Isael Ferrell MD Test Reason : Blood Pressure : */* mmHG Vent. Rate : 106 BPM Atrial Rate : 106 BPM P-R Int : 146 ms QRS Dur : 114 ms QT Int : 358 ms P-R-T Axes : 37 1 150 degrees QTcB Int : 475 ms Sinus tachycardia Left bundle branch block Abnormal ECG When compared with ECG of 13-Oct-2023 12:06, Vent. rate has increased by 41 bpm Chest X-Ray Date: 10/27/24 XR chest 1V portable CLINICAL HISTORY: sob w/ exertion COMPARISON STUDY: 06/30/2023 FINDINGS: Stable mild cardiomegaly without pulmonary vascular congestion. There are faint reticular and patchy opacities at the left mid and lower lung. No other consolidation or pleural effusion. No pneumothorax. IMPRESSION: Faint opacities at the left lung could represent artifact or early pneumonia. Echocardiogram Date: 10/28/24 Normal LV size and systolic function. EF 60-65% Hypokinesis of the base to mid inferior wall. Severe LVH. Mildly dilated RV with normal systolic function. Moderate LAD. Mild right atrial dilation. Mild mitral regurg. Mild pulmonary HTN. Estimated RVSP 46mmHg.
--- NOTE | 2024-10-30 14:16 | Orthopedic Progress Note ---
Date of Service October 30, 2024 Subjective Patient notes continued slow worsening of neural compressive symptoms including less sensation in the left leg and also decreased motor function relative to ambulation. Exam reveals him to have decreased sensation in the T8 level inferiorly but more pronounced left lower extremity diffusely. Grade 4 hip flexion and knee extension but decreased versus yesterday. Sodium now 28. Impression: Thoracic spinal cord stenosis with developing paralysis. Patient now cleared and felt to be optimized as best as possible for surgical decompression and fusion. This is an emergent situation as the patient has had continued slow decline over the last 2 days and there is no guarantee this will stabilize, or his medical situation improve. In discussion with anesthesia, nephrology and hospitalist, the decision is to move ahead with the surgery to avoid any additional decline with ICU placement postoperatively. Review of Systems All systems reviewed & are unremarkable except as noted in HPI & below. Physical Exam . Results & Data Results & Data Laboratory Results . Diagnostic Findings . PG Care Time/CCT Total # of Minutes Spent Total Time Spent with Patient: Total time spent is greater than 50% in coordination of care (as documented) at patient's floor/unit and/or counseling patient: Coding Level of Care Code 16893 SUB INP/OBS CARE 2/35MIN
--- NOTE | 2024-10-30 14:29 | History & Physical Bridge Note ---
Date of Service October 30, 2024 History & Physical Bridge Note I have examined the patient, reviewed the History & Physical and in the interval since the performance of the History & Physical I have noted the following changes of clinical significance: no changes noted T7-T8 laminectomy posterior decompression, T6-T9 posterior instrumentation arthrodesis.
[2024-10-30] MEDS ORDERED: ALBUMIN HUMAN 5% 12.5 GM/250 ML VIAL IV ONE (14:32)
[2024-10-30] MEDS ORDERED: VASOPRESSIN 20 UNIT/ML VIAL ONE (15:03)
[2024-10-30] MEDS: ceFAZolin 2000MG 2,000 MG/15 ML SYR IV ONE ×2 (15:29→19:29)
[2024-10-30] MEDS ORDERED: SODIUM CHLORIDE 0.9% 100 ML IV PRN ×2 (16:16→23:41)
[2024-10-30] MEDS ORDERED: SODIUM CHLORIDE 0.9% 50 ML IV PRN ×2 (16:16→23:41)
[2024-10-30] MEDS ORDERED: PHENYLEPHRINE HCL 10 MG/ML VIAL ONE ×3 (16:50→20:04)
[2024-10-30] MEDS ORDERED: SODIUM CHLORIDE 0.9% PF INJ 10 ML VIAL ONE (16:50)
[2024-10-30] MEDS ORDERED: PROPOFOL IV EMULSION 10 MG/ML 100 ML VIAL IV ONE ×2 (17:33)
[2024-10-30] MEDS ORDERED: ceFAZolin 330 MG/ML 1 GM VIAL ONE (19:16)
[2024-10-30] MEDS ORDERED: TRANEXAMIC ACID / 0.7% NACL 1000MG/100ML BAG IV ONE (20:39)
[2024-10-30] MEDS ORDERED: SUGAMMADEX SODIUM 200 MG/2 ML VIAL IV ONE (21:19)
[2024-10-30] MEDS: FLOSEAL HEMOSTATIC MATRIX 10ML TOP ONE (21:28)
[2024-10-30 21:41] LABS: Hematocrit (blood only) 32.8 % (42.0-52.0); Hemoglobin 10.5 g/dl (14.0-18.0)
[2024-10-30] MEDS ORDERED: HYDROmorphone INJ 0.5 MG/0.5 ML SYR IV PRN (22:01)
[2024-10-30] MEDS ORDERED: FAMOTIDINE 20 MG TAB PO PRN (22:01)
[2024-10-30] MEDS ORDERED: PROMETHAZINE 12.5 MG/50.5 ML BAG IV PRN (22:01)
[2024-10-30] MEDS ORDERED: ALUMINUM/MAGNESIUM SUSP 30 ML UDC PO PRN (22:01)
[2024-10-30] MEDS ORDERED: ONDANSETRON 4 MG OD TAB PO PRN (22:01)
[2024-10-30] MEDS ORDERED: oxyCODONE/ACETAMINOPHEN 5mg/325mg TAB PO PRN (22:01)
[2024-10-30] MEDS ORDERED: hydrOXYzine HCl 25 MG TAB PO PRN (22:01)
[2024-10-30] MEDS ORDERED: DO NOT ADMINISTER FLU VACCINE PRN (22:01)
[2024-10-30] MEDS ORDERED: bisacodyL 10 MG SUPP PR PRN (22:01)
[2024-10-30] MEDS ORDERED: ACETAMINOPHEN 1,000 MG/100 ML VIAL IV PRN (22:01)
[2024-10-30] MEDS ORDERED: ACETAMINOPHEN 500 MG TAB PO PRN (22:01)
[2024-10-30] MEDS ORDERED: DO NOT ADMINISTER PNEUMOCOCCAL VACCINE PRN (22:01)
[2024-10-30] MEDS ORDERED: SOD PHOSPHATE/SOD BIPHOSPHATE ENEMA 132 ML BTL PR PRN (22:01)
[2024-10-30] MEDS ORDERED: LORazepam 2 MG/1 ML VIAL IV PRN (22:01)
[2024-10-30] MEDS ORDERED: diphenhydrAMINE Capsule 25 MG CAP PO PRN (22:01)
[2024-10-30] MEDS ORDERED: METOCLOPRAMIDE HCL INJ 5 MG/ML 2 ML VIAL IV PRN (22:01)
[2024-10-30] MEDS ORDERED: NALOXONE HCL 0.4 MG/1 ML VIAL/CARP IV PRN (22:01)
[2024-10-30] MEDS ORDERED: MAGNESIUM HYDROXIDE SUSP 30 ML UDC PO PRN (22:01)
[2024-10-30] MEDS ORDERED: LORazepam 0.5 MG TAB PO PRN (22:01)
--- NOTE | 2024-10-30 22:01 | Post Operative Brief Note ---
PG Immediate Post Op with CF Date of Surgery October 30, 2024 Pre & Post Diagnosis Operation Date: 10/30/24 07:00 Pre-Op Diagnosis: Thoracic Spinal Cord Stenosis with Developing Paralysis Post-Op Diagnosis: Thoracic Spinal Cord Stenosis with Developing Paralysis I identified the patient and participated in the time-out.: Yes Procedure Operation Date: 10/30/24 07:00 Actual Procedures p T6-T9 Instrumention and Fusion with Navigation,T7-T8 Decompression(Not Applicable) - Sriram Felipe MD Surgeon Sriram Felipe MD Channel Man none Estimated Blood Loss 1,000 Findings Consistent with Post-Op Diagnosis Drains Mejia Catheter (Pl)
[2024-10-30] MEDS: fentaNYL citrate 2,500 MCG/250 ML BAG IV SCH (22:30)
[2024-10-30] MEDS ORDERED: STAT IV Infusion **Titration per Protocol STA ×2 (22:30→23:37)
[2024-10-30] MEDS: propofoL 1,000 MG/100 ML VIAL IV SCH (22:30)
[2024-10-30] MEDS ORDERED: fentaNYL BOLUS from BAG IV PRN (22:30)
[2024-10-30] MEDS ORDERED: PROPOFOL BOLUS FROM BAG IV PRN (22:30)
[2024-10-30] MEDS: LACTATED RINGER'S 1,000 ML IV ONE ×2 (22:45→23:20)
[2024-10-30] MEDS: fentaNYL citrate PF 100 MCG/2 ML VIAL IV STA (22:45)
[2024-10-30] MEDS: MIDAZOLAM HCL 1 MG/ML 2ML VIAL IV STA (22:45)
[2024-10-30] MEDS: PHENYLEPHRINE/NSS 25 MG/250 ML BAG IV SCH (23:00)
[2024-10-30 23:43] LABS: Albumin Level 3.6 gm/dl (3.4-5.0); BUN Creatinine Ratio 21.8 (10-20); Calcium 6.5 mg/dl (8.6-10.3); Creatinine Clr Calc Pharmacy 35.9 ml/min; Phosphorus 9.7 mg/dl (2.5-4.9); Potassium 5.7 mmol/L (3.5-5.1)
--- NOTE | 2024-10-30 23:55 | Anesthesiology Progress Note ---
Date of Service October 30, 2024 Anesthesia Post Procedure Vital Signs Vital Signs: Temp Pulse Pulse Pulse Resp BP BP 10/30/24 23:33 63 23 10/30/24 14:16 36.7 C 93 H 30 H 109/44 L 10/30/24 13:12 96 H 10/30/24 11:23 36.8 C 64 20 102/67 10/30/24 08:53 10/30/24 08:14 36.6 C 95 H 20 126/47 L 10/30/24 08:03 36.5 C 95 H 24 114/63 10/30/24 06:01 95 H 10/30/24 03:17 36.3 C L 93 H 16 106/55 L Pulse Ox O2 Del Method 10/30/24 23:33 97 10/30/24 14:16 95 Room Air 10/30/24 13:12 10/30/24 11:23 97 Nasal Cannula 10/30/24 08:53 Room Air 10/30/24 08:14 100 Room Air 10/30/24 08:03 98 Room Air 10/30/24 06:01 10/30/24 03:17 95 Room Air Transfer of Care Handoff Completed per policy Notes Mental Status: see notes below Nausea / Vomiting: adequately controlled Pain: adequately controlled Airway Patency, RR, SpO2: see Notes below BP & HR: stable & adequate and see Notes below Hydration State: stable & adequate Anesthetic Complications: no major complications apparent Notes: patient kept intubated due to high ventilation rate and though moving was not awake to respond to commands. pt stable in ICU on ventilator and sedation.
[2024-10-30 23:56] LABS: Hematocrit (blood only) 32.7 % (42.0-52.0); Hemoglobin 10.1 g/dl (14.0-18.0)
--- NOTE | 2024-10-31 00:08 | XRay Report ---
Exam(s): XR CXR 1 VIEW EXAM: XR Chest, 1 View CLINICAL HISTORY: ETT, left lung diminished. TECHNIQUE: Frontal view of the chest. COMPARISON: 10/27/2024 FINDINGS: Endotracheal tube is presently 4.5 cm above the dayna. Interval thoracic inlet surgical clips and placement of mid thoracic spine pedicle screws and posterior vertical posterior fusion rods. Cardiomediastinal is mildly enlarged. Increased pulmonary vascular congestion. Hypoventilation with increased bibasilar atelectasis. Possible small pleural effusions. No pneumothorax. Otherwise no change. IMPRESSION: Endotracheal tube tip above the dayna. Postsurgical changes as described above. Hypoventilation with increased bibasilar atelectasis. Pulmonary vascular congestion. Possible small pleural effusions. Electronically signed by: Henri Engle M.D. 10/31/24 00:07 AM
--- NOTE | 2024-10-31 00:32 | Procedure Note ---
Procedure Note Date of Service October 31, 2024 INTERNAL JUGULAR CENTRAL LINE PROCEDURE NOTE: Procedure: Internal Jugular Central Line Placement Attending: Dr. Clements APC: Noa Hernandez PA-C Indication: Central Drug Administration, Poor Venous Access, Multiple Lab Draws Necessary, etc. Anesthesia: Lidocaine 1% Consent was signed and placed on the chart prior to procedure. Indication, risks, and benefits were explained at length. A time-out was completed verifying correct patient, procedure, site, positioning, and implants(s) or special equipment if applicable. Patients L Neck was cleansed and draped in the typical sterile fashion using Chloraprep. The Internal Jugular Vein and Carotid Artery were identified using ultrasound. The superficial tissue was anesthetized using 5 mL of 1% lidocaine without epinephrine under direct visualization with the ultrasound. After adequate anesthetization was achieved, the Internal Jugular vein was cannulated under direct ultrasound guidance using an introducer needle on a syringe. Good venous blood return was maintained prior to removal of syringe from introducer needle. Using Seldinger Technique, a guide wire was advanced through the introducer needle without resistance. The introducer needle was removed and ultrasound images were obtained of the guide wire within the Internal Jugular Vein. A small incision was made in penetrating fashion at the guide wire insertion site utilizing an 11 blade scalpel. The dilator was advanced to the vessel without resistance. The dilator was exchanged for the triple lumen catheter which was advanced into the vessel without resistance. The guide wire was removed intact from the catheter without issue. Claves were placed on each catheter tip with confirmation of good blood flow from each lumen. Each port was easily flushed with sterile saline. The catheter was placed at 20 cm and sutured in place. BioPatch was applied to the catheter and a sterile Tegaderm dressing was applied over the catheter with careful attention to sterility. Patient tolerated procedure well. No immediate complications were met. Post procedure x-ray was completed, placement was appropriate and no pneumothorax was noted. Procedural Ultrasound Guidance: Procedure Date: 10/31/2024 Indication: CVC placement Attending: Dr. Clements APC: Noa Hernandez PA-C Artery AND Vein visualized: Y Compressible Vein: Y Guidewire or Short Catheter seen in vein prior to dilation: Y Line confirmed in Vein with ultrasound: Y [facility] Codes (Charges) Tubes, Drains, and Vasc Access Procedure 1: Tubes, Drains, and Vasc Access: [id number] Ultrasound Guidance For Vascular Procedure 2: Tubes, Drains, and Vasc Access: [id number] Insertion Of Non-tunneled Catheter Age 3 Yrs> Coding CPT Codes Tubes, Drains, and Vasc Access - Tubes, Drains, and Vasc Access: [id number] Ultrasound Guidance For Vascular ([id number]) Tubes, Drains, and Vasc Access - Tubes, Drains, and Vasc Access: [id number] Insertion Of Non-tunneled Catheter Age 3 Yrs> ([id number]) Additional Codes Date of Service (PG.[email or web address])
[2024-10-31] MEDS: LANTUS PER UNIT CHARGE SC SCH (00:46)
[2024-10-31] MEDS: STAT IV Infusion **Titration per Protocol STA (00:51)
[2024-10-31] MEDS: SODIUM BICARBONATE 8.4% 150 MEQ in DEXTROSE 5% 1,000 ML IV SCH (00:54)
[2024-10-31] MEDS: SODIUM BICARB 8.4% INJ 50 MEQ/50 ML SYR IV STA ×2 (00:55→03:25)
[2024-10-31] MEDS: SODIUM BICARB 8.4% INJ 50 MEQ/50 ML SYR IV ONE ×2 (00:55→03:25)
[2024-10-31] MEDS: NOREPINEPHRINE/D5W 4 MG/250 ML PLCT IV SCH (01:01)
[2024-10-31] MEDS: CALCIUM GLUCONATE 1,000 MG/60 ML BAG IV STA ×2 (01:15→01:29)
[2024-10-31] MEDS: POLYETHYLENE (MIRALAX) 17 GM PACK PO SCH (01:31)
--- NOTE | 2024-10-31 01:33 | XRay Report ---
EXAM: XR chest 1V portable CLINICAL HISTORY: Line placement. TECHNIQUE: An X-ray image of the chest is obtained in AP projection. COMPARISON: 10/27/2024. FINDINGS: An endotracheal tube seen with its tip within normal position, 3.8 cm above the dayna. New findings. Pulmonary Parenchyma: Prominent bronchovascular markings seen bilaterally likely due to pulmonary congestion. Blunting of the right costophrenic angle seen likely due to pleural effusion/thickening. The left costophrenic angle is not covered in the image. Heart and Mediastinum: Heart size and shape are normal. No mediastinal widening or masses. No hilar or mediastinal lymphadenopathy. Bony Thorax: Thoracic spinal fixation seen. Interval new finding. Soft Tissues: Soft tissues overlying the chest wall are unremarkable. IMPRESSION: 1. An endotracheal tube seen with its tip within normal position, 3.8 cm above the dayna. Satisfactory position. New findings. 2. Blunting of the right costophrenic angle seen likely due to pleural effusion/thickening. New findings. 3. Prominent bronchovascular markings seen bilaterally likely due to pulmonary congestion. Unchanged. 4. Thoracic spinal fixation seen. Interval new finding. 5. Clinical lab correlation and follow-up is advised. Electronically signed by Richard Ashton 10-31-2024 01:33 AM
[2024-10-31] MEDS ORDERED: STAT IV Infusion **Titration per Protocol STA (01:45)
[2024-10-31 01:50] LABS: iSTAT Art Bld Gas pCO2 Correct 28 mmHg (35-46); iSTAT Art Bld Gas pH Corrected 7.233 (7.35-7.45); iSTAT Arterial Blood Gas HCO3 12 meg/L (19-24); iSTAT Arterial Blood Gas pCO2 30 mmHg (35-46); iSTAT Arterial Blood Gas pH 7.21 (7.35-7.45); iSTAT Arterial Blood Gas pO2 141 mmHg (80-95); iSTAT Arterial Blood Gas pO2 C 133; iSTAT Carbon Dioxide 13 mmol/L (24-31); iSTAT FiO2 60 %; iSTAT Hematocrit 31 % (42-52); iSTAT Hemoglobin 10.5 g/dl (14.0-18.0); iSTAT Potassium 5.5 mmol/L (3.3-5.0); iSTAT Sample Type Arterial; iSTAT Site Art Line; iSTAT Sodium 128 mmol/L (135-144); iSTAT SpO2 94
[2024-10-31 01:59] LABS: Fibrinogen 103 mg/dl (184-400); INR 1.4 (0.9-1.1); Prothrombin Time 14.8 Seconds (9.0-12.0)
[2024-10-31] MEDS: VASOPRESSIN 20 UNITS in SODIUM CHLORIDE 0.9% 100 ML IV SCH (02:12)
--- NOTE | 2024-10-31 02:14 | Procedure Note ---
Procedure Note Date of Service October 31, 2024 ARTERIAL LINE PROCEDURE NOTE: Procedure: Arterial Line Placement Attending: Dr. Clements APC: Noa Hernandez PA-C Indication: Monitoring on Pressors/Frequent labs Anesthesia: Lidocaine 1% Verbal consent from at bedside. A time-out was completed verifying correct patient, procedure, site, positioning, and implant(s) or special equipment if applicable. Patients L wrist was prepped and draped in the usual sterile fashion. Ultrasound guidance was used to aid needle placement. A 20g Arrow arterial line was introduced into the L radial artery. Catheter was threaded, and the needle was removed with appropriate blood return. Good waveform was observed. The patient tolerated the procedure well. Site selection rationale: Diminutive radial artery on R side Blood Loss: Minimal Complications: None Procedural Ultrasound Guidance: Procedure Date: 10/31/2024 Indication: Line insertion Attending: Dr. Clements APC: Noa Hernandez PA-C Artery Identified: YES Complications: NONE Patient tolerated procedure: WELL Coding Additional Codes Date of Service ([email or web address].SURGERY)
--- NOTE | 2024-10-31 02:18 | Procedure Note ---
Procedure Note Date of Service October 31, 2024 ARTERIAL LINE PROCEDURE NOTE: Procedure: Arterial Line Placement Attending: Dr. Clements APC: Noa Hernandez PA-C Indication: Monitoring on Pressors/Frequent labs - Central blood pressure monitoring Anesthesia: Lidocaine 1% Verbal consent obtained from at bedside. A time-out was completed verifying correct patient, procedure, site, positioning, and implant(s) or special equipment if applicable. Patients L groin was prepped and draped in the usual sterile fashion. Ultrasound guidance was used to aid needle placement. A 20g Arrow arterial line was introduced into the artery. Catheter was threaded, and the needle was removed with appropriate blood return. Good waveform was observed. The patient tolerated the procedure well. Blood Loss: Minimal Complications: None Procedural Ultrasound Guidance: Procedure Date: 10/31/2024 Indication: Central blood pressure monitoring Attending: Dr. Clements APC: Noa Hernandez PA-C Artery Identified: YES Complications: NONE Patient tolerated procedure: WELL Coding Additional Codes Date of Service ([facility].SURGERY)
[2024-10-31] MEDS: MIDAZOLAM HCL 1 MG/ML 2ML VIAL ONE (02:20)
[2024-10-31] MEDS: fentaNYL citrate PF 100 MCG/2 ML VIAL ONE (02:20)
--- NOTE | 2024-10-31 02:20 | Critical Care Consultation ---
Date of Consultation October 31, 2024 Assessment & Plan (1) Acute renal failure (ARF): (2) Bilateral leg numbness: (3) Gastric ulcer: (4) Acute blood loss anemia: (5) History of spinal fusion: Plan Reason Critically Ill: 1. Shock, multifactorial 2. Acute blood loss anemia 3. Thoracic stenosis with paralysis s/p T6-T9 fusion and T7 decompression 4. МАРИНА on CKDIII with acute renal failure, prerenal azotemia 5. HAGMA 2/2 lactic acidosis 6. Acute respiratory failure due to inability to protect airway 7. Acute toxic metabolic encephalopathy 8. Coagulopathy, rule out DIC 9. Hyponatremia 10. Mild hyperkalemia 11. Concern for developing limb ischemia 12. Leukocytosis with neutrophil predominance, likely reactive Neuro - RASS GOAL -1 to -2 APAP PRN fever Continue propofol and fentanyl infusions Cardiac - Continue norepinephrine, neosynephrine, vasopressin for MAP goal > 65mmHg, wean as tolerated Post-procedure EKG without ischemia or arrhythmia CK pending to rule out limb ischemia Respiratory - Continue mechanical ventilation, SAT/SBT as clinically feasible SpO2 goal 92%. Noted history of COPD but no PFTs on file Pulmonary hygiene with respiratory driven protocol VAP protocol Serial ABG with ventilator optimization HOB 30 GI - Continue OGT to LIS Diet: Strict NPO. Will not start TF now SUP: PPI BID with history of gastric ulcer Bowel regimen: Miralax as able RENAL/LYTES - Nephrology on board, appreciate recommendations Sodium bicarbonate infusion 150mEq @ 150cc/hr Continue IVF resuscitation as ordered With significant pressor requirement and oligoanuria he may well require CRRT in the coming hours. Transfer to higher level of care Replete electrolytes as indicated Mejia for accurate I/Os Renal ultrasound negative ENDO - No acute concerns. Consider random cortisol level BG 140-180 per SCCM guidelines ISS if needed while inpatient HEME - Serial H/H 1U PRBC post-operatively Fibrinogen 103, give 1 of cryo Rule out DIC, remainder of labs pending ID - Perioperative antibiotics per surgical colleagues Culture and treat if indicated Trend fever curve WBC likely reactive LINES/TUBES/DRAINS - ETT (Day #1) OGT (Day #1) LIJ CVC (Day #1) L femoral arterial line (Day #1) L radial arterial line (Day #1) Mejia (Day #1) DVT PROPHYLAXIS - Held DISPOSITION - Transfer to [facility] S[facility] under Dr. Robert Fagan. I spoke with Dr. Fagan (Design Studio Consultant) as well as Spine Surgeon. I also discussed plan of care with Dr. Clements (on-call head refrigerating engineer) via telephone. I have personally spent 68 minutes of critical care time in the direct management of this patient. This is a life/limb threatening event. This includes time spent evaluating patient, direct bedside care, chart review, placing orders, interpretation of diagnostic studies, discussion with consultants, patient, and family members, as well as other required patient management activities. This time is exclusive of all separately billable procedures, and teaching time and separate from and in addition to any other critical care service time. Thank you for allowing us to participate in the care of this patient. Please refer to my attending physician's documentation for any further recommendations. History of Present Illness Reason for Consultation: Shock Requesting Physician: Matteo Attending Physician: Buddy Ponce MD History of Present Illness Mr. Kwaku Santiago is a 48YOM with a history of obesity, CAD with STEMI s/p ANA to RCA (2018), COPD, active smoker, HTN/DLD, NIDDMII (5.4), GERD, gastroparesis who presented to [facility] on 10/27/2024 with complaints of heaviness and numbness in his lower extremities. He was admitted to Medicine with mild МАРИНА and mild hyponatremia. MRI showing thoracic stenosis and lipomatosis about T7. Clinical status being optimized and patient subsequently underwent T6-T9 fusion with T7 decompression. EBL was 1000mL. UOP 150cc per REPAIRER EVAPORATOR. Procedure complicated by intraoperative hypotension requiring neosynephrine. He was transferred post- operatively to ICU for continuation of care. Patient seen on arrival to ICU 107. He is intubated and agitated, tachypneic. Arterial line reading with MAP 40s. Cuff pressure MAP 50s. Pressor increased. 1L LR immediately given. ABG with pH 7.11. 2 ampules of NaHCO3 given and infusion started. Sedation was optimized keeping in mind respiratory compensation. STAT labs show worsening МАРИНА with Cr 3.04 from 2.34. Bicarbonate 8. K 5.7. Lactic acid 10.3. HGB 10.5 from 13 preoperatively. I did order 1U PRBC STAT. Extremities cool, mottled. Weak pulse on US, capillary refill 3 seconds. POCUS with hyperdynamic LV kissing arenas, RV mildly dilated without septal flattening. IVC difficult to visualized. No obvious valvular pathology on limited views. Additional 1L LR given. L femoral arterial line placed and norepinephrine added. Oligoanuric with UOP 25cc since arrival to ICU. ROS unable to be obtained. was updated at bedside. Allergies Allergy/AdvReac Type Severity Reaction Status Date / Time bee venom protein (honey bee) Allergy Intermediate SWELLING Verified 10/23/24 15:41 Home Medications Medication Instructions Recorded Confirmed Type aspirin 81 mg chewable tablet 81 mg PO QAM 05/24/19 10/27/24 History tamsulosin 0.4 mg capsule 0.4 mg PO HS 10/13/23 10/27/24 History Medical Marijuana 1 dose PO DIRECTED PRN Anxiety 12/06/23 10/27/24 History semaglutide 0.25 mg or 0.5 mg (2 0.5 mg (0.736 mL) subcut WK #3 mL 12/29/23 10/27/24 Rx mg/3 mL) subcutaneous pen injector (Ozempic) metoclopramide HCl 5 mg tablet 5 mg PO TID #90 tabs 08/28/24 10/27/24 Rx (Reglan) epinephrine 0.3 mg/0.3 mL 0.3 mg (0.3 mL) IM Q4H PRN 10/23/24 10/27/24 Rx injection, auto-injector anaphylaxis #2 ea losartan 25 mg tablet 12.5 mg (1/2 x 25 mg) PO QAM #30 10/23/24 10/27/24 Rx tabs metoprolol succinate 25 mg 12.5 mg (1/2 x 25 mg) PO HS #30 10/23/24 10/27/24 Rx tablet,extended release 24 hr tabs omeprazole 20 mg tablet,delayed 20 mg PO DAILY 10/27/24 10/27/24 History release Patient History Medical History (Updated 10/31/24 @ 03:22 by Noa Hernandez PA-C) Acute hyponatremia Metabolic acidosis with increased anion gap and reduced excretion of inorganic acids Numbness МАРИНА (acute kidney injury) Elevated troponin Bilateral leg weakness Bilateral leg paresthesia Obesity Gastric ulcer Acid reflux Anxiety History of COVID-19 08/2021 > resolved Diabetes mellitus, type 2 Seizure hx as child, none since age 8 Chronic obstructive pulmonary disease no recent use of inhaler, controlled Cerebral hemorrhage HX-03/2019 STEMI (ST elevation myocardial infarction) 2019 Surgical History History of colonoscopy History of esophagogastroduodenoscopy (EGD) S/P vasectomy H/O oral surgery Family History Mother Brain cancer Other Family history non-contributory Denies family history of Prostate cancer Colorectal cancer Social History Smoking Status: Former smoker Tobacco Type: E-cigarettes / Vaping Second Hand Exposure: No; Do You Dip or Chew Tobacco: No; Hx Alcohol Use: No Hx Substance Use: No Preferred Language: Yoruba Communication Ability: Effective Visual Impairment: No Limitations Hearing Ability: Normal Tilt Tray Driver Required: No Beliefs That Will Affect Care: None marital status: Current Living Situation: Spouse current occupational status: employed current occupation: Nurse [employer] Feels Safe at Home: Yes Assistive Devices: Glasses Review of Systems Review of Systems: Unobtainable due to endotracheal tube Physical Exam Constitutional: + acute distress, + ill appearing and + obese Eyes: PERRL, conjunctivae normal, anicteric sclerae ENMT: ETT in place (8.0), MM unremarkable. Neck: trachea midline and + thick neck Respiratory: + labored breathing and + tachypneic Auscultation: + diminished lung sounds; no crackles, no rales, no rhonchi and no wheezes Severely diminished LLL Cardiovascular: Rate/Rhythm: regular rate and regular rhythm Heart Sounds: + murmur Vessels: no JVD and no carotid bruit Extremities: + varicosities; + abnormal capillary refill and no edema Gastrointestinal (Abdomen): Inspection/Auscultation: abdomen normal to inspect ion and normal bowel sounds; abdomen not distended Percussion/Palpation: abdomen soft; abdomen nontender Musculoskeletal: Surgical site with dressing C/D/I no active bleeding and no obvious hematoma Skin: + turgor decreased, + dry skin and + sca r R groin scar Neurologic: Intubated. Does not follow commands. Moves BUE, LLE Genitourinary: Mejia in place draining small volume dark urine Results & Data Results & Data Vital Signs (Past 12 Hours) Vital Signs Temp Pulse Pulse Resp BP BP Pulse Ox 10/31/24 00:39 36.7 C 81 27 H 73/45 L 98 10/30/24 23:33 63 23 97 10/30/24 22:57 36.7 C 81 24 66/42 L 96 10/30/24 22:46 36.7 C 81 24 79/64 L 96 10/30/24 22:40 36.7 C 79 24 O2 Del Method FiO2 10/31/24 00:39 10/30/24 23:33 10/30/24 22:57 Mechanical Vent 50 10/30/24 22:46 Mechanical Vent 50 10/30/24 22:40 Mechanical Vent 50 Laboratory Results Reviewed Diagnostic Findings Reviewed Medications Administered See STEPHANIE Coding Level of Care Code 33806 CRITICAL CARE 1ST 30-74M Diagnoses Acute renal failure (ARF) N17.9 Bilateral leg numbness R20.0 Gastric ulcer K25.9 Acute blood loss anemia D62 History of spinal fusion Z98.1
[2024-10-31 02:45] LABS: D Dimer 2150 ug/L FEU (0-500)
[2024-10-31 03:02] LABS: Basophils # (auto) 0.04 K/uL (0.00-0.20); Basophils % (auto) 0.2 %; Immature Granulocytes # (auto) 0.54 K/uL (0.01-0.20); Immature Granulocytes % (auto) 2.2 %; Lymphocytes # (auto) 1.69 K/uL (1.20-3.40); Mean Corpuscular Hemoglobin 29.2 pg (25.0-34.0); Mean Corpuscular Hgb Conc 32.4 g/dL (32.0-36.0); Mean Corpuscular Volume 90.2 fL (80.0-100.0); Mean Platelet Volume 9.2 fL (9.4-12.4); Monocytes # (auto) 2.62 K/uL (0.11-0.59); Monocytes % (auto) 10.9 %; Neutrophils # (auto) 19.17 K/uL (1.40-6.50); Neutrophils % (auto) 79.7 %; Nucleated RBC % (auto) 0.8 %; Platelet Count 402 K/uL (130-400); RDW Coefficient of Variation 13.8 % (11.5-14.5); RDW Standard Deviation 44.8 fL (36.4-46.3); Red Blood Count 3.77 M/uL (4.70-6.10); White Blood Count 24.06 K/ul (4.8-10.8)
[2024-10-31 03:14] LABS: BUN Creatinine Ratio 21.3 (10-20); Calcium 7.3 mg/dl (8.6-10.3); Potassium 5.3 mmol/L (3.5-5.1)
[2024-10-31 03:15] LABS: iSTAT Art Bld Gas pCO2 Correct 27 mmHg (35-46); iSTAT Art Bld Gas pH Corrected 7.245 (7.35-7.45); iSTAT Arterial Blood Gas HCO3 12 meg/L (19-24); iSTAT Arterial Blood Gas pCO2 29 mmHg (35-46); iSTAT Arterial Blood Gas pH 7.22 (7.35-7.45); iSTAT Arterial Blood Gas pO2 126 mmHg (80-95); iSTAT Arterial Blood Gas pO2 C 117; iSTAT Carbon Dioxide 13 mmol/L (24-31); iSTAT FiO2 50 %; iSTAT Hematocrit 34 % (42-52); iSTAT Hemoglobin 11.6 g/dl (14.0-18.0); iSTAT Potassium 5.4 mmol/L (3.3-5.0); iSTAT Sample Type Arterial; iSTAT Site Art Line; iSTAT Sodium 129 mmol/L (135-144); iSTAT SpO2 91
[2024-10-31 03:20] LABS: Albumin Level 3.7 gm/dl (3.4-5.0); Bilirubin Direct 0.4 mg/dl (0-0.2); Bilirubin,Total 0.7 mg/dl (0.2-1.0); Total Protein 5.6 gm/dl (6.0-8.3)
[2024-10-31 03:21] LABS: Troponin I High Sensitivity 42.8 pg/ml (0-20)
[2024-10-31] MEDS: LACTATED RINGER'S 1,000 ML IV ONE (03:25)
[2024-10-31] MEDS: ceFAZolin 2000MG 2,000 MG/15 ML SYR IV SCH (03:27)
[2024-10-31 04:21] VITALS: RESP 20; TEMP 95.9; O2SAT 90
[2024-10-31 05:40] VITALS: BP 102/67; PULSE 81
[2024-10-31] MEDS ORDERED: ALBUT/IPRATROP 3MG/0.5MG NEB 3 ML VIAL NEB SCH (07:00)
--- NOTE | 2024-10-31 08:01 | Fluoroscopy Report ---
FL thoracic spine 2V CLINICAL HISTORY: T6-T9 COMPARISON STUDY: None pertinent FLUOROSCOPY TIME: 42.8 seconds FLUOROSCOPY IMAGES: 7 EXPOSURE DOSE: 25.8 mGy FINDINGS: Fluoroscopic guidance provided. IMPRESSION: As above ACT 112: Negative or not required by law. Electronically signed by: Philly Cameron M.D. 10/31/2024 7:59 AM
--- NOTE | 2024-10-31 08:57 | Operative Report ---
[facility] Post Operative Report Pre & Post Diagnosis Operation Date: 10/30/24 07:00 Pre-Op Diagnosis: Thoracic Spinal Cord Stenosis with Developing Paralysis Post-Op Diagnosis: Thoracic Spinal Cord Stenosis with Developing Paralysis I identified the patient and participated in the time-out.: Yes Procedure Operation Date: 10/30/24 07:00 Actual Procedures p T6-T9 Instrumention and Fusion with Navigation,T7-T8 Decompression(Not Applicable) - Sriram Felipe MD Surgeon Sriram Felipe MD Food Processing Plant Manager Schuyler Burton Estimated Blood Loss 1,000 Findings Consistent with Post-Op Diagnosis Specimens None Description of Procedure 1. T7 laminectomy/decompression. (21662) 2. T8 laminectomy/decompression. (09490) 3. T6-7 posterior fusion. (62144) 4. T7-8 posterior fusion. (39369) 5. T8-9 posterior fusion. (31149) 6. Posterior segmental instrumentation, [employer] Solera. (71241) 7. Products of decompression for fusion purposes. (22745) 8. Stereotactic CT-guided navigation for instrumentation. (84465) Patient was taken the operating room after adequate anesthesia was carefully positioned prone on the OSI Dm top table. All areas were checked for positioning, a preprep was performed for the thoracic region, I brought in fluoroscopy and marked for the approximate location of the incision based on radiographic landmarks including the ribs, the rib count relative to the level levels of the procedure were confirmed. After marking for the area of the incision, prep and drape was performed, began the procedure with a midline incision taken down through the subcutaneous tissues down to the spinous processes and then out laterally exposing the lamina and transverse processes in the thoracic region. Fluoroscopy was brought in I then reconfirmed our location and once doing so then expanded the incision to allow for placement of the attachment to the spinous process for the navigation and exposed all appropriate areas for the instrumentation. The O-arm was brought into the operating room and then the spin was performed, upon completion I used the CT-guided navigation system then to insert the instrumentation. Starting at T9, used a high-speed bur to make the start point followed by utilization of tap and/or gearshift probe to advance into the vertebral body. It is to note that the pedicles for all the thoracic levels were limited in size, for the T9 level, I used a 4 mm tap, and inserted 4.5 millimeter screws from the Medtronic Solera instrumentation 40 mm in length. I then moved to the T6 level, and using navigation system once again made start point using high-speed bur and advanced this into the pedicle. This was diminished in size, I used a 3.[address]-guided navigation followed by insertion of 4 mm screws, 40 mm in length. At the T7 and T8 levels I alternated the screws left and right respectively, with a 4 mm diameter screw at T7 and a 4.5 millimeter screw at T8 on the right in a similar fashion. Rods were then selected and contoured appropriately. Prior to insertion the appropriate areas for arthrodesis were decorticated. Decompression was then performed by removal of the spinous processes overlying the T7 and T8 lamina, I used a high-speed bur to then performed laminectomy at T7 and T8, the bone dust was collected for fusion purposes using a [email or web address] device. After thinning the bone to cortical level or removing it, I then used a combination of curettes and Kerrison punches to remove the ligamentum flavum. It is to note that significant epidural vessel bleeding in the epidural lipomatosis was encountered. Time was spent using a combination of bipolar cautery, Floseal and Surgicel, all applied to address this. This was completed with removal of the epidural fat and exposure of the dura from the superior aspect of T7 down to the inferior aspect of T8 completing the decompression. Additional Floseal was applied until hemostasis was accomplished. The operative site had been irrigated previously, at this point I then placed the fusion materials in the posterolateral region bilaterally, rods had been placed with setscrews all torqued properly. Vancomycin powder was placed in the operative site and closed with 2 layers of 0 Vicryl sutures followed by an additional layer of 2-0 Vicryl sutures and patrciio for the skin. Due to the renal issues it was decided to place the patient in ICU, this was discussed with anesthesia. I attest to the content of the Intraoperative Record and any orders documented therein. Any exceptions are noted below.
[2024-10-31] MEDS ORDERED: PANTOprazole 40 MG TAB PO SCH (09:00)
[2024-10-31] MEDS ORDERED: DOCUSATE SODIUM/SENNA 50/8.6MG TAB PO SCH (21:00)
--- NOTE | 2024-10-31 22:13 | Electrocardiogram Report ---
Test Reason : Blood Pressure : */* mmHG Vent. Rate : 83 BPM Atrial Rate : 83 BPM P-R Int : 152 ms QRS Dur : 144 ms QT Int : 438 ms P-R-T Axes : 49 77 -32 degrees QTcB Int : 514 ms Sinus rhythm with Premature atrial complexes Left bundle branch block Abnormal ECG When compared with ECG of 27-Oct-2024 10:48, Premature atrial complexes are now Present Confirmed by Josh Naik ([id number]) on 10/31/2024 10:12:40 PM Referred By: REFERRED SELF Confirmed By: Josh Naik
[2024-11-02 12:22] LABS: iSTAT Art Bld Gas pCO2 Correct 27 mmHg (35-46); iSTAT Arterial Blood Gas HCO3 8 meg/L (19-24); iSTAT Arterial Blood Gas pCO2 26 mmHg (35-46); iSTAT Arterial Blood Gas pH 7.11 (7.35-7.45); iSTAT Arterial Blood Gas pO2 162 mmHg (80-95); iSTAT Arterial Blood Gas pO2 C 167; iSTAT Carbon Dioxide 9 mmol/L (24-31); iSTAT FiO2 80 %; iSTAT Hematocrit 28 % (42-52); iSTAT Hemoglobin 9.5 g/dl (14.0-18.0); iSTAT Potassium 5.1 mmol/L (3.3-5.0); iSTAT Sample Type Arterial; iSTAT Site Art Line; iSTAT Sodium 129 mmol/L (135-144); iSTAT SpO2 97
== END 2024-10-31 05:12 | disposition short-term general hospital (02) | DRG 447 ==
LOC: ED 10:33 → SUATTDRO 16:38 → 2S 16:38 → 2N 10-29 23:12 → 1E 10-30 22:52